=== PATIENT | female | born 1975 | race African-American/Black ===

== ENCOUNTER 2017-01-15 12:02 | Emergency (ER) | payer MEDICAID, OTHER ==
[~2017-01-15] VITALS: Ht 157.5 cm; Wt 87.0 kg
[~2017-01-15 12:02] MED LIST: ADVAIR; ALBU6.7H2; LOSARTAN; [UNRECOGNIZED DRUG - OTHER]
[2017-01-15 13:36] VITALS: BP 161/100
[2017-01-15 15:40] LABS: CLARITY URINE CLEAR (CLEAR); COLOR URINE YELLOW (YELLOW); GLUCOSE URINE NEGATIVE (NEGATIVE); KETONES URINE NEGATIVE (NEGATIVE); LEUKOCYTE ESTERASE URINE TRACE (NEGATIVE); NITRITE URINE NEGATIVE (NEGATIVE); OCCULT BLOOD URINE TRACE (NEGATIVE); PROTEIN URINE NEGATIVE (NEGATIVE); SPECIFIC GRAVITY URINE 1.025 (1.005-1.030)
[2017-01-15 15:55] LABS: RBC URINE 0-2 /hpf (0-2)
[2017-01-15 15:56] LABS: BACTERIA URINE TRACE; SQUAMOUS EPITHELIAL CELL URINE 1+ /lpf (RARE/1+)
== END 2017-01-15 17:40 | disposition home or self-care (01) ==
LOC: ER 13:36
DX: B34.9 Viral infection, unspecified (principal); N39.0 Urinary tract infection, site not specified; I10 Essential (primary) hypertension; J45.909 Unspecified asthma, uncomplicated
CPT/HCPCS: 81001; 99283

== ENCOUNTER 2017-02-08 08:13 | Emergency (ER) | payer OTHER ==
[~2017-02-08] VITALS: Ht 157.5 cm; Wt 85.0 kg
[2017-02-08 09:53] VITALS: BP 137/91
== END 2017-02-08 09:54 | disposition home or self-care (01) ==
LOC: ER 08:15
DX: J02.9 Acute pharyngitis, unspecified (principal); J06.9 Acute upper respiratory infection, unspecified; J45.909 Unspecified asthma, uncomplicated; I10 Essential (primary) hypertension; Z98.51 Tubal ligation status; H66.90 Otitis media, unspecified, unspecified ear; R05 Cough
CPT/HCPCS: 87070; 87430; 99284

== ENCOUNTER 2017-03-20 13:15 | Emergency (ER) | payer OTHER ==
[~2017-03-20] VITALS: Ht 157.5 cm; Wt 88.0 kg
[~2017-03-20 13:15] MED LIST changes: -[UNRECOGNIZED DRUG - OTHER]
[2017-03-20 15:33] LABS: CHLORIDE 109 mEq/L (98-107)
[2017-03-20 15:34] LABS: GLUCOSE URINE NEGATIVE (NEGATIVE); KETONES URINE NEGATIVE (NEGATIVE); LEUKOCYTE ESTERASE URINE 1+ (NEGATIVE); NITRITE URINE NEGATIVE (NEGATIVE); OCCULT BLOOD URINE NEGATIVE (NEGATIVE); PROTEIN URINE NEGATIVE (NEGATIVE); SPECIFIC GRAVITY URINE 1.021 (1.005-1.030)
[2017-03-20 15:36] LABS: CLARITY URINE SL HAZY (CLEAR); COLOR URINE PALE YELLOW (YELLOW)
[2017-03-20 15:40] LABS: CARBON DIOXIDE 26 mEq/L (21-32)
[2017-03-20 15:43] LABS: BASOPHILS % 0.8 % (0.0-2.0); EOSINOPHILS % 4.2 % (0.0-5.0); HEMATOCRIT. 34.1 % (36.0-48.0); HEMOGLOBIN. 11.2 g/dL (12.0-16.0); LYMPHOCYTES % 37.4 % (20.0-50.0); MEAN CORPUSCULAR HEMOGLOBIN 29.6 pg (28.0-32.0); MEAN CORPUSCULAR VOLUME 89.8 fL (81.0-99.0); MEAN PLATELET VOLUME 8.9 fl (7.4-10.4); MONOCYTES % 9.4 % (2.0-8.0); NEUTROPHILS % 48.2 % (40.0-76.0); PLATELET 267 x1000/uL (130-400); RED CELL DISTRIBUTION WIDTH 15.9 % (11.6-14.6)
[2017-03-20 16:39] VITALS: BP 121/69
== END 2017-03-20 16:40 | disposition home or self-care (01) ==
LOC: ER 15:30
DX: N39.0 Urinary tract infection, site not specified (principal); I10 Essential (primary) hypertension; J45.909 Unspecified asthma, uncomplicated
CPT/HCPCS: 36415; 80053; 81001; 81025; 85025; 99284; Z7610

== ENCOUNTER 2017-05-06 20:01 | Emergency (ER) | payer OTHER ==
[~2017-05-06] VITALS: Ht 157.5 cm; Wt 89.0 kg
[2017-05-07] MEDS ORDERED: FAMOTIDINE 20MG/2ML VIAL IV STA (00:49)
[2017-05-07] MEDS ORDERED: ONDANSETRON HCL 4MG/2ML VIAL IV STA (00:49)
[2017-05-07] MEDS ORDERED: MORPHINE SULFATE 4 MG/ML CPJ (NOT FOR IM USE) IV STA (00:49)
[2017-05-07] MEDS ORDERED: SODIUM CHLORIDE 0.9% 1,000 ML IV ONE (00:49)
[2017-05-07] MEDS ORDERED: MAGNESIUM/ALUMINUM HYDROXIDE/SIMETHICONE 30ML UDC PO STA (00:49)
[2017-05-07 01:18] LABS: BASOPHILS % 1.1 % (0.0-2.0); EOSINOPHILS % 4.5 % (0.0-5.0); HEMOGLOBIN. 11.5 g/dL (12.0-16.0); LYMPHOCYTES % 33.8 % (20.0-50.0); MEAN CORPUSCULAR HEMOGLOBIN 30.4 pg (28.0-32.0); MEAN CORPUSCULAR VOLUME 89.7 fL (81.0-99.0); MEAN PLATELET VOLUME 8.7 fl (7.4-10.4); MONOCYTES % 7.2 % (2.0-8.0); NEUTROPHILS % 53.4 % (40.0-76.0); PLATELET 261 x1000/uL (130-400); RED BLOOD CELL COUNT 3.79 mill/uL (4.2-5.4); RED CELL DISTRIBUTION WIDTH 15.9 % (11.6-14.6)
[2017-05-07 01:24] LABS: CHLORIDE 107 mEq/L (98-107)
[2017-05-07 01:26] LABS: INR 1.1
[2017-05-07 01:32] LABS: CARBON DIOXIDE 27 mEq/L (21-32)
[2017-05-07 01:55] LABS: CLARITY URINE CLOUDY (CLEAR); COLOR URINE YELLOW (YELLOW); GLUCOSE URINE NEGATIVE (NEGATIVE); KETONES URINE NEGATIVE (NEGATIVE); LEUKOCYTE ESTERASE URINE NEGATIVE (NEGATIVE); NITRITE URINE NEGATIVE (NEGATIVE); OCCULT BLOOD URINE NEGATIVE (NEGATIVE); PH URINE 6.5 (4.5-8.0); PROTEIN URINE NEGATIVE (NEGATIVE); SPECIFIC GRAVITY URINE 1.017 (1.005-1.030); UROBILINOGEN URINE 0.2 E.U./dL (0.2-1.0)
[2017-05-07] MEDS ORDERED: HYDROCODONE/APAP 7.5/325MG 1 TAB TABLET PO NR (02:15)
[2017-05-07 02:31] VITALS: BP 166/94
[2017-05-07] MEDS ORDERED: IPRATROPIUM/ALBUTEROL 0.5-3(2.5)MG/3ML NEB HHN ONE (04:30)
== END 2017-05-07 06:38 | disposition home or self-care (01) ==
LOC: ER 20:01
DX: K57.92 Diverticulitis of intestine, part unspecified, without perforation or abscess without bleeding (principal); J45.909 Unspecified asthma, uncomplicated; I10 Essential (primary) hypertension; N28.89 Other specified disorders of kidney and ureter; Z98.51 Tubal ligation status
CPT/HCPCS: 36415; 74176; 80053; 81001; 81025; 83690; 85025; 85610; 96361; 96374; 96375; 99285; J2270; J2405; J3490; J7030; Z7610; J7620

== ENCOUNTER 2017-05-24 18:52 | Emergency (ER) | payer OTHER ==
[~2017-05-24] VITALS: Ht 157.5 cm; Wt 88.0 kg
[2017-05-25 00:55] VITALS: BP 144/82
== END 2017-05-25 01:15 | disposition home or self-care (01) ==
LOC: ER 05-25 00:34
DX: H60.91 Unspecified otitis externa, right ear (principal); J30.9 Allergic rhinitis, unspecified; I10 Essential (primary) hypertension; J45.909 Unspecified asthma, uncomplicated
CPT/HCPCS: 99283

== ENCOUNTER 2017-08-18 11:29 | Emergency (ER) | payer OTHER ==
[~2017-08-18] VITALS: Ht 157.5 cm; Wt 91.0 kg
[2017-08-18 12:35] LABS: CLARITY URINE CLOUDY (CLEAR); COLOR URINE YELLOW (YELLOW); GLUCOSE URINE NEGATIVE (NEGATIVE); KETONES URINE NEGATIVE (NEGATIVE); LEUKOCYTE ESTERASE URINE NEGATIVE (NEGATIVE); NITRITE URINE NEGATIVE (NEGATIVE); OCCULT BLOOD URINE TRACE (NEGATIVE); PH URINE 5.5 (4.5-8.0); PROTEIN URINE NEGATIVE (NEGATIVE); SPECIFIC GRAVITY URINE 1.029 (1.005-1.030)
[2017-08-18] MEDS ORDERED: MORPHINE SULFATE 4 MG/ML CPJ (NOT FOR IM USE) IV STA (12:56)
[2017-08-18] MEDS ORDERED: SODIUM CHLORIDE 0.9% 1,000 ML IV ONE (12:56)
[2017-08-18] MEDS ORDERED: ONDANSETRON HCL 4MG/2ML VIAL IV STA (12:56)
[2017-08-18 13:35] LABS: BASOPHILS % 1.1 % (0.0-2.0); EOSINOPHILS % 5.8 % (0.0-5.0); HEMOGLOBIN. 11.4 g/dL (12.0-16.0); LYMPHOCYTES % 29.1 % (20.0-50.0); MEAN CORPUSCULAR HEMOGLOBIN 30.4 pg (28.0-32.0); MEAN CORPUSCULAR VOLUME 90.2 fL (81.0-99.0); MONOCYTES % 6.5 % (2.0-8.0); NEUTROPHILS % 57.5 % (40.0-76.0); PLATELET 307 x1000/uL (130-400); RED BLOOD CELL COUNT 3.76 mill/uL (4.2-5.4); RED CELL DISTRIBUTION WIDTH 15.6 % (11.6-14.6)
[2017-08-18 13:48] LABS: CARBON DIOXIDE 25 mEq/L (21-32); CHLORIDE 108 mEq/L (98-107)
[2017-08-18 13:49] LABS: HCG SCREEN NEGATIVE
[2017-08-18 15:12] VITALS: BP 141/75
[2017-08-18 15:56] LABS: INR 1.1
== END 2017-08-18 15:15 | disposition home or self-care (01) ==
LOC: ER 11:49
DX: N28.89 Other specified disorders of kidney and ureter (principal); R11.0 Nausea; J45.909 Unspecified asthma, uncomplicated; I10 Essential (primary) hypertension
CPT/HCPCS: 36415; 76770; 80053; 81001; 83690; 84703; 85025; 85610; 96361; 96374; 96375; 99285; J2270; J2405; J7030; Z7610

== ENCOUNTER 2017-09-15 11:26 | Observation (INO) | payer OTHER ==
[~2017-09-15] VITALS: Ht 157.5 cm; Wt 90.7 kg
[~2017-09-15 11:26] MED LIST changes: -ALBU6.7H2; +ALBU6.7H3
[2017-09-15 13:13] LABS: BASOPHILS % 0.9 % (0.0-2.0); EOSINOPHILS % 4.4 % (0.0-5.0); HEMATOCRIT. 35.1 % (36.0-48.0); HEMOGLOBIN. 11.6 g/dL (12.0-16.0); LYMPHOCYTES % 35.4 % (20.0-50.0); MEAN CORPUSCULAR HEMOGLOBIN 29.3 pg (28.0-32.0); MEAN CORPUSCULAR VOLUME 89.1 fL (81.0-99.0); MEAN PLATELET VOLUME 8.1 fl (7.4-10.4); MONOCYTES % 6.7 % (2.0-8.0); NEUTROPHILS % 52.6 % (40.0-76.0); PLATELET 298 x1000/uL (130-400); RED BLOOD CELL COUNT 3.94 mill/uL (4.2-5.4)
[2017-09-15] MEDS ORDERED: ACETAMINOPHEN 325MG TABLET PO ONE (13:15)
[2017-09-15 13:30] LABS: CARBON DIOXIDE 29 mEq/L (21-32); CHLORIDE 107 mEq/L (98-107)
[2017-09-15 13:30] LABS: CLARITY URINE CLOUDY (CLEAR); COLOR URINE YELLOW (YELLOW); GLUCOSE URINE NEGATIVE (NEGATIVE); KETONES URINE TRACE (NEGATIVE); LEUKOCYTE ESTERASE URINE TRACE (NEGATIVE); NITRITE URINE NEGATIVE (NEGATIVE); OCCULT BLOOD URINE NEGATIVE (NEGATIVE); PROTEIN URINE TRACE (NEGATIVE); SPECIFIC GRAVITY URINE 1.024 (1.005-1.030); UROBILINOGEN URINE 0.2 E.U./dL (0.2-1.0)
[2017-09-15 13:38] LABS: INR 1.1; PROTHROMBIN TIME 10.9 sec (9.4-11.6)
[2017-09-15 13:54] LABS: *AMPHETAMINES SCREEN URINE NEGATIVE (NEGATIVE); *BARBITURATES SCREEN URINE NEGATIVE (NEGATIVE); *BENZODIAZEPINES SCREEN URINE NEGATIVE (NEGATIVE); *COCAINE SCREEN URINE NEGATIVE (NEGATIVE); CANNABINOID URINE SCREEN NEGATIVE (NEGATIVE); METHADONE URINE SCREEN NEGATIVE (NEGATIVE); OPIATES URINE SCREEN NEGATIVE (NEGATIVE); PHENCYCLIDINE URINE SCREEN NEGATIVE (NEGATIVE)
[2017-09-15] MEDS ORDERED: IOHEXOL-300 100 ML BOTTLE ONE (18:49)
[2017-09-15 20:00] VITALS: BP 145/94
[2017-09-15] MEDS ORDERED: ACETAMINOPHEN 325MG TABLET PO PRN (21:45)
[2017-09-15] MEDS ORDERED: MAGNESIUM/ALUMINUM HYDROXIDE/SIMETHICONE 30ML UDC PO PRN (21:45)
[2017-09-15] MEDS ORDERED: DIPHENHYDRAMINE 50MG/ML VIAL IV PRN (21:45)
[2017-09-15] MEDS ORDERED: ONDANSETRON HCL 4MG/2ML VIAL IV PRN (21:45)
[2017-09-15] MEDS ORDERED: CLONIDINE 0.1MG TABLET PO PRN (21:45)
[2017-09-15] MEDS: MORPHINE SULFATE 2 MG/ML CPJ (NOT FOR IM USE) IV PRN (22:09)
[2017-09-16] VITALS: BP 128/79
[2017-09-16 04:00] VITALS: BP 128/79
[2017-09-16] MEDS: MORPHINE SULFATE 2 MG/ML CPJ (NOT FOR IM USE) IV PRN ×2 (06:24→10:59)
[2017-09-16] MEDS: DEXT 5%/0.45% NACL KCL 20MEQ/L 1,000 ML IV SCH ×2 (08:45→18:41)
[2017-09-16] MEDS ORDERED: FAMOTIDINE 20MG/2ML VIAL IV SCH (09:00)
[2017-09-16 12:00] VITALS: BP 161/93
[2017-09-16 16:00] VITALS: BP 133/85
[2017-09-16 20:00] VITALS: BP 133/85
[2017-09-16 20:14] VITALS: BP 133/65
== END 2017-09-16 20:40 | disposition home or self-care (01) ==
LOC: ER 12:42 → INTOOBSV 16:19 → 6EST 16:19 → EDBEDREQ 16:22 → ENRESERV 16:43
PROVIDERS: ADMIT Internal Medicine; ATTEND Internal Medicine
DX: K85.90 Acute pancreatitis without necrosis or infection, unspecified (principal); J44.9 Chronic obstructive pulmonary disease, unspecified; I10 Essential (primary) hypertension
CPT/HCPCS: 36415; 71010; 74177; 76705; 80053; 80305; 81001; 81025; 83690; 85025; 85610; 96361; 96374; 96375; 96376; 99285; G0378; J2270; J3490; Q9967

== ENCOUNTER 2018-01-04 18:44 | Emergency (ER) | payer OTHER ==
[~2018-01-04] VITALS: Ht 157.5 cm; Wt 105.0 kg
[2018-01-04 18:51] VITALS: BP 172/87
[2018-01-04] MEDS ORDERED: ACETAMINOPHEN 500MG TABLET PO ONE (20:15)
== END 2018-01-04 21:54 | disposition home or self-care (01) ==
LOC: ER 18:44
DX: S76.012A Strain of muscle, fascia and tendon of left hip, initial encounter (principal); S76.912A Strain of unspecified muscles, fascia and tendons at thigh level, left thigh, initial encounter; J45.909 Unspecified asthma, uncomplicated; Z85.528 Personal history of other malignant neoplasm of kidney; Z98.51 Tubal ligation status; Z98.890 Other specified postprocedural states; V49.88XA Car occupant (driver) (passenger) injured in other specified transport accidents, initial encounter; Y93.89 Activity, other specified; Y92.89 Other specified places as the place of occurrence of the external cause; Y99.8 Other external cause status
CPT/HCPCS: 72170; 99283; 99284

== ENCOUNTER 2018-02-23 08:26 | Emergency (ER) | payer OTHER ==
[~2018-02-23] VITALS: Ht 157.5 cm; Wt 93.0 kg
[2018-02-23 08:31] VITALS: BP 174/90
[2018-02-23] MEDS ORDERED: TETRACAINE 0.5% OPHTH DROPS 4ML RIGHTEYE ONE (08:45)
[2018-02-23] MEDS ORDERED: FLUORESCEIN SODIUM 1MG/STRIP RIGHTEYE ONE (09:00)
== END 2018-02-23 09:37 | disposition home or self-care (01) ==
LOC: ER 08:26
DX: H11.31 Conjunctival hemorrhage, right eye (principal); J45.909 Unspecified asthma, uncomplicated
CPT/HCPCS: 99283

== ENCOUNTER 2018-03-25 08:54 | Emergency (ER) | payer OTHER ==
[~2018-03-25] VITALS: Ht 157.5 cm; Wt 93.0 kg
[~2018-03-25 08:54] MED LIST changes: -ALBU6.7H3; +ALBU6.7H9
[2018-03-25 10:04] LABS: BASOPHILS % 0.8 % (0.0-2.0); EOSINOPHILS % 4.5 % (0.0-5.0); HEMATOCRIT. 33.8 % (36.0-48.0); HEMOGLOBIN. 11.1 g/dL (12.0-16.0); LYMPHOCYTES % 33.4 % (20.0-50.0); MEAN CORPUSCULAR HEMOGLOBIN 29.1 pg (28.0-32.0); MEAN PLATELET VOLUME 8.4 fl (7.4-10.4); MONOCYTES % 9.3 % (2.0-8.0); PLATELET 299 x1000/uL (130-400); RED CELL DISTRIBUTION WIDTH 15.8 % (11.6-14.6)
[2018-03-25 10:10] LABS: CHLORIDE 109 mEq/L (98-107)
[2018-03-25 10:11] LABS: PROTHROMBIN TIME 10.7 sec (9.4-11.6)
[2018-03-25] MEDS ORDERED: ACETAMINOPHEN 325MG TABLET PO ONE (10:45)
[2018-03-25] MEDS ORDERED: SODIUM CHLORIDE 0.9% 1,000 ML IV ONE (10:45)
[2018-03-25 10:54] LABS: CLARITY URINE CLEAR (CLEAR); COLOR URINE YELLOW (YELLOW); KETONES URINE NEGATIVE (NEGATIVE); LEUKOCYTE ESTERASE URINE NEGATIVE (NEGATIVE); NITRITE URINE NEGATIVE (NEGATIVE); OCCULT BLOOD URINE NEGATIVE (NEGATIVE); PH URINE 6.5 (4.5-8.0); PROTEIN URINE NEGATIVE (NEGATIVE); SPECIFIC GRAVITY URINE 1.015 (1.005-1.030); UROBILINOGEN URINE 0.2 E.U./dL (0.2-1.0)
[2018-03-25 17:25] VITALS: BP 155/78
== END 2018-03-25 17:46 | disposition short-term general hospital (02) ==
LOC: ER 08:54 → EDBEDREQ 11:01 → ER 17:46 → CANBEDREQ 19:23
DX: R07.9 Chest pain, unspecified (principal); N17.9 Acute kidney failure, unspecified; D64.9 Anemia, unspecified; E88.09 Other disorders of plasma-protein metabolism, not elsewhere classified; I10 Essential (primary) hypertension; J45.909 Unspecified asthma, uncomplicated
CPT/HCPCS: 36415; 71045; 80053; 81003; 82570; 83880; 84300; 84484; 84540; 85025; 85610; 93005; 96360; 96361; 99285; J7030; Z7610

== ENCOUNTER 2018-04-20 11:45 | Emergency (ER) | payer OTHER ==
[~2018-04-20] VITALS: Ht 157.5 cm; Wt 99.0 kg
[2018-04-20 13:02] VITALS: BP 147/96
[2018-04-20 13:39] LABS: HEMOGLOBIN 10.6 g/dL (12.0-16.0); MEAN CORPUSCULAR HEMOGLOBIN 29.1 pg (28.0-32.0); MEAN CORPUSCULAR VOLUME 88.1 fL (81.0-99.0); PLATELET 291 x1000/uL (130-400); RED BLOOD CELL COUNT 3.63 mill/uL (4.2-5.4); RED CELL DISTRIBUTION WIDTH 16.2 % (11.6-14.6)
== END 2018-04-20 13:20 | disposition home or self-care (01) ==
LOC: ER 11:45
DX: Z76.0 Encounter for issue of repeat prescription (principal); I10 Essential (primary) hypertension
CPT/HCPCS: 36415; 71045; 80048; 85027; 93005; 99285

== ENCOUNTER 2018-06-30 18:04 | Emergency (ER) | payer OTHER ==
[~2018-06-30] VITALS: Ht 170.2 cm; Wt 97.0 kg
[2018-06-30 20:42] LABS: EOSINOPHILS % 4.4 % (0.0-5.0); HEMATOCRIT. 33.7 % (36.0-48.0); HEMOGLOBIN. 10.8 g/dL (12.0-16.0); LYMPHOCYTES % 34.6 % (20.0-50.0); MEAN CORPUSCULAR VOLUME 87.5 fL (81.0-99.0); MEAN PLATELET VOLUME 8.3 fl (7.4-10.4); MONOCYTES % 7.4 % (2.0-8.0); NEUTROPHILS % 52.6 % (40.0-76.0); PLATELET 320 x1000/uL (130-400); RED BLOOD CELL COUNT 3.85 mill/uL (4.2-5.4); RED CELL DISTRIBUTION WIDTH 16.2 % (11.6-14.6)
[2018-06-30 20:49] LABS: CHLORIDE 107 mEq/L (98-107); PROTHROMBIN TIME 10.4 sec (9.1-11.1)
[2018-06-30] MEDS ORDERED: SODIUM CHLORIDE 0.9% 1,000 ML IV ONE (23:25)
[2018-06-30] MEDS ORDERED: MORPHINE SULFATE 4 MG/ML CPJ (NOT FOR IM USE) IV STA (23:25)
[2018-06-30] MEDS ORDERED: ONDANSETRON HCL 4MG/2ML INJ IV STA (23:25)
[2018-06-30 23:41] LABS: CLARITY URINE CLOUDY (CLEAR); COLOR URINE YELLOW (YELLOW); KETONES URINE TRACE (NEGATIVE); LEUKOCYTE ESTERASE URINE NEGATIVE (NEGATIVE); NITRITE URINE NEGATIVE (NEGATIVE); OCCULT BLOOD URINE NEGATIVE (NEGATIVE); PH URINE 5.5 (4.5-8.0); PROTEIN URINE TRACE (NEGATIVE); SPECIFIC GRAVITY URINE 1.024 (1.005-1.030); UROBILINOGEN URINE 0.2 E.U./dL (0.2-1.0)
[2018-07-01 01:49] VITALS: BP 123/88
== END 2018-07-01 01:54 | disposition home or self-care (01) ==
LOC: ER 18:04
DX: K85.90 Acute pancreatitis without necrosis or infection, unspecified (principal)
CPT/HCPCS: 36415; 74176; 80053; 81003; 81025; 83690; 85025; 85610; 96374; 96375; 99285; J2270; J2405; J7030

== ENCOUNTER 2018-07-16 10:29 | Emergency (ER) | payer OTHER ==
[~2018-07-16] VITALS: Ht 157.5 cm; Wt 97.0 kg
[2018-07-16] MEDS ORDERED: METOCLOPRAMIDE HCL 10MG/2ML VIAL IV ONE (11:00)
[2018-07-16] MEDS ORDERED: CLONIDINE 0.2MG TABLET PO ONE (11:00)
[2018-07-16] MEDS ORDERED: DIPHENHYDRAMINE 50MG/ML VIAL IV ONE (11:00)
[2018-07-16 11:18] LABS: CLARITY URINE CLEAR (CLEAR); COLOR URINE YELLOW (YELLOW); KETONES URINE TRACE (NEGATIVE); LEUKOCYTE ESTERASE URINE NEGATIVE (NEGATIVE); NITRITE URINE NEGATIVE (NEGATIVE); OCCULT BLOOD URINE 1+ (NEGATIVE); PH URINE 5.5 (4.5-8.0); PROTEIN URINE 1+ (NEGATIVE); SPECIFIC GRAVITY URINE 1.025 (1.005-1.030); UROBILINOGEN URINE 0.2 E.U./dL (0.2-1.0)
[2018-07-16 11:25] LABS: BASOPHILS % 1.4 % (0.0-2.0); EOSINOPHILS % 3.8 % (0.0-5.0); HEMATOCRIT. 34.5 % (36.0-48.0); HEMOGLOBIN. 11.2 g/dL (12.0-16.0); LYMPHOCYTES % 32.9 % (20.0-50.0); MEAN CORPUSCULAR HEMOGLOBIN 28.7 pg (28.0-32.0); MEAN CORPUSCULAR VOLUME 88.2 fL (81.0-99.0); MEAN PLATELET VOLUME 8.2 fl (7.4-10.4); MONOCYTES % 7.3 % (2.0-8.0); NEUTROPHILS % 54.6 % (40.0-76.0); PLATELET 330 x1000/uL (130-400); RED BLOOD CELL COUNT 3.91 mill/uL (4.2-5.4); RED CELL DISTRIBUTION WIDTH 16.5 % (11.6-14.6)
[2018-07-16 11:32] LABS: CHLORIDE 109 mEq/L (98-107)
[2018-07-16 11:36] LABS: PARTIAL THROMBOPLASTIN TIME 23.8 sec (23.4-31.0); PROTHROMBIN TIME 10.4 sec (9.1-11.1)
[2018-07-16 13:41] VITALS: BP 145/93
== END 2018-07-16 13:44 | disposition home or self-care (01) ==
LOC: ER 10:29
DX: G43.909 Migraine, unspecified, not intractable, without status migrainosus (principal); N39.0 Urinary tract infection, site not specified; H53.143 Visual discomfort, bilateral; J45.909 Unspecified asthma, uncomplicated; I10 Essential (primary) hypertension; Z98.51 Tubal ligation status; Z90.5 Acquired absence of kidney
CPT/HCPCS: 36415; 80053; 81003; 81025; 85025; 85610; 85730; 96374; 96375; 99284; J1200; J2765

== ENCOUNTER 2018-08-11 08:21 | Emergency (ER) | payer OTHER ==
[~2018-08-11] VITALS: Ht 162.6 cm; Wt 93.0 kg
[2018-08-11] MEDS ORDERED: HYDROCODONE/ACETAMINOPHEN 5/325MG TABLET PO ONE ×2 (09:15→11:00)
[2018-08-11 10:17] LABS: CLARITY URINE CLOUDY (CLEAR); COLOR URINE YELLOW (YELLOW); KETONES URINE NEGATIVE (NEGATIVE); LEUKOCYTE ESTERASE URINE NEGATIVE (NEGATIVE); NITRITE URINE NEGATIVE (NEGATIVE); OCCULT BLOOD URINE 2+ (NEGATIVE); PH URINE 5.5 (4.5-8.0); PROTEIN URINE TRACE (NEGATIVE); SPECIFIC GRAVITY URINE 1.023 (1.005-1.030); UROBILINOGEN URINE 0.2 E.U./dL (0.2-1.0)
[2018-08-11 11:15] VITALS: BP 121/85
== END 2018-08-11 11:20 | disposition home or self-care (01) ==
LOC: ER 08:21
DX: N39.0 Urinary tract infection, site not specified (principal); J45.909 Unspecified asthma, uncomplicated; I10 Essential (primary) hypertension; Z98.51 Tubal ligation status; Z98.890 Other specified postprocedural states
CPT/HCPCS: 81025; 99284

== ENCOUNTER 2018-08-28 08:25 | Emergency (ER) | payer OTHER ==
[~2018-08-28] VITALS: Ht 162.6 cm; Wt 85.5 kg
[2018-08-28] MEDS ORDERED: ONDANSETRON HCL 4MG/2ML INJ IV STA (09:33)
[2018-08-28] MEDS ORDERED: SODIUM CHLORIDE 0.9% 1,000 ML IV ONE (09:33)
[2018-08-28 10:18] LABS: PROTHROMBIN TIME 10.1 sec (9.1-11.1)
[2018-08-28 10:20] LABS: BASOPHILS % 0.9 % (0.0-2.0); EOSINOPHILS % 3.4 % (0.0-5.0); HEMATOCRIT. 37.8 % (36.0-48.0); HEMOGLOBIN. 12.4 g/dL (12.0-16.0); LYMPHOCYTES % 28.3 % (20.0-50.0); MEAN CORPUSCULAR HEMOGLOBIN 29.3 pg (28.0-32.0); MEAN CORPUSCULAR VOLUME 89.4 fL (81.0-99.0); MEAN PLATELET VOLUME 8.6 fl (7.4-10.4); NEUTROPHILS % 60.4 % (40.0-76.0); PLATELET 297 x1000/uL (130-400); RED BLOOD CELL COUNT 4.23 mill/uL (4.2-5.4); RED CELL DISTRIBUTION WIDTH 17.8 % (11.6-14.6)
[2018-08-28 10:25] LABS: CLARITY URINE CLOUDY (CLEAR); COLOR URINE YELLOW (YELLOW); KETONES URINE NEGATIVE (NEGATIVE); LEUKOCYTE ESTERASE URINE NEGATIVE (NEGATIVE); NITRITE URINE NEGATIVE (NEGATIVE); OCCULT BLOOD URINE NEGATIVE (NEGATIVE); PROTEIN URINE TRACE (NEGATIVE); SPECIFIC GRAVITY URINE 1.022 (1.005-1.030); UROBILINOGEN URINE 0.2 E.U./dL (0.2-1.0)
[2018-08-28] MEDS: MORPHINE SULFATE 4 MG/ML CPJ (NOT FOR IM USE) IV ONE ×2 (10:28→11:28)
[2018-08-28 10:36] LABS: CHLORIDE 108 mEq/L (98-107)
[2018-08-28 13:33] VITALS: BP 143/82
== END 2018-08-28 13:38 | disposition home or self-care (01) ==
LOC: ER 08:25
DX: R10.31 Right lower quadrant pain (principal); R11.2 Nausea with vomiting, unspecified; Z85.528 Personal history of other malignant neoplasm of kidney; Z90.5 Acquired absence of kidney
CPT/HCPCS: 36415; 74176; 80053; 81003; 81025; 83690; 85025; 85610; 93005; 96361; 96374; 96375; 99285; J2270; J2405; J7030

== ENCOUNTER 2018-09-25 13:47 | Emergency (ER) | payer OTHER ==
[~2018-09-25] VITALS: Ht 157.5 cm; Wt 93.0 kg
[2018-09-25] MEDS ORDERED: MORPHINE SULFATE 4 MG/ML CPJ (NOT FOR IM USE) IV STA (15:35)
[2018-09-25] MEDS ORDERED: ONDANSETRON HCL 4MG/2ML INJ IV STA (15:35)
[2018-09-25] MEDS ORDERED: FENTANYL CITRATE/PF 50MCG/ML 2ML VIAL IV ONE (15:45)
[2018-09-25 15:46] LABS: BASOPHILS % 0.7 % (0.0-2.0); HEMATOCRIT. 36.9 % (36.0-48.0); HEMOGLOBIN. 12.1 g/dL (12.0-16.0); LYMPHOCYTES % 37.1 % (20.0-50.0); MEAN CORPUSCULAR HEMOGLOBIN 29.5 pg (28.0-32.0); MEAN CORPUSCULAR VOLUME 89.7 fL (81.0-99.0); MEAN PLATELET VOLUME 8.8 fl (7.4-10.4); MONOCYTES % 7.8 % (2.0-8.0); NEUTROPHILS % 50.4 % (40.0-76.0); PLATELET 329 x1000/uL (130-400); RED BLOOD CELL COUNT 4.11 mill/uL (4.2-5.4); RED CELL DISTRIBUTION WIDTH 16.9 % (11.6-14.6)
[2018-09-25 15:49] LABS: CHLORIDE 108 mEq/L (98-107)
[2018-09-25 15:58] LABS: HCG SCREEN NEGATIVE
[2018-09-25 17:15] LABS: CLARITY URINE CLOUDY (CLEAR); COLOR URINE YELLOW (YELLOW); KETONES URINE NEGATIVE (NEGATIVE); LEUKOCYTE ESTERASE URINE NEGATIVE (NEGATIVE); NITRITE URINE NEGATIVE (NEGATIVE); OCCULT BLOOD URINE NEGATIVE (NEGATIVE); PH URINE 5.5 (4.5-8.0); PROTEIN URINE TRACE (NEGATIVE); SPECIFIC GRAVITY URINE 1.024 (1.005-1.030)
[2018-09-25 18:25] VITALS: BP 132/74
== END 2018-09-25 18:49 | disposition home or self-care (01) ==
LOC: ER 13:47
DX: R10.0 Acute abdomen (principal); I10 Essential (primary) hypertension
CPT/HCPCS: 36415; 74176; 80053; 81003; 81025; 83690; 84703; 85025; 85610; 96374; 96375; 99284; J2405; J3010

== ENCOUNTER 2018-10-07 10:28 | Emergency (ER) | payer OTHER ==
[~2018-10-07] VITALS: Ht 157.5 cm; Wt 98.0 kg
[2018-10-07] MEDS ORDERED: ONDANSETRON HCL 4MG/2ML INJ IV STA (11:31)
[2018-10-07] MEDS ORDERED: SODIUM CHLORIDE 0.9% 1,000 ML IV ONE (11:31)
[2018-10-07] MEDS ORDERED: MORPHINE SULFATE 10 MG/ML CPJ IV ONE (11:45)
[2018-10-07 12:08] LABS: EOSINOPHILS % 5.1 % (0.0-5.0); HEMATOCRIT. 38.5 % (36.0-48.0); HEMOGLOBIN. 12.6 g/dL (12.0-16.0); LYMPHOCYTES % 29.4 % (20.0-50.0); MEAN CORPUSCULAR HEMOGLOBIN 29.3 pg (28.0-32.0); MEAN CORPUSCULAR VOLUME 89.3 fL (81.0-99.0); MEAN PLATELET VOLUME 8.2 fl (7.4-10.4); MONOCYTES % 6.3 % (2.0-8.0); NEUTROPHILS % 58.2 % (40.0-76.0); PLATELET 359 x1000/uL (130-400); RED BLOOD CELL COUNT 4.31 mill/uL (4.2-5.4); RED CELL DISTRIBUTION WIDTH 16.3 % (11.6-14.6)
[2018-10-07 12:13] LABS: CHLORIDE 103 mEq/L (98-107)
[2018-10-07 12:19] LABS: INR 1.1; PROTHROMBIN TIME 10.7 sec (9.1-11.1)
[2018-10-07 18:02] LABS: CLARITY URINE CLOUDY (CLEAR); COLOR URINE YELLOW (YELLOW); KETONES URINE NEGATIVE (NEGATIVE); LEUKOCYTE ESTERASE URINE TRACE (NEGATIVE); NITRITE URINE NEGATIVE (NEGATIVE); OCCULT BLOOD URINE TRACE (NEGATIVE); PH URINE 5.5 (4.5-8.0); PROTEIN URINE NEGATIVE (NEGATIVE); SPECIFIC GRAVITY URINE 1.022 (1.005-1.030)
[2018-10-07 19:25] VITALS: BP 142/70
== END 2018-10-07 19:32 | disposition home or self-care (01) ==
LOC: ER 10:28
DX: D27.9 Benign neoplasm of unspecified ovary (principal); N39.0 Urinary tract infection, site not specified; R10.2 Pelvic and perineal pain
CPT/HCPCS: 36415; 74176; 76830; 76856; 80053; 81003; 81025; 83605; 83690; 85025; 85610; 93005; 93976; 96374; 96375; 99284; J2270; J2405; J7030

== ENCOUNTER 2018-12-06 14:00 | Inpatient (IN) | payer OTHER ==
[~2018-12-06] VITALS: Ht 157.5 cm; Wt 99.8 kg
[~2018-12-06 14:00] MED LIST changes: -ALBU6.7H9; +ALBU6.7H9 INH; +HYDR12.54 MT; -LOSARTAN
[2018-12-06] MEDS ORDERED: ASPIRIN 81MG TABLET PO ONE (15:45)
[2018-12-06] MEDS ORDERED: ALBUTEROL (0.083%) 2.5MG/3ML NEB HHN STA ×2 (16:23→20:01)
[2018-12-06] MEDS ORDERED: IPRATROPIUM BROMIDE (0.02%) 0.5MG/2.5ML NEB HHN STA ×2 (16:23→20:01)
[2018-12-06 16:40] LABS: BASOPHILS % 0.9 % (0.0-2.0); HEMATOCRIT. 37.7 % (36.0-48.0); HEMOGLOBIN. 12.3 g/dL (12.0-16.0); LYMPHOCYTES % 36.2 % (20.0-50.0); MEAN CORPUSCULAR HEMOGLOBIN 29.7 pg (28.0-32.0); MEAN CORPUSCULAR VOLUME 90.7 fL (81.0-99.0); MEAN PLATELET VOLUME 8.3 fl (7.4-10.4); MONOCYTES % 8.6 % (2.0-8.0); NEUTROPHILS % 50.3 % (40.0-76.0); PLATELET 310 x1000/uL (130-400); RED BLOOD CELL COUNT 4.16 mill/uL (4.2-5.4); RED CELL DISTRIBUTION WIDTH 15.7 % (11.6-14.6)
[2018-12-06 16:45] LABS: CHLORIDE 110 mEq/L (98-107)
[2018-12-06] MEDS ORDERED: METHYLPREDNISOLONE SOD SUCC 125 MG/2 ML VIAL IV STA (20:01)
[2018-12-06] MEDS ORDERED: SODIUM CHLORIDE 0.9% 1,000 ML IV ONE (21:15)
[2018-12-06] MEDS ORDERED: FLUT1DIS2 IH (23:23)
[2018-12-06 23:30] VITALS: BP 147/62
[2018-12-07] MEDS ORDERED: IPRATROPIUM/ALBUTEROL 0.5-3(2.5)MG/3ML NEB HHN PRN (02:00)
[2018-12-07 04:00] VITALS: BP 144/65
[2018-12-07 05:48] LABS: HEMATOCRIT. 33.6 % (36.0-48.0); HEMOGLOBIN. 10.9 g/dL (12.0-16.0); MEAN CORPUSCULAR HEMOGLOBIN 29.1 pg (28.0-32.0); MEAN CORPUSCULAR VOLUME 90.1 fL (81.0-99.0); MEAN PLATELET VOLUME 8.8 fl (7.4-10.4); PLATELET 305 x1000/uL (130-400); RED BLOOD CELL COUNT 3.73 mill/uL (4.2-5.4); RED CELL DISTRIBUTION WIDTH 15.5 % (11.6-14.6)
[2018-12-07 07:48] VITALS: BP 141/61
[2018-12-07] MEDS ORDERED: PNEUMOCOCCAL 23-VAL P-SAC VAC 0.5 ML IM ONE (08:00)
[2018-12-07] MEDS ORDERED: PREDNISONE 20MG TABLET PO SCH (09:00)
[2018-12-07] MEDS ORDERED: ENOXAPARIN 30MG/0.3ML SYR SUBCUT SCH (09:00)
[2018-12-07 11:55] VITALS: BP 104/72
[2018-12-07 12:21] LABS: PLATELET ESTIMATE NORMAL
[2018-12-07 14:09] VITALS: BP 109/75
== END 2018-12-07 16:45 | disposition home or self-care (01) | DRG 141 ==
LOC: ER 14:46 → EDBEDREQTM 21:10 → 7WST 21:10 → EDBEDREQ 21:10 → ENRESERV 22:19
PROVIDERS: ADMIT Internal Medicine; ATTEND Internal Medicine
DX: J45.901 Unspecified asthma with (acute) exacerbation (principal); E87.8 Other disorders of electrolyte and fluid balance, not elsewhere classified; I12.9 Hypertensive chronic kidney disease with stage 1 through stage 4 chronic kidney disease, or unspecified chronic kidney disease; N18.9 Chronic kidney disease, unspecified; Z80.41 Family history of malignant neoplasm of ovary; Z80.42 Family history of malignant neoplasm of prostate; Z82.49 Family history of ischemic heart disease and other diseases of the circulatory system; Z85.528 Personal history of other malignant neoplasm of kidney; Z90.5 Acquired absence of kidney; Z98.51 Tubal ligation status
CPT/HCPCS: 36415; 71045; 80048; 83880; 84484; 93005; 94640; 96361; 96374; 99285; J1650; J2930; J7512; J7611

== ENCOUNTER 2019-01-11 10:19 | Emergency (ER) | payer OTHER ==
[~2019-01-11] VITALS: Ht 157.5 cm; Wt 97.0 kg
[~2019-01-11 10:19] MED LIST changes: -ADVAIR; +FLUT1DIS2 IH
[2019-01-11] MEDS ORDERED: ONDANSETRON HCL 4MG/2ML INJ IV STA (14:02)
[2019-01-11] MEDS ORDERED: MORPHINE SULFATE 4 MG/ML CPJ (NOT FOR IM USE) IV STA (14:02)
[2019-01-11] MEDS ORDERED: SODIUM CHLORIDE 0.9% 1,000 ML IV ONE (14:02)
[2019-01-11] MEDS ORDERED: FAMOTIDINE 20MG/2ML VIAL IV ONE (14:15)
[2019-01-11 15:01] LABS: BASOPHILS % 1.1 % (0.0-2.0); EOSINOPHILS % 3.8 % (0.0-5.0); HEMATOCRIT. 41.1 % (36.0-48.0); HEMOGLOBIN. 13.8 g/dL (12.0-16.0); LYMPHOCYTES % 29.1 % (20.0-50.0); MEAN CORPUSCULAR HEMOGLOBIN 30.2 pg (28.0-32.0); MEAN CORPUSCULAR VOLUME 90.2 fL (81.0-99.0); MEAN PLATELET VOLUME 8.9 fl (7.4-10.4); MONOCYTES % 6.5 % (2.0-8.0); NEUTROPHILS % 59.5 % (40.0-76.0); PLATELET 315 x1000/uL (130-400); RED BLOOD CELL COUNT 4.56 mill/uL (4.2-5.4); RED CELL DISTRIBUTION WIDTH 16.5 % (11.6-14.6)
[2019-01-11 15:03] LABS: CHLORIDE 103 mEq/L (98-107)
[2019-01-11 15:06] LABS: PARTIAL THROMBOPLASTIN TIME 24.8 sec (23.4-31.0); PROTHROMBIN TIME 10.4 sec (9.1-11.1)
[2019-01-11 15:09] LABS: HCG SCREEN NEGATIVE
[2019-01-11] MEDS ORDERED: KETOROLAC 15MG/ML VIAL IV ONE (15:15)
[2019-01-11 16:51] LABS: CLARITY URINE CLEAR (CLEAR); COLOR URINE YELLOW (YELLOW); KETONES URINE NEGATIVE (NEGATIVE); LEUKOCYTE ESTERASE URINE TRACE (NEGATIVE); NITRITE URINE NEGATIVE (NEGATIVE); OCCULT BLOOD URINE 3+ (NEGATIVE); PROTEIN URINE NEGATIVE (NEGATIVE); SPECIFIC GRAVITY URINE 1.023 (1.005-1.030); UROBILINOGEN URINE 0.2 E.U./dL (0.2-1.0)
[2019-01-11 17:36] VITALS: BP 100/93
== END 2019-01-11 18:26 | disposition home or self-care (01) ==
LOC: ER 10:36
DX: N39.0 Urinary tract infection, site not specified (principal); K57.92 Diverticulitis of intestine, part unspecified, without perforation or abscess without bleeding; N28.9 Disorder of kidney and ureter, unspecified; N83.209 Unspecified ovarian cyst, unspecified side; D21.9 Benign neoplasm of connective and other soft tissue, unspecified
CPT/HCPCS: 36415; 74176; 80053; 81003; 83605; 83690; 84484; 84703; 85025; 85610; 85730; 87040; 87086; 96374; 96375; 99284; J1885; J2270; J2405; J3490; J7030; Z7610

== ENCOUNTER 2019-01-21 08:05 | Emergency (ER) | payer OTHER ==
[~2019-01-21] VITALS: Ht 165.1 cm; Wt 91.0 kg
[2019-01-21 14:10] VITALS: BP 142/78
== END 2019-01-21 14:00 | disposition home or self-care (01) ==
LOC: ER 08:05
DX: J06.9 Acute upper respiratory infection, unspecified (principal); J45.909 Unspecified asthma, uncomplicated; I10 Essential (primary) hypertension; Z98.51 Tubal ligation status; Z88.5 Allergy status to narcotic agent
CPT/HCPCS: 87070; 87430; 99283

== ENCOUNTER 2019-02-22 08:24 | Emergency (ER) | payer OTHER ==
[~2019-02-22] VITALS: Ht 170.2 cm; Wt 99.0 kg
[2019-02-22] MEDS ORDERED: ASPIRIN 81MG TABLET PO ONE (09:30)
[2019-02-22] MEDS: NITROGLYCERIN 0.4MG TABLET SL SL PRN ×3 (09:39→19:14)
[2019-02-22 10:01] LABS: BASOPHILS % 0.8 % (0.0-2.0); EOSINOPHILS % 5.4 % (0.0-5.0); HEMATOCRIT. 34.4 % (36.0-48.0); HEMOGLOBIN. 11.4 g/dL (12.0-16.0); LYMPHOCYTES % 37.4 % (20.0-50.0); MEAN CORPUSCULAR HEMOGLOBIN 29.6 pg (28.0-32.0); MEAN CORPUSCULAR VOLUME 88.9 fL (81.0-99.0); MEAN PLATELET VOLUME 8.4 fl (7.4-10.4); MONOCYTES % 8.9 % (2.0-8.0); NEUTROPHILS % 47.5 % (40.0-76.0); PLATELET 290 x1000/uL (130-400); RED BLOOD CELL COUNT 3.87 mill/uL (4.2-5.4)
[2019-02-22 10:07] LABS: CHLORIDE 108 mEq/L (98-107)
[2019-02-22 10:26] LABS: HCG SCREEN NEGATIVE
[2019-02-22] MEDS ORDERED: AMLODIPINE 5MG TABLET PO NR (19:07)
[2019-02-22 19:36] VITALS: BP 136/79
[2019-02-23] MEDS ORDERED: ASPIRIN 81MG TABLET PO SCH (09:00)
[2019-02-23] MEDS ORDERED: AMLODIPINE 5MG TABLET PO SCH (09:00)
== END 2019-02-22 19:48 | disposition short-term general hospital (02) ==
LOC: ER 08:24 → ENRESERV 18:52 → CANRESERV 18:52 → ER 19:48 → CANBEDREQ 20:06
DX: R07.89 Other chest pain (principal); C64.9 Malignant neoplasm of unspecified kidney, except renal pelvis; E86.0 Dehydration; J45.901 Unspecified asthma with (acute) exacerbation; D64.9 Anemia, unspecified; I12.9 Hypertensive chronic kidney disease with stage 1 through stage 4 chronic kidney disease, or unspecified chronic kidney disease; N18.9 Chronic kidney disease, unspecified
CPT/HCPCS: 36415; 71045; 81025; 83880; 84484; 84703; 93005; 99285

== ENCOUNTER 2019-03-21 09:27 | Emergency (ER) | payer OTHER ==
[~2019-03-21] VITALS: Ht 160 cm; Wt 99.0 kg
[2019-03-21] MEDS ORDERED: SODIUM CHLORIDE 0.9% 1,000 ML IV ONE (10:18)
[2019-03-21] MEDS ORDERED: KETOROLAC 30MG/ML VIAL IV STA (10:18)
[2019-03-21] MEDS ORDERED: ONDANSETRON HCL 4MG/2ML INJ IV STA (10:18)
[2019-03-21 10:30] LABS: BASOPHILS % 1.2 % (0.0-2.0); EOSINOPHILS % 4.8 % (0.0-5.0); HEMATOCRIT. 33.8 % (36.0-48.0); HEMOGLOBIN. 11.3 g/dL (12.0-16.0); MEAN CORPUSCULAR HEMOGLOBIN 29.9 pg (28.0-32.0); MEAN CORPUSCULAR VOLUME 89.9 fL (81.0-99.0); MEAN PLATELET VOLUME 7.9 fl (7.4-10.4); MONOCYTES % 9.4 % (2.0-8.0); NEUTROPHILS % 49.6 % (40.0-76.0); PLATELET 271 x1000/uL (130-400); RED BLOOD CELL COUNT 3.76 mill/uL (4.2-5.4); RED CELL DISTRIBUTION WIDTH 16.1 % (11.6-14.6)
[2019-03-21] MEDS ORDERED: SUMATRIPTAN SUCCINATE 6MG/0.5ML VIAL SUBCUT ONE (10:30)
[2019-03-21 10:35] LABS: CHLORIDE 108 mEq/L (98-107)
[2019-03-21 10:43] LABS: CLARITY URINE CLOUDY (CLEAR); COLOR URINE YELLOW (YELLOW); KETONES URINE NEGATIVE (NEGATIVE); LEUKOCYTE ESTERASE URINE TRACE (NEGATIVE); NITRITE URINE NEGATIVE (NEGATIVE); OCCULT BLOOD URINE NEGATIVE (NEGATIVE); PH URINE 6.5 (4.5-8.0); PROTEIN URINE NEGATIVE (NEGATIVE); SPECIFIC GRAVITY URINE 1.021 (1.005-1.030); UROBILINOGEN URINE 0.2 E.U./dL (0.2-1.0)
[2019-03-21 12:17] VITALS: BP 153/73
== END 2019-03-21 12:19 | disposition home or self-care (01) ==
LOC: ER 09:27
DX: R51 Headache (principal); I13.10 Hypertensive heart and chronic kidney disease without heart failure, with stage 1 through stage 4 chronic kidney disease, or unspecified chronic kidney disease; N18.9 Chronic kidney disease, unspecified; J45.909 Unspecified asthma, uncomplicated; Z98.51 Tubal ligation status; Z85.528 Personal history of other malignant neoplasm of kidney; Z98.890 Other specified postprocedural states; Z79.899 Other long term (current) drug therapy; Z88.5 Allergy status to narcotic agent
CPT/HCPCS: 36415; 80053; 81003; 81025; 85025; 96361; 96372; 96374; 96375; 99283; J1885; J2405; J3030; J7030; Z7610

== ENCOUNTER 2019-04-22 08:35 | Emergency (ER) | payer OTHER ==
[~2019-04-22] VITALS: Ht 157.5 cm; Wt 97.0 kg
[2019-04-22 09:34] LABS: CLARITY URINE CLEAR (CLEAR); COLOR URINE YELLOW (YELLOW); KETONES URINE TRACE (NEGATIVE); LEUKOCYTE ESTERASE URINE TRACE (NEGATIVE); NITRITE URINE NEGATIVE (NEGATIVE); OCCULT BLOOD URINE 3+ (NEGATIVE); PROTEIN URINE 1+ (NEGATIVE); SPECIFIC GRAVITY URINE 1.024 (1.005-1.030)
[2019-04-22 09:37] LABS: BASOPHILS % 1.3 % (0.0-2.0); EOSINOPHILS % 3.2 % (0.0-5.0); HEMATOCRIT. 35.4 % (36.0-48.0); MEAN CORPUSCULAR HEMOGLOBIN 30.7 pg (28.0-32.0); MEAN PLATELET VOLUME 8.9 fl (7.4-10.4); MONOCYTES % 7.6 % (2.0-8.0); NEUTROPHILS % 53.9 % (40.0-76.0); PLATELET 325 x1000/uL (130-400); RED BLOOD CELL COUNT 3.89 mill/uL (4.2-5.4); RED CELL DISTRIBUTION WIDTH 16.9 % (11.6-14.6)
[2019-04-22 09:47] LABS: PARTIAL THROMBOPLASTIN TIME 22.4 sec (23.4-31.0); PROTHROMBIN TIME 10.2 sec (9.6-11.0)
[2019-04-22 10:16] LABS: CHLORIDE 109 mEq/L (98-107)
[2019-04-22 13:23] VITALS: BP 129/81
== END 2019-04-22 13:28 | disposition home or self-care (01) ==
LOC: ER 08:35
DX: N93.8 Other specified abnormal uterine and vaginal bleeding (principal); J45.909 Unspecified asthma, uncomplicated; I10 Essential (primary) hypertension; Z98.51 Tubal ligation status; Z98.890 Other specified postprocedural states; Z88.5 Allergy status to narcotic agent; Z79.899 Other long term (current) drug therapy; Z85.528 Personal history of other malignant neoplasm of kidney
CPT/HCPCS: 36415; 76830; 76856; 81025; 86850; 86900; 99284

== ENCOUNTER 2019-06-29 11:22 | Emergency (ER) | payer OTHER ==
[~2019-06-29] VITALS: Ht 157.5 cm; Wt 94.0 kg
[2019-06-29] MEDS ORDERED: SODIUM CHLORIDE 0.9% 1,000 ML IV ONE (14:51)
[2019-06-29] MEDS ORDERED: TRAMADOL 50MG TABLET PO ONE (15:00)
[2019-06-29 16:04] LABS: CLARITY URINE CLEAR (CLEAR); COLOR URINE YELLOW (YELLOW); KETONES URINE NEGATIVE (NEGATIVE); LEUKOCYTE ESTERASE URINE NEGATIVE (NEGATIVE); NITRITE URINE NEGATIVE (NEGATIVE); OCCULT BLOOD URINE NEGATIVE (NEGATIVE); PROTEIN URINE NEGATIVE (NEGATIVE); SPECIFIC GRAVITY URINE 1.021 (1.005-1.030)
[2019-06-29 16:05] LABS: BASOPHILS % 1.1 % (0.0-2.0); EOSINOPHILS % 3.6 % (0.0-5.0); HEMATOCRIT. 37.9 % (36.0-48.0); HEMOGLOBIN. 12.5 g/dL (12.0-16.0); LYMPHOCYTES % 32.9 % (20.0-50.0); MEAN CORPUSCULAR HEMOGLOBIN 30.5 pg (28.0-32.0); MEAN CORPUSCULAR VOLUME 92.7 fL (81.0-99.0); MEAN PLATELET VOLUME 9.3 fl (7.4-10.4); MONOCYTES % 8.6 % (2.0-8.0); NEUTROPHILS % 53.8 % (40.0-76.0); PLATELET 297 x1000/uL (130-400); RED BLOOD CELL COUNT 4.09 mill/uL (4.2-5.4); RED CELL DISTRIBUTION WIDTH 15.9 % (11.6-14.6)
[2019-06-29 16:07] LABS: CHLORIDE 106 mEq/L (98-107); PROTHROMBIN TIME 10.1 sec (9.6-11.0)
[2019-06-29 16:08] LABS: HCG SCREEN NEGATIVE
[2019-06-29 22:02] VITALS: BP 175/81
== END 2019-06-29 22:03 | disposition short-term general hospital (02) ==
LOC: ER 11:22 → CANBEDREQ 19:41 → ER 22:03
DX: K85.90 Acute pancreatitis without necrosis or infection, unspecified (principal); R73.9 Hyperglycemia, unspecified; J45.909 Unspecified asthma, uncomplicated; I10 Essential (primary) hypertension; Z98.51 Tubal ligation status; Z98.890 Other specified postprocedural states; Z88.5 Allergy status to narcotic agent; Z79.899 Other long term (current) drug therapy
CPT/HCPCS: 36415; 74176; 80053; 80061; 81003; 81025; 82150; 83690; 84703; 85025; 85610; 99285; J7030

== ENCOUNTER 2019-07-30 08:30 | Emergency (ER) | payer OTHER ==
[~2019-07-30] VITALS: Ht 157.5 cm; Wt 96.0 kg
[2019-07-30 09:28] VITALS: BP 159/81
[2019-07-30] MEDS ORDERED: KETOROLAC 60MG/2ML VIAL IM ONE (09:30)
[2019-07-30 09:49] LABS: CLARITY URINE CLOUDY (CLEAR); COLOR URINE YELLOW (YELLOW); KETONES URINE NEGATIVE (NEGATIVE); LEUKOCYTE ESTERASE URINE TRACE (NEGATIVE); NITRITE URINE NEGATIVE (NEGATIVE); OCCULT BLOOD URINE NEGATIVE (NEGATIVE); PROTEIN URINE TRACE (NEGATIVE); SPECIFIC GRAVITY URINE 1.024 (1.005-1.030)
== END 2019-07-30 10:54 | disposition home or self-care (01) ==
LOC: ER 08:30
DX: N39.0 Urinary tract infection, site not specified (principal); I10 Essential (primary) hypertension; Z88.2 Allergy status to sulfonamides; Z98.51 Tubal ligation status; Z88.5 Allergy status to narcotic agent; Z85.528 Personal history of other malignant neoplasm of kidney; Z90.5 Acquired absence of kidney
CPT/HCPCS: 81003; 96372; 99283; J1885

== ENCOUNTER 2019-09-09 12:42 | Emergency (ER) | payer OTHER ==
[~2019-09-09] VITALS: Ht 157.5 cm; Wt 95.0 kg
[2019-09-09] MEDS ORDERED: SODIUM CHLORIDE 0.9% 1000ML BAG (SEPSIS BOLUS) IV ONE (16:45)
[2019-09-09] MEDS ORDERED: KETOROLAC 30MG/ML VIAL IV ONE (16:45)
[2019-09-09 17:24] LABS: CHLORIDE 106 mEq/L (98-107); PROTHROMBIN TIME 10.7 sec (9.6-11.0)
[2019-09-09 17:32] LABS: EOSINOPHILS % 3.5 % (0.0-5.0); HEMATOCRIT. 37.7 % (36.0-48.0); HEMOGLOBIN. 12.8 g/dL (12.0-16.0); LYMPHOCYTES % 33.9 % (20.0-50.0); MEAN CORPUSCULAR VOLUME 91.7 fL (81.0-99.0); MEAN PLATELET VOLUME 8.7 fl (7.4-10.4); MONOCYTES % 5.4 % (2.0-8.0); NEUTROPHILS % 56.2 % (40.0-76.0); PLATELET 352 x1000/uL (130-400); RED BLOOD CELL COUNT 4.12 mill/uL (4.2-5.4); RED CELL DISTRIBUTION WIDTH 15.3 % (11.6-14.6)
[2019-09-09 19:01] LABS: CLARITY URINE CLOUDY (CLEAR); COLOR URINE YELLOW (YELLOW); KETONES URINE NEGATIVE (NEGATIVE); LEUKOCYTE ESTERASE URINE NEGATIVE (NEGATIVE); NITRITE URINE NEGATIVE (NEGATIVE); OCCULT BLOOD URINE NEGATIVE (NEGATIVE); PROTEIN URINE NEGATIVE (NEGATIVE); UROBILINOGEN URINE 0.2 E.U./dL (0.2-1.0)
[2019-09-09] MEDS ORDERED: POTASSIUM CHLORIDE 20MEQ TABLET SR PO SCH (19:30)
[2019-09-09 20:00] VITALS: BP 172/93
== END 2019-09-09 21:03 | disposition home or self-care (01) ==
LOC: ER 12:42 → CANBEDREQ 21:17
DX: J06.9 Acute upper respiratory infection, unspecified (principal); J20.9 Acute bronchitis, unspecified; I10 Essential (primary) hypertension; Z98.51 Tubal ligation status; Z85.9 Personal history of malignant neoplasm, unspecified
CPT/HCPCS: 36415; 71045; 80053; 81003; 83605; 84145; 84484; 85025; 85610; 87040; 87086; 93005; 96374; 99284; J1885; J7030

== ENCOUNTER 2019-12-14 14:37 | Emergency (ER) | payer MEDICAID ==
[~2019-12-14] VITALS: Ht 160 cm; Wt 68.0 kg
[~2019-12-14 14:37] MED LIST changes: +AMLO10TA80 MT
[2019-12-14] MEDS ORDERED: ASPIRIN 81MG TABLET PO ONE (16:30)
[2019-12-14 16:41] LABS: BASOPHILS % 1.1 % (0.0-2.0); EOSINOPHILS % 4.3 % (0.0-5.0); HEMATOCRIT. 37.3 % (36.0-48.0); HEMOGLOBIN. 12.5 g/dL (12.0-16.0); LYMPHOCYTES % 39.4 % (20.0-50.0); MEAN CORPUSCULAR HEMOGLOBIN 30.4 pg (28.0-32.0); MEAN CORPUSCULAR VOLUME 90.4 fL (81.0-99.0); MEAN PLATELET VOLUME 8.8 fl (7.4-10.4); MONOCYTES % 7.4 % (2.0-8.0); NEUTROPHILS % 47.8 % (40.0-76.0); PLATELET 295 x1000/uL (130-400); RED BLOOD CELL COUNT 4.12 mill/uL (4.2-5.4); RED CELL DISTRIBUTION WIDTH 15.7 % (11.6-14.6)
[2019-12-14 16:47] LABS: CHLORIDE 109 mEq/L (98-107)
[2019-12-14] MEDS ORDERED: ALBUTEROL (0.083%) 2.5MG/3ML NEB HHN STA (19:01)
[2019-12-14 20:16] VITALS: BP 140/85
== END 2019-12-14 20:44 | disposition home or self-care (01) ==
LOC: ER 14:37
DX: J45.909 Unspecified asthma, uncomplicated (principal); R07.89 Other chest pain; I10 Essential (primary) hypertension; Z88.2 Allergy status to sulfonamides; Z79.899 Other long term (current) drug therapy; Z98.890 Other specified postprocedural states
CPT/HCPCS: 36415; 71045; 80053; 81025; 83880; 84484; 85025; 93005; 94640; 99285; J7610; Z7610

== ENCOUNTER 2019-12-28 09:16 | Emergency (ER) | payer MEDICAID ==
[~2019-12-28] VITALS: Ht 157.5 cm; Wt 100.0 kg
[2019-12-28] MEDS ORDERED: SODIUM CHLORIDE 0.9% 1,000 ML IV ONE (10:10)
[2019-12-28] MEDS ORDERED: ALBUTEROL (0.083%) 2.5MG/3ML NEB HHN STA (10:10)
[2019-12-28] MEDS ORDERED: METHYLPREDNISOLONE SOD SUCC 125 MG/2 ML VIAL IV STA (10:10)
[2019-12-28] MEDS ORDERED: IPRATROPIUM BROMIDE (0.02%) 0.5MG/2.5ML NEB HHN STA (10:10)
[2019-12-28 10:43] LABS: HEMOGLOBIN. 12.2 g/dL (12.0-16.0); LYMPHOCYTES % 33.9 % (20.0-50.0); MEAN CORPUSCULAR HEMOGLOBIN 30.8 pg (28.0-32.0); MEAN PLATELET VOLUME 8.2 fl (7.4-10.4); MONOCYTES % 7.3 % (2.0-8.0); NEUTROPHILS % 53.8 % (40.0-76.0); PLATELET 306 x1000/uL (130-400); RED BLOOD CELL COUNT 3.96 mill/uL (4.2-5.4); RED CELL DISTRIBUTION WIDTH 15.7 % (11.6-14.6)
[2019-12-28 10:51] LABS: CHLORIDE 110 mEq/L (98-107)
[2019-12-28 11:01] LABS: HCG SCREEN NEGATIVE
[2019-12-28 14:57] VITALS: BP 152/81
== END 2019-12-28 15:01 | disposition home or self-care (01) ==
LOC: ER 09:16
DX: R07.89 Other chest pain (principal); J45.901 Unspecified asthma with (acute) exacerbation; I10 Essential (primary) hypertension; Z88.2 Allergy status to sulfonamides; Z79.899 Other long term (current) drug therapy; Z98.890 Other specified postprocedural states; Z98.51 Tubal ligation status; Z90.5 Acquired absence of kidney
CPT/HCPCS: 36415; 71045; 78582; 80053; 81025; 83880; 84484; 84703; 85025; 85379; 93005; 93970; 94640; 96374; 99285; A9540; A9558; J2930; J7030; Z7610

== ENCOUNTER 2020-02-21 10:44 | Emergency (ER) | payer MEDICAID ==
[~2020-02-21] VITALS: Ht 157.5 cm; Wt 92.0 kg
[2020-02-21] MEDS ORDERED: SUMATRIPTAN SUCCINATE 25MG TABLET PO ONE (11:15)
[2020-02-21 11:35] VITALS: BP 147/98
== END 2020-02-21 11:45 | disposition home or self-care (01) ==
LOC: ER 11:05
DX: G43.909 Migraine, unspecified, not intractable, without status migrainosus (principal)
CPT/HCPCS: 99283

== ENCOUNTER 2020-03-03 08:35 | Inpatient (IN) | payer MEDICAID ==
[~2020-03-03] VITALS: Ht 157.5 cm; Wt 92.6 kg
[2020-03-03 09:28] LABS: BASOPHILS % 1.1 % (0.0-2.0); EOSINOPHILS % 3.7 % (0.0-5.0); HEMATOCRIT. 36.3 % (36.0-48.0); HEMOGLOBIN. 12.1 g/dL (12.0-16.0); LYMPHOCYTES % 33.5 % (20.0-50.0); MEAN CORPUSCULAR HEMOGLOBIN 30.3 pg (28.0-32.0); MEAN CORPUSCULAR VOLUME 90.3 fL (81.0-99.0); MEAN PLATELET VOLUME 8.7 fl (7.4-10.4); MONOCYTES % 6.5 % (2.0-8.0); NEUTROPHILS % 55.2 % (40.0-76.0); PLATELET 291 x1000/uL (130-400); RED BLOOD CELL COUNT 4.01 mill/uL (4.2-5.4); RED CELL DISTRIBUTION WIDTH 15.9 % (11.6-14.6)
[2020-03-03 09:35] LABS: CHLORIDE 111 mEq/L (98-107)
[2020-03-03] MEDS ORDERED: ASPIRIN 325MG EC TABLET PO ONE (10:00)
[2020-03-03] MEDS ORDERED: IPRATROPIUM/ALBUTEROL 0.5-3(2.5)MG/3ML NEB HHN PRN (14:45)
[2020-03-03] MEDS ORDERED: DIPHENHYDRAMINE 50MG/ML VIAL IV PRN (14:45)
[2020-03-03] MEDS ORDERED: ENOXAPARIN 40MG/0.4ML SYR SUBCUT SCH (14:45)
[2020-03-03] MEDS ORDERED: CLONIDINE 0.1MG TABLET PO PRN (14:45)
[2020-03-03] MEDS ORDERED: ACETAMINOPHEN 325MG TABLET PO PRN (14:45)
[2020-03-03] MEDS ORDERED: ONDANSETRON HCL 4MG/2ML INJ IV PRN (14:45)
[2020-03-03 15:00] LABS: PHOSPHORUS 2.5 mg/dL (2.5-4.9)
[2020-03-03 17:58] LABS: *AMPHETAMINES SCREEN URINE NEGATIVE (NEGATIVE); *BARBITURATES SCREEN URINE NEGATIVE (NEGATIVE); *BENZODIAZEPINES SCREEN URINE NEGATIVE (NEGATIVE); *COCAINE SCREEN URINE NEGATIVE (NEGATIVE); METHADONE URINE SCREEN NEGATIVE (NEGATIVE); OPIATES URINE SCREEN NEGATIVE (NEGATIVE)
[2020-03-03 17:59] LABS: CANNABINOID URINE SCREEN NEGATIVE (NEGATIVE); PHENCYCLIDINE URINE SCREEN NEGATIVE (NEGATIVE)
[2020-03-03] MEDS: ENOXAPARIN 30MG/0.3ML SYR SUBCUT SCH (18:42)
[2020-03-03 21:54] VITALS: BP 144/80
[2020-03-04] VITALS (7 sets, daily range): BP systolic 97–139; BP diastolic 56–93
[2020-03-04] MEDS: ENOXAPARIN 30MG/0.3ML SYR SUBCUT SCH ×2 (05:03→17:09)
[2020-03-04 06:41] LABS: CHLORIDE 112 mEq/L (98-107)
[2020-03-04 06:50] LABS: BASOPHILS % 0.7 % (0.0-2.0); EOSINOPHILS % 4.8 % (0.0-5.0); HEMATOCRIT. 33.2 % (36.0-48.0); HEMOGLOBIN. 11.3 g/dL (12.0-16.0); LYMPHOCYTES % 29.4 % (20.0-50.0); MEAN CORPUSCULAR HEMOGLOBIN 30.6 pg (28.0-32.0); MEAN CORPUSCULAR VOLUME 90.4 fL (81.0-99.0); MEAN PLATELET VOLUME 8.6 fl (7.4-10.4); MONOCYTES % 9.3 % (2.0-8.0); NEUTROPHILS % 55.8 % (40.0-76.0); PLATELET 284 x1000/uL (130-400); RED BLOOD CELL COUNT 3.68 mill/uL (4.2-5.4); RED CELL DISTRIBUTION WIDTH 16.2 % (11.6-14.6)
[2020-03-04 06:51] LABS: LDL CHOLESTEROL 132 mg/dL (5-100); TOTAL IRON BINDING CAPACITY 376 ug/dL (250-450)
[2020-03-04 06:53] LABS: HDL CHOLESTEROL 42 mg/dL (40-59)
[2020-03-04 07:20] LABS: VITAMIN B12 SERUM 774 pg/mL (211-911)
[2020-03-04] MEDS ORDERED: ATOR20TA PO (14:25)
[2020-03-04] MEDS ORDERED: ATORVASTATIN CALCIUM 20MG TABLET PO SCH (21:00)
== END 2020-03-04 19:57 | disposition home or self-care (01) | DRG 469 ==
LOC: ER 08:35 → ENRESERV 20:50 → 6WST 22:59 → 5WST 03-04 06:40
PROVIDERS: ADMIT Internal Medicine; ATTEND Emergency Medicine
DX: N17.9 Acute kidney failure, unspecified (principal); E87.8 Other disorders of electrolyte and fluid balance, not elsewhere classified; M94.0 Chondrocostal junction syndrome [Tietze]; E66.9 Obesity, unspecified; E78.5 Hyperlipidemia, unspecified; I10 Essential (primary) hypertension; J45.909 Unspecified asthma, uncomplicated; Z85.528 Personal history of other malignant neoplasm of kidney; Z88.2 Allergy status to sulfonamides; Z79.899 Other long term (current) drug therapy; Z90.5 Acquired absence of kidney; Z68.37 Body mass index [BMI] 37.0-37.9, adult
CPT/HCPCS: 36415; 71045; 80053; 80061; 80305; 82607; 83540; 83550; 83735; 83880; 84100; 84443; 84484; 85025; 93005; 93306; 93970; 99285; J1650

== ENCOUNTER 2020-03-20 13:35 | Emergency (ER) | payer MEDICAID ==
[~2020-03-20] VITALS: Ht 157.5 cm; Wt 94.0 kg
[~2020-03-20 13:35] MED LIST changes: +ATOR20TA PO
[2020-03-20] MEDS ORDERED: IBUPROFEN 600MG TABLET PO STA (14:13)
[2020-03-20 14:31] LABS: BASOPHILS % 1.9 % (0.0-2.0); EOSINOPHILS % 4.2 % (0.0-5.0); HEMATOCRIT. 34.3 % (36.0-48.0); HEMOGLOBIN. 11.7 g/dL (12.0-16.0); LYMPHOCYTES % 31.6 % (20.0-50.0); MEAN CORPUSCULAR HEMOGLOBIN 30.7 pg (28.0-32.0); MEAN CORPUSCULAR VOLUME 90.3 fL (81.0-99.0); MEAN PLATELET VOLUME 8.6 fl (7.4-10.4); MONOCYTES % 8.4 % (2.0-8.0); NEUTROPHILS % 53.9 % (40.0-76.0); PLATELET 323 x1000/uL (130-400); RED BLOOD CELL COUNT 3.81 mill/uL (4.2-5.4); RED CELL DISTRIBUTION WIDTH 16.5 % (11.6-14.6)
[2020-03-20 14:37] LABS: CHLORIDE 109 mEq/L (98-107)
[2020-03-20 15:40] VITALS: BP 112/88
== END 2020-03-20 16:22 | disposition home or self-care (01) ==
LOC: ER 14:21
DX: R07.89 Other chest pain (principal); I10 Essential (primary) hypertension; Z79.899 Other long term (current) drug therapy; Z85.528 Personal history of other malignant neoplasm of kidney; Z98.890 Other specified postprocedural states
CPT/HCPCS: 36415; 71045; 80053; 81025; 84484; 85025; 93005; 99285

== ENCOUNTER 2020-04-30 11:14 | Emergency (ER) | payer MEDICAID ==
[~2020-04-30] VITALS: Ht 157.5 cm; Wt 93.0 kg
[2020-04-30] MEDS ORDERED: ACETAMINOPHEN 325MG TABLET PO STA (12:31)
[2020-04-30 12:41] LABS: BASOPHILS % 0.8 % (0.0-2.0); EOSINOPHILS % 4.7 % (0.0-5.0); HEMATOCRIT. 34.3 % (36.0-48.0); HEMOGLOBIN. 11.4 g/dL (12.0-16.0); LYMPHOCYTES % 41.7 % (20.0-50.0); MEAN CORPUSCULAR HEMOGLOBIN 29.7 pg (28.0-32.0); MEAN CORPUSCULAR VOLUME 89.6 fL (81.0-99.0); MEAN PLATELET VOLUME 8.5 fl (7.4-10.4); MONOCYTES % 6.9 % (2.0-8.0); NEUTROPHILS % 45.9 % (40.0-76.0); PLATELET 328 x1000/uL (130-400); RED BLOOD CELL COUNT 3.83 mill/uL (4.2-5.4); RED CELL DISTRIBUTION WIDTH 15.6 % (11.6-14.6)
[2020-04-30 12:42] LABS: CHLORIDE 108 mEq/L (98-107)
[2020-04-30] MEDS ORDERED: KETOROLAC 15MG/ML VIAL IV ONE (12:45)
[2020-04-30 14:51] VITALS: BP 172/96
== END 2020-04-30 15:00 | disposition home or self-care (01) ==
LOC: ER 11:14
DX: R07.89 Other chest pain (principal); M25.512 Pain in left shoulder; I10 Essential (primary) hypertension; J45.909 Unspecified asthma, uncomplicated; Z79.899 Other long term (current) drug therapy
CPT/HCPCS: 36415; 71045; 80053; 84484; 85025; 93005; 96374; 99285; J1885

== ENCOUNTER 2020-06-23 10:23 | Emergency (ER) | payer MEDICAID ==
[~2020-06-23] VITALS: Ht 157.5 cm; Wt 93.0 kg
[2020-06-23] MEDS ORDERED: ACETAMINOPHEN 650MG/20.3ML UDC PO ONE (11:00)
[2020-06-23] MEDS ORDERED: LIDOCAINE 5% PATCH TOP SCH (11:00)
[2020-06-23 11:09] LABS: EOSINOPHILS % 4.4 % (0.0-5.0); HEMATOCRIT. 34.3 % (36.0-48.0); HEMOGLOBIN. 11.4 g/dL (12.0-16.0); LYMPHOCYTES % 38.2 % (20.0-50.0); MEAN CORPUSCULAR HEMOGLOBIN 29.3 pg (28.0-32.0); MEAN CORPUSCULAR VOLUME 88.4 fL (81.0-99.0); MEAN PLATELET VOLUME 8.6 fl (7.4-10.4); MONOCYTES % 8.1 % (2.0-8.0); NEUTROPHILS % 48.3 % (40.0-76.0); PLATELET 314 x1000/uL (130-400); RED BLOOD CELL COUNT 3.89 mill/uL (4.2-5.4); RED CELL DISTRIBUTION WIDTH 15.9 % (11.6-14.6)
[2020-06-23 11:18] LABS: CHLORIDE 106 mEq/L (98-107)
[2020-06-23 17:00] VITALS: BP 117/83
== END 2020-06-23 17:20 | disposition home or self-care (01) ==
LOC: ER 10:23
DX: R07.89 Other chest pain (principal); I10 Essential (primary) hypertension; Z85.528 Personal history of other malignant neoplasm of kidney; Z86.711 Personal history of pulmonary embolism; Z79.01 Long term (current) use of anticoagulants; Z90.5 Acquired absence of kidney
CPT/HCPCS: 36415; 71045; 80053; 81025; 83880; 84484; 85025; 93005; 99285

== ENCOUNTER 2021-06-01 11:41 | Emergency (ER) | payer MEDICAID ==
[~2021-06-01] VITALS: Ht 170.2 cm; Wt 93.0 kg
[2021-06-01 15:43] LABS: BASOPHILS % 0.7 % (0.0-2.0); EOSINOPHILS % 2.6 % (0.0-5.0); HEMATOCRIT. 36.1 % (36.0-48.0); HEMOGLOBIN. 12.1 g/dL (12.0-16.0); LYMPHOCYTES % 31.1 % (20.0-50.0); MEAN CORPUSCULAR HEMOGLOBIN 29.5 pg (28.0-32.0); MEAN PLATELET VOLUME 8.1 fl (7.4-10.4); MONOCYTES % 7.5 % (2.0-8.0); NEUTROPHILS % 58.1 % (40.0-76.0); PLATELET 338 x1000/uL (130-400); RED CELL DISTRIBUTION WIDTH 15.6 % (11.6-14.6)
[2021-06-01 15:51] LABS: HCG SCREEN NEGATIVE
[2021-06-01] MEDS ORDERED: HYDROCODONE/ACETAMINOPHEN 5/325MG TABLET PO ONE ×2 (16:30→22:45)
[2021-06-01] MEDS ORDERED: SODIUM CHLORIDE 0.9% 500 ML IV ONE (16:30)
[2021-06-01 16:34] LABS: CLARITY URINE CLEAR (CLEAR); COLOR URINE YELLOW (YELLOW); KETONES URINE NEGATIVE (NEGATIVE); LEUKOCYTE ESTERASE URINE NEGATIVE (NEGATIVE); NITRITE URINE NEGATIVE (NEGATIVE); OCCULT BLOOD URINE NEGATIVE (NEGATIVE); PROTEIN URINE NEGATIVE (NEGATIVE); SPECIFIC GRAVITY URINE 1.019 (1.005-1.030); UROBILINOGEN URINE 0.2 E.U./dL (0.2-1.0)
[2021-06-01 23:16] VITALS: BP 162/81
== END 2021-06-01 23:18 | disposition home or self-care (01) ==
LOC: ER 11:41
DX: R10.9 Unspecified abdominal pain (principal); I12.9 Hypertensive chronic kidney disease with stage 1 through stage 4 chronic kidney disease, or unspecified chronic kidney disease; N18.9 Chronic kidney disease, unspecified; J45.909 Unspecified asthma, uncomplicated; Z90.5 Acquired absence of kidney; Z85.53 Personal history of malignant neoplasm of renal pelvis; Z92.21 Personal history of antineoplastic chemotherapy; Z98.51 Tubal ligation status; Z86.711 Personal history of pulmonary embolism
CPT/HCPCS: 36415; 74176; 76770; 80048; 81003; 84703; 85025; 96360; 99285; J7040

== ENCOUNTER 2021-08-24 09:20 | Inpatient (IN) | payer MEDICAID ==
[~2021-08-24] VITALS: Ht 157.5 cm; Wt 93.4 kg
[2021-08-24] MEDS ORDERED: MORPHINE SULFATE 4 MG/ML CPJ (NOT FOR IM USE) IV STA (09:38)
[2021-08-24] MEDS ORDERED: ONDANSETRON HCL 4MG/2ML INJ IV STA (09:38)
[2021-08-24] MEDS ORDERED: NITROGLYCERIN OINT 1GM/INCH UDPKT TD ONE (09:45)
[2021-08-24] MEDS ORDERED: ASPIRIN 81MG TABLET PO ONE (09:45)
[2021-08-24 10:29] LABS: BASOPHILS % 1.1 % (0.0-2.0); EOSINOPHILS % 3.3 % (0.0-5.0); HEMATOCRIT. 37.7 % (36.0-48.0); HEMOGLOBIN. 12.3 g/dL (12.0-16.0); LYMPHOCYTES % 27.5 % (20.0-50.0); MEAN CORPUSCULAR HEMOGLOBIN 29.3 pg (28.0-32.0); MEAN CORPUSCULAR VOLUME 89.8 fL (81.0-99.0); MEAN PLATELET VOLUME 8.8 fl (7.4-10.4); MONOCYTES % 7.2 % (2.0-8.0); NEUTROPHILS % 60.9 % (40.0-76.0); PLATELET 310 x1000/uL (130-400); RED CELL DISTRIBUTION WIDTH 17.4 % (11.6-14.6)
[2021-08-24 10:30] LABS: CHLORIDE 110 mEq/L (98-107)
[2021-08-24 10:34] LABS: HCG SCREEN NEGATIVE
[2021-08-24] MEDS ORDERED: ACETAMINOPHEN 325MG TABLET PO PRN (12:00)
[2021-08-24] MEDS ORDERED: IPRATROPIUM/ALBUTEROL 0.5-3(2.5)MG/3ML NEB HHN PRN (12:00)
[2021-08-24] MEDS ORDERED: DIPHENHYDRAMINE 50MG/ML VIAL IV PRN (12:00)
[2021-08-24] MEDS ORDERED: CLONIDINE 0.1MG TABLET PO PRN (12:00)
[2021-08-24] MEDS ORDERED: MORPHINE SULFATE 2 MG/ML CPJ (NOT FOR IM USE) IV PRN (12:00)
[2021-08-24] MEDS ORDERED: NALOXONE HCL 0.4MG/ML VIAL IV PRN (12:45)
[2021-08-24] MEDS: APIXABAN 5 MG TABLET PO SCH (17:00)
[2021-08-24] MEDS: ONDANSETRON HCL 4MG/2ML INJ IV PRN (17:23)
[2021-08-24] MEDS ORDERED: ALBUTEROL 6.7GM HFA INHALER INH SCH (20:00)
[2021-08-24] MEDS ORDERED: ATORVASTATIN CALCIUM 20MG TABLET PO SCH (21:00)
[2021-08-24 23:30] VITALS: BP 157/113
[2021-08-25 02:00] VITALS: BP 124/65
[2021-08-25] MEDS: ONDANSETRON HCL 4MG/2ML INJ IV PRN (02:21)
[2021-08-25 04:00] VITALS: BP 131/85
[2021-08-25 06:36] LABS: CHLORIDE 109 mEq/L (98-107)
[2021-08-25 06:45] LABS: LDL CHOLESTEROL 103 mg/dL (5-100)
[2021-08-25 06:46] LABS: BASOPHILS % 0.3 % (0.0-2.0); EOSINOPHILS % 0.4 % (0.0-5.0); HEMATOCRIT. 34.5 % (36.0-48.0); HEMOGLOBIN. 11.6 g/dL (12.0-16.0); LYMPHOCYTES % 14.2 % (20.0-50.0); MEAN CORPUSCULAR HEMOGLOBIN 30.5 pg (28.0-32.0); MEAN CORPUSCULAR VOLUME 91.2 fL (81.0-99.0); MEAN PLATELET VOLUME 8.7 fl (7.4-10.4); MONOCYTES % 9.7 % (2.0-8.0); NEUTROPHILS % 75.4 % (40.0-76.0); PLATELET 303 x1000/uL (130-400); RED BLOOD CELL COUNT 3.79 mill/uL (4.2-5.4); RED CELL DISTRIBUTION WIDTH 17.2 % (11.6-14.6)
[2021-08-25 06:49] LABS: HDL CHOLESTEROL 58 mg/dL (40-59)
[2021-08-25 08:00] VITALS: BP 131/78
[2021-08-25] MEDS ORDERED: REGADENOSON 0.4 MG/5 ML IV NR (08:30)
[2021-08-25] MEDS ORDERED: HYDROCHLOROTHIAZIDE 12.5MG CAPSULE PO SCH (09:00)
[2021-08-25] MEDS ORDERED: AMLODIPINE 10MG TABLET PO SCH (09:00)
[2021-08-25] MEDS ORDERED: REGADENOSON 0.4 MG/5 ML IV ONE (09:13)
[2021-08-25 12:00] VITALS: BP 148/72
[2021-08-25] MEDS: APIXABAN 5 MG TABLET PO SCH (12:24)
[2021-08-25 14:00] VITALS: BP 155/93
[2021-08-25 14:36] VITALS: BP 155/93
== END 2021-08-25 16:55 | disposition home or self-care (01) | DRG 203 ==
LOC: ER 09:20 → EDBEDREQ 09:32 → EDBEDREQTM 09:40 → EDBEDREQ 09:40 → MICUSO 10:39 → EDBEDREQTM 10:41 → EDBEDREQ 10:41 → 5EST 21:58
PROVIDERS: ADMIT Internal Medicine; ATTEND Internal Medicine
DX: M94.0 Chondrocostal junction syndrome [Tietze] (principal); N17.9 Acute kidney failure, unspecified; I25.10 Atherosclerotic heart disease of native coronary artery without angina pectoris; I11.9 Hypertensive heart disease without heart failure; E66.9 Obesity, unspecified; E78.5 Hyperlipidemia, unspecified; R79.89 Other specified abnormal findings of blood chemistry; Z20.822 Contact with and (suspected) exposure to COVID-19; J45.909 Unspecified asthma, uncomplicated; Z82.49 Family history of ischemic heart disease and other diseases of the circulatory system; Z85.528 Personal history of other malignant neoplasm of kidney; Z86.711 Personal history of pulmonary embolism; Z90.5 Acquired absence of kidney; Z98.51 Tubal ligation status; Z79.899 Other long term (current) drug therapy; Z79.01 Long term (current) use of anticoagulants; Z80.41 Family history of malignant neoplasm of ovary; Z68.37 Body mass index [BMI] 37.0-37.9, adult
CPT/HCPCS: 36415; 71045; 78452; 80048; 80053; 80061; 83735; 83880; 84443; 84484; 84703; 85025; 85379; 87426; 93005; 93017; 93306; 93970; 99291; A9500; J1200; J2270; J2405; J2785

== ENCOUNTER 2022-01-22 12:34 | Emergency (ER) | payer MEDICAID ==
[~2022-01-22] VITALS: Ht 157.5 cm; Wt 97.0 kg
[2022-01-22 14:46] LABS: BASOPHILS % 0.8 % (0.0-2.0); EOSINOPHILS % 4.7 % (0.0-5.0); HEMOGLOBIN. 10.1 g/dL (12.0-16.0); LYMPHOCYTES % 28.4 % (20.0-50.0); MEAN CORPUSCULAR VOLUME 86.1 fL (81.0-99.0); MEAN PLATELET VOLUME 8.6 fl (7.4-10.4); MONOCYTES % 6.7 % (2.0-8.0); NEUTROPHILS % 59.4 % (40.0-76.0); PLATELET 342 x1000/uL (130-400); RED CELL DISTRIBUTION WIDTH 16.8 % (11.6-14.6)
[2022-01-22 14:52] LABS: CHLORIDE 110 mEq/L (98-107)
[2022-01-22] MEDS ORDERED: IBUPROFEN 600MG TABLET PO ONE (17:45)
[2022-01-22 17:56] VITALS: BP 150/77
== END 2022-01-22 19:45 | disposition home or self-care (01) ==
LOC: ER 12:34
DX: R07.89 Other chest pain (principal); J45.909 Unspecified asthma, uncomplicated; I10 Essential (primary) hypertension; Z85.6 Personal history of leukemia; Z98.51 Tubal ligation status; Z79.899 Other long term (current) drug therapy
CPT/HCPCS: 36415; 71045; 80053; 83880; 84484; 85025; 93005; 99285

== ENCOUNTER 2022-04-21 09:21 | Emergency (ER) | payer MEDICAID ==
[~2022-04-21] VITALS: Ht 157.5 cm; Wt 98.0 kg
[2022-04-21 09:24] VITALS: BP 178/82
[2022-04-21] MEDS ORDERED: ASPIRIN 81MG TABLET PO ONE (10:00)
[2022-04-21] MEDS ORDERED: NITROGLYCERIN 0.4MG TABLET SL SL PRN (10:00)
[2022-04-21 11:01] LABS: BASOPHILS % 0.8 % (0.0-2.0); EOSINOPHILS % 4.8 % (0.0-5.0); HEMATOCRIT. 32.5 % (36.0-48.0); HEMOGLOBIN. 10.2 g/dL (12.0-16.0); LYMPHOCYTES % 32.1 % (20.0-50.0); MEAN CORPUSCULAR HEMOGLOBIN 26.2 pg (28.0-32.0); MEAN PLATELET VOLUME 9.2 fl (7.4-10.4); MONOCYTES % 8.4 % (2.0-8.0); NEUTROPHILS % 53.9 % (40.0-76.0); PLATELET 309 x1000/uL (130-400); RED BLOOD CELL COUNT 3.91 mill/uL (4.2-5.4); RED CELL DISTRIBUTION WIDTH 17.3 % (11.6-14.6)
[2022-04-21 11:11] LABS: CHLORIDE 110 mEq/L (98-107)
[2022-04-21 12:06] LABS: HCG SCREEN NEGATIVE
== END 2022-04-21 15:07 | disposition home or self-care (01) ==
LOC: ER 09:21
DX: R07.89 Other chest pain (principal); R05.9 Cough, unspecified; J45.909 Unspecified asthma, uncomplicated; Z85.6 Personal history of leukemia; I10 Essential (primary) hypertension; Z98.51 Tubal ligation status; Z98.890 Other specified postprocedural states; Z79.899 Other long term (current) drug therapy
CPT/HCPCS: 36415; 71045; 80053; 81025; 83605; 83690; 83880; 84484; 84703; 85025; 85379; 93005; 99285; Z7610

== ENCOUNTER → 2022-05-25 | Emergency (ER) | payer MEDICAID ==
[~2022-05-25] VITALS: Ht 157.5 cm; Wt 100.0 kg
[~2022-05-25] MED LIST changes: +HYDROCODONE/ACETAMINOPHEN 5/325MG TABLET PO ONE
[2022-05-25 19:13] LABS: CHLORIDE 112 mEq/L (98-107)
[2022-05-25 19:23] LABS: B-HCG QUANTITATIVE < 1 mIU/mL (<3)
[2022-05-25 19:29] LABS: BASOPHILS % 0.9 % (0.0-2.0); HEMATOCRIT. 32.7 % (36.0-48.0); HEMOGLOBIN. 10.4 g/dL (12.0-16.0); LYMPHOCYTES % 26.4 % (20.0-50.0); MEAN CORPUSCULAR HEMOGLOBIN 26.6 pg (28.0-32.0); MEAN CORPUSCULAR VOLUME 84.1 fL (81.0-99.0); MEAN PLATELET VOLUME 8.8 fl (7.4-10.4); MONOCYTES % 7.1 % (2.0-8.0); NEUTROPHILS % 62.6 % (40.0-76.0); PLATELET 311 x1000/uL (130-400); RED BLOOD CELL COUNT 3.89 mill/uL (4.2-5.4); RED CELL DISTRIBUTION WIDTH 18.8 % (11.6-14.6)
[2022-05-26 00:03] VITALS: BP 132/94
== END | disposition home or self-care (01) ==
LOC: ER 17:07
DX: N93.9 Abnormal uterine and vaginal bleeding, unspecified (principal); D25.9 Leiomyoma of uterus, unspecified; J45.909 Unspecified asthma, uncomplicated; I10 Essential (primary) hypertension; Z86.711 Personal history of pulmonary embolism; Z79.01 Long term (current) use of anticoagulants; Z85.528 Personal history of other malignant neoplasm of kidney; Z90.5 Acquired absence of kidney
CPT/HCPCS: 36415; 74176; 76830; 76856; 80053; 84702; 85025; 86850; 86900; 93005; 99285

== ENCOUNTER 2022-07-01 10:31 | Emergency (ER) | payer MEDICAID ==
[~2022-07-01] VITALS: Ht 162.6 cm; Wt 100.0 kg
[~2022-07-01 10:31] MED LIST changes: +ALBU6.7H3 INH; -ALBU6.7H9 INH; -HYDROCODONE/ACETAMINOPHEN 5/325MG TABLET PO ONE
[2022-07-01 10:33] VITALS: BP 154/80
[2022-07-01 17:53] LABS: CHLORIDE 108 mEq/L (98-107)
[2022-07-01 17:56] LABS: PROTHROMBIN TIME 10.9 sec (9.6-11.0)
[2022-07-01 17:59] LABS: BASOPHILS % 0.6 % (0.0-2.0); EOSINOPHILS % 3.8 % (0.0-5.0); HEMATOCRIT. 33.4 % (36.0-48.0); HEMOGLOBIN. 10.8 g/dL (12.0-16.0); LYMPHOCYTES % 30.9 % (20.0-50.0); MEAN CORPUSCULAR HEMOGLOBIN 27.9 pg (28.0-32.0); MEAN PLATELET VOLUME 8.3 fl (7.4-10.4); MONOCYTES % 7.1 % (2.0-8.0); NEUTROPHILS % 57.6 % (40.0-76.0); PLATELET 360 x1000/uL (130-400); RED BLOOD CELL COUNT 3.89 mill/uL (4.2-5.4)
[2022-07-01 18:02] LABS: HCG SCREEN NEGATIVE
[2022-07-01] MEDS ORDERED: IBUPROFEN 600MG TABLET PO ONE (19:30)
== END 2022-07-01 22:30 | disposition home or self-care (01) ==
LOC: ER 10:31
DX: R07.2 Precordial pain (principal); C64.1 Malignant neoplasm of right kidney, except renal pelvis; I10 Essential (primary) hypertension; Z90.5 Acquired absence of kidney; Z86.711 Personal history of pulmonary embolism; Z79.01 Long term (current) use of anticoagulants
CPT/HCPCS: 36415; 71045; 80053; 84484; 84703; 85025; 99284

== ENCOUNTER 2023-04-18 10:59 | Emergency (ER) | payer MEDICAID ==
[~2023-04-18] VITALS: Ht 162.6 cm; Wt 100.0 kg
[2023-04-18 12:06] VITALS: O2SAT 98
[2023-04-18] MEDS ORDERED: ACETAMINOPHEN 325MG TABLET PO STA (13:23)
[2023-04-18 14:12] LABS: CLARITY URINE CLOUDY (CLEAR); COLOR URINE YELLOW (YELLOW); KETONES URINE TRACE (NEGATIVE); LEUKOCYTE ESTERASE URINE NEGATIVE (NEGATIVE); NITRITE URINE NEGATIVE (NEGATIVE); OCCULT BLOOD URINE NEGATIVE (NEGATIVE); PH URINE 5.5 (4.5-8.0); PROTEIN URINE 1+ (NEGATIVE); SPECIFIC GRAVITY URINE 1.027 (1.005-1.030)
[2023-04-18 14:27] LABS: BASOPHILS % 0.8 % (0.0-2.0); EOSINOPHILS % 5.1 % (0.0-5.0); HEMATOCRIT. 37.6 % (36.0-48.0); HEMOGLOBIN. 12.7 g/dL (12.0-16.0); LYMPHOCYTES % 40.8 % (20.0-50.0); MEAN CORPUSCULAR HEMOGLOBIN 30.6 pg (28.0-32.0); MEAN CORPUSCULAR VOLUME 90.4 fL (81.0-99.0); MEAN PLATELET VOLUME 8.4 fl (7.4-10.4); MONOCYTES % 7.5 % (2.0-8.0); NEUTROPHILS % 45.8 % (40.0-76.0); PLATELET 325 x1000/uL (130-400); RED BLOOD CELL COUNT 4.16 mill/uL (4.2-5.4); RED CELL DISTRIBUTION WIDTH 18.2 % (11.6-14.6)
[2023-04-18 15:19] LABS: CHLORIDE 112 mEq/L (98-107)
[2023-04-18 15:20] LABS: PROTHROMBIN TIME 10.8 sec (9.6-11.0)
[2023-04-18 17:00] VITALS: BP 158/80; PULSE 70; RESP 18; TEMP 97.9
== END 2023-04-18 17:00 | disposition home or self-care (01) ==
LOC: ER 10:59
DX: I10 Essential (primary) hypertension (principal); N17.9 Acute kidney failure, unspecified
CPT/HCPCS: 36415; 71045; 80053; 81003; 83880; 84484; 85025; 93005; 99285

== ENCOUNTER 2023-08-23 17:06 | Emergency (ER) | payer MEDICAID ==
[~2023-08-23] VITALS: Ht 167.6 cm; Wt 100.0 kg
[2023-08-23 17:25] VITALS: O2SAT 100
[2023-08-23] MEDS ORDERED: ASPIRIN 81MG TABLET PO ONE (19:15)
[2023-08-23 19:59] LABS: BASOPHILS % 0.8 % (0.0-2.0); EOSINOPHILS % 5.8 % (0.0-5.0); HEMATOCRIT. 35.8 % (36.0-48.0); HEMOGLOBIN. 11.8 g/dL (12.0-16.0); LYMPHOCYTES % 38.6 % (20.0-50.0); MEAN CORPUSCULAR HEMOGLOBIN 30.5 pg (28.0-32.0); MEAN CORPUSCULAR VOLUME 92.7 fL (81.0-99.0); MEAN PLATELET VOLUME 8.8 fl (7.4-10.4); MONOCYTES % 8.4 % (2.0-8.0); NEUTROPHILS % 46.4 % (40.0-76.0); PLATELET 298 x1000/uL (130-400); RED BLOOD CELL COUNT 3.86 mill/uL (4.2-5.4); RED CELL DISTRIBUTION WIDTH 16.2 % (11.6-14.6); WHITE BLOOD COUNT 6.1 x1000/uL (4.5-11.0)
[2023-08-23 20:09] LABS: CHLORIDE 107 mEq/L (98-107); INDEX HEMOLYSI 2 (1-3); INDEX ICTERIC 1 (1-4); INDEX LIPEMIC 1 (1-3); POTASSIUM 3.7 mEq/L (3.5-5.1); SODIUM 140 mEq/L (136-145)
[2023-08-23 20:18] LABS: HCG SCREEN NEGATIVE
[2023-08-23 20:19] LABS: ALANINE AMINOTRANSFERASE 21 IU/L (13-61); ALBUMIN 3.5 g/dL (3.4-5.0); ASPARTATE AMINOTRANSFERASE 15 IU/L (15-37); BILIRUBIN TOTAL 0.5 mg/dL (0.1-1.0); CALCIUM 8.7 mg/dL (8.5-10.1); CARBON DIOXIDE 28 mEq/L (21-32); CREATININE 1.5 mg/dL (0.6-1.3); GLUCOSE 83 mg/dL (70-105); NT PRO B-TYPE NATRIURETIC PEP 159 pg/mL (5-125); PROTEIN TOTAL 7.9 g/dL (6.0-8.3); TROPONIN I HIGH SENSITIVITY 7 ng/L (<54); UREA NITROGEN BLOOD 16 mg/dL (7-21)
[2023-08-23 22:00] LABS: TROPONIN I HIGH SENSITIVITY 6 ng/L (<54)
[2023-08-23] MEDS ORDERED: IOHEXOL-350 100 ML BOTTLE ONE (22:06)
[2023-08-23 23:40] LABS: TROPONIN I HIGH SENSITIVITY 6 ng/L (<54)
[2023-08-24 03:08] VITALS: BP 160/80; PULSE 80; RESP 16; TEMP 98
[2023-08-24] MEDS ORDERED: IOHEXOL-350 100 ML BOTTLE ONE (06:44)
== END 2023-08-24 03:37 | disposition home or self-care (01) ==
LOC: ER 17:06
DX: R07.89 Other chest pain (principal); J45.909 Unspecified asthma, uncomplicated; I10 Essential (primary) hypertension; Z85.9 Personal history of malignant neoplasm, unspecified; Z98.51 Tubal ligation status; Z20.822 Contact with and (suspected) exposure to COVID-19
CPT/HCPCS: 80053; 81025; 84703; 83880; 83690; 85025; 85379; 86850; 86900; 86901; 84484; 87804 ×2; 36415; 71045; 93005; 99285; 87426; 71275; Q9967 ×2; Z7610; C9803

== ENCOUNTER 2023-08-31 03:25 | Inpatient (IN) | payer MEDICAID ==
[~2023-08-31] VITALS: Ht 312.4 cm; Wt 93.0 kg
[2023-08-31 04:21] LABS: BASOPHILS % 0.5 % (0.0-2.0); EOSINOPHILS % 3.4 % (0.0-5.0); HEMATOCRIT. 36.8 % (36.0-48.0); HEMOGLOBIN. 12.4 g/dL (12.0-16.0); LYMPHOCYTES % 22.1 % (20.0-50.0); MEAN CORPUSCULAR HEMOGLOBIN 30.6 pg (28.0-32.0); MEAN CORPUSCULAR HGB CONC 33.6 g/dL (31.0-37.0); MEAN CORPUSCULAR VOLUME 91.2 fL (81.0-99.0); MEAN PLATELET VOLUME 9.1 fl (7.4-10.4); MONOCYTES % 7.4 % (2.0-8.0); NEUTROPHILS % 66.6 % (40.0-76.0); PLATELET 293 x1000/uL (130-400); RED BLOOD CELL COUNT 4.04 mill/uL (4.2-5.4); RED CELL DISTRIBUTION WIDTH 15.6 % (11.6-14.6); WHITE BLOOD COUNT 7.8 x1000/uL (4.5-11.0)
[2023-08-31 04:47] LABS: ALANINE AMINOTRANSFERASE 13 IU/L (10-49); ALBUMIN 4.2 g/dL (3.2-4.8); ASPARTATE AMINOTRANSFERASE 16 IU/L (<34); BILIRUBIN TOTAL 0.6 mg/dL (0.1-1.0); CALCIUM 9.5 mg/dL (8.7-10.4); CARBON DIOXIDE 25 mEq/L (21-32); CHLORIDE 110 mEq/L (98-107); CREATININE 1.3 mg/dL (0.6-1.0); GLUCOSE 100 mg/dL (70-105); POTASSIUM 3.7 mEq/L (3.5-5.1); PROTEIN TOTAL 7.1 g/dL (6.0-8.3); SODIUM 142 mEq/L (136-145); UREA NITROGEN BLOOD 12 mg/dL (9-23)
[2023-08-31 04:52] LABS: TROPONIN I HIGH SENSITIVITY < 4 ng/L (3.0-34)
[2023-08-31 05:22] LABS: CLARITY URINE CLOUDY (CLEAR); COLOR URINE YELLOW (YELLOW); GLUCOSE URINE NEGATIVE (NEGATIVE); KETONES URINE NEGATIVE (NEGATIVE); LEUKOCYTE ESTERASE URINE NEGATIVE (NEGATIVE); NITRITE URINE NEGATIVE (NEGATIVE); OCCULT BLOOD URINE NEGATIVE (NEGATIVE); PROTEIN URINE 1+ (NEGATIVE); SPECIFIC GRAVITY URINE 1.014 (1.005-1.030)
[2023-08-31 05:27] LABS: BACTERIA URINE NONE SEEN; RBC URINE NONE SEEN /hpf (0-2); SQUAMOUS EPITHELIAL CELL URINE 1+ /lpf (RARE/1+); YEAST URINE NONE SEEN
[2023-08-31] MEDS ORDERED: CEFTRIAXONE 1GM PREMIX 50 ML IV ONE (07:15)
[2023-08-31] MEDS ORDERED: METRONIDAZOLE 500 MG PREMIX 100 ML IV ONE (07:15)
[2023-08-31] MEDS ORDERED: MORPHINE SULFATE 4 MG/ML CPJ (NOT FOR IM USE) IV ONE (10:45)
[2023-08-31] MEDS ORDERED: ONDANSETRON HCL 4MG/2ML INJ IV PRN (11:00)
[2023-08-31] MEDS ORDERED: ACETAMINOPHEN 325MG TABLET PO PRN ×2 (11:00)
[2023-08-31] MEDS ORDERED: LORAZEPAM 0.5MG TABLET PO PRN (11:00)
[2023-08-31] MEDS ORDERED: HYDROCODONE/ACETAMINOPHEN 5/325MG TABLET PO PRN (11:00)
[2023-08-31] MEDS ORDERED: IPRATROPIUM/ALBUTEROL 0.5-3(2.5)MG/3ML NEB HHN PRN (11:00)
[2023-08-31] MEDS ORDERED: CLONIDINE 0.1MG TABLET PO PRN (11:00)
[2023-08-31] MEDS ORDERED: MORPHINE SULFATE 4 MG/ML CPJ (NOT FOR IM USE) IV NR (11:15)
[2023-08-31] MEDS ORDERED: NALOXONE HCL 0.4MG/ML VIAL IV PRN (11:15)
[2023-08-31] MEDS: SODIUM CHLORIDE 0.9% 1,000 ML IV SCH ×2 (11:24→21:00)
[2023-08-31] MEDS ORDERED: PIPERACILLIN/TAZ 3.375G PREMIX 50 ML IV SCH (11:30)
[2023-08-31 16:00] VITALS: BP 156/64; PULSE 75; RESP 20; TEMP 97.2
[2023-08-31 16:45] VITALS: BP 156/64; PULSE 75; RESP 20; TEMP 97.2
[2023-08-31 20:00] VITALS: BP 99/46; PULSE 72; RESP 18; TEMP 99.5
[2023-08-31] MEDS: PIPERACILLIN/TAZOBACTAM 3.375 G in DEXTROSE 5% WATER 50 ML IV SCH (22:30)
[2023-09-01] VITALS: BP 132/66; PULSE 68; RESP 18; TEMP 98.3
[2023-09-01 04:00] VITALS: BP 132/78; PULSE 68; RESP 18; TEMP 97.9
[2023-09-01] MEDS: PIPERACILLIN/TAZOBACTAM 3.375 G in DEXTROSE 5% WATER 50 ML IV SCH ×2 (05:32→14:22)
[2023-09-01] MEDS ORDERED: PIPERACILLIN/TAZOBACTAM 3.375 G in DEXTROSE 5% WATER 50 ML IV SCH (06:00)
[2023-09-01 07:51] LABS: BASOPHILS % 0.4 % (0.0-2.0); EOSINOPHILS % 3.8 % (0.0-5.0); HEMATOCRIT. 34.5 % (36.0-48.0); HEMOGLOBIN. 11.5 g/dL (12.0-16.0); LYMPHOCYTES % 24.9 % (20.0-50.0); MEAN CORPUSCULAR HEMOGLOBIN 31.1 pg (28.0-32.0); MEAN CORPUSCULAR HGB CONC 33.4 g/dL (31.0-37.0); MEAN CORPUSCULAR VOLUME 93.2 fL (81.0-99.0); MEAN PLATELET VOLUME 9.3 fl (7.4-10.4); MONOCYTES % 8.4 % (2.0-8.0); NEUTROPHILS % 62.5 % (40.0-76.0); PLATELET 269 x1000/uL (130-400); RED CELL DISTRIBUTION WIDTH 15.8 % (11.6-14.6); WHITE BLOOD COUNT 6.3 x1000/uL (4.5-11.0)
[2023-09-01 08:00] VITALS: BP 133/62; PULSE 61; RESP 16; TEMP 97.6
[2023-09-01 08:18] LABS: ALANINE AMINOTRANSFERASE 9 IU/L (10-49); ALBUMIN 3.9 g/dL (3.2-4.8); ASPARTATE AMINOTRANSFERASE 12 IU/L (<34); BILIRUBIN TOTAL 0.8 mg/dL (0.1-1.0); CALCIUM 9.2 mg/dL (8.7-10.4); CARBON DIOXIDE 26 mEq/L (21-32); CHLORIDE 108 mEq/L (98-107); CREATININE 1.3 mg/dL (0.6-1.0); GLUCOSE 82 mg/dL (70-105); IRON 40 ug/dL (50-170); POTASSIUM 3.7 mEq/L (3.5-5.1); PROTEIN TOTAL 6.6 g/dL (6.0-8.3); SODIUM 142 mEq/L (136-145); TOTAL IRON BINDING CAPACITY 445 ug/dl (250-425); UREA NITROGEN BLOOD 10 mg/dL (9-23)
[2023-09-01] MEDS ORDERED: LEVO-65 MT (11:18)
[2023-09-01] MEDS ORDERED: METR-167 MT (11:18)
[2023-09-01 12:00] VITALS: BP 156/101; PULSE 77; RESP 16; TEMP 97.7
[2023-09-01 14:30] VITALS: RESP 16
[2023-09-01 16:04] VITALS: BP 147/91; PULSE 77; TEMP 77; O2SAT 95
== END 2023-09-01 19:00 | disposition home or self-care (01) | DRG 244 ==
LOC: ER 03:25 → EDBEDREQTM 08:21 → EDBEDREQ 08:21 → 6WST 08:23
PROVIDERS: ADMIT Internal Medicine; ATTEND Internal Medicine
DX: K57.20 Diverticulitis of large intestine with perforation and abscess without bleeding (principal); E66.9 Obesity, unspecified; E78.5 Hyperlipidemia, unspecified; I10 Essential (primary) hypertension; I25.10 Atherosclerotic heart disease of native coronary artery without angina pectoris; J45.909 Unspecified asthma, uncomplicated; Z90.5 Acquired absence of kidney; Z98.51 Tubal ligation status; Z86.711 Personal history of pulmonary embolism; Z79.899 Other long term (current) drug therapy; Z85.528 Personal history of other malignant neoplasm of kidney
CPT/HCPCS: 36415; 74176; 80053; 81003; 82728; 83540; 83550; 84484; 85025; 93005; 99291; J0696; J2270; J2543; J3490; J7060

== ENCOUNTER 2023-10-26 09:55 | Emergency (ER) | payer MEDICAID ==
[~2023-10-26] VITALS: Ht 167.6 cm; Wt 100.0 kg
[~2023-10-26 09:55] MED LIST changes: +ALBU6.7H15 INH; -ALBU6.7H3 INH; +P20 MT
[2023-10-26 10:19] VITALS: O2SAT 99
[2023-10-26 11:22] LABS: BASOPHILS % 0.7 % (0.0-2.0); EOSINOPHILS % 3.6 % (0.0-5.0); HEMATOCRIT. 38.8 % (36.0-48.0); HEMOGLOBIN. 12.8 g/dL (12.0-16.0); LYMPHOCYTES % 34.9 % (20.0-50.0); MEAN CORPUSCULAR HGB CONC 32.9 g/dL (31.0-37.0); MEAN CORPUSCULAR VOLUME 91.4 fL (81.0-99.0); MEAN PLATELET VOLUME 8.3 fl (7.4-10.4); MONOCYTES % 8.6 % (2.0-8.0); NEUTROPHILS % 52.2 % (40.0-76.0); PLATELET 327 x1000/uL (130-400); RED BLOOD CELL COUNT 4.25 mill/uL (4.2-5.4); RED CELL DISTRIBUTION WIDTH 15.8 % (11.6-14.6); WHITE BLOOD COUNT 4.5 x1000/uL (4.5-11.0)
[2023-10-26 11:24] LABS: CLARITY URINE CLEAR (CLEAR); COLOR URINE YELLOW (YELLOW); GLUCOSE URINE NEGATIVE (NEGATIVE); KETONES URINE NEGATIVE (NEGATIVE); LEUKOCYTE ESTERASE URINE NEGATIVE (NEGATIVE); NITRITE URINE NEGATIVE (NEGATIVE); OCCULT BLOOD URINE NEGATIVE (NEGATIVE); PH URINE 6.5 (4.5-8.0); PROTEIN URINE 1+ (NEGATIVE); SPECIFIC GRAVITY URINE 1.022 (1.005-1.030); UROBILINOGEN URINE 0.2 E.U./dL (0.2-1.0)
[2023-10-26 11:37] LABS: SQUAMOUS EPITHELIAL CELL URINE 3+ /lpf (RARE/1+)
[2023-10-26 11:38] LABS: MUCUS URINE TRACE /lpf (< = 2+)
[2023-10-26 11:39] LABS: BACTERIA URINE 2+; RBC URINE 0-2 /hpf (0-2); WBC URINE 0-2 /hpf (0-2)
[2023-10-26 11:39] LABS: ALANINE AMINOTRANSFERASE 19 IU/L (10-49); ALBUMIN 4.1 g/dL (3.2-4.8); ASPARTATE AMINOTRANSFERASE 18 IU/L (<34); BILIRUBIN TOTAL 0.3 mg/dL (0.1-1.0); CALCIUM 9.6 mg/dL (8.7-10.4); CARBON DIOXIDE 28 mEq/L (21-32); CHLORIDE 108 mEq/L (98-107); CREATININE 1.3 mg/dL (0.6-1.0); GLUCOSE 81 mg/dL (70-105); PROTEIN TOTAL 7.3 g/dL (6.0-8.3); SODIUM 141 mEq/L (136-145); UREA NITROGEN BLOOD 14 mg/dL (9-23)
[2023-10-26] MEDS ORDERED: ACET325T52 MT (12:19)
[2023-10-26] MEDS ORDERED: ACETAMINOPHEN 325MG TABLET PO ONE (12:30)
[2023-10-26 13:29] VITALS: BP 177/73; PULSE 69; RESP 16; TEMP 97.8
== END 2023-10-26 13:30 | disposition home or self-care (01) ==
LOC: ER 09:55
DX: M54.50 Low back pain, unspecified (principal); I10 Essential (primary) hypertension; J45.909 Unspecified asthma, uncomplicated; Z98.51 Tubal ligation status; Z98.890 Other specified postprocedural states
CPT/HCPCS: 36415; 80053; 81003; 81025; 85025; 99283

== ENCOUNTER 2023-11-15 09:35 | Emergency (ER) | payer MEDICAID ==
[~2023-11-15] VITALS: Ht 154.9 cm; Wt 95.0 kg
[~2023-11-15 09:35] MED LIST changes: -P20 MT
[2023-11-15 09:46] VITALS: O2SAT 99
[2023-11-15 11:18] LABS: BASOPHILS % 0.9 % (0.0-2.0); EOSINOPHILS % 5.7 % (0.0-5.0); HEMATOCRIT. 40.2 % (36.0-48.0); HEMOGLOBIN. 13.5 g/dL (12.0-16.0); LYMPHOCYTES % 33.3 % (20.0-50.0); MEAN CORPUSCULAR HEMOGLOBIN 30.9 pg (28.0-32.0); MEAN CORPUSCULAR HGB CONC 33.6 g/dL (31.0-37.0); MEAN CORPUSCULAR VOLUME 91.9 fL (81.0-99.0); MONOCYTES % 5.9 % (2.0-8.0); NEUTROPHILS % 54.2 % (40.0-76.0); PLATELET 271 x1000/uL (130-400); RED BLOOD CELL COUNT 4.37 mill/uL (4.2-5.4); RED CELL DISTRIBUTION WIDTH 15.8 % (11.6-14.6); WHITE BLOOD COUNT 4.5 x1000/uL (4.5-11.0)
[2023-11-15 11:27] LABS: D-DIMER 0.81 mg/L FEU (<0.50); PARTIAL THROMBOPLASTIN TIME 25.2 sec (23.4-31.0); PROTHROMBIN TIME 10.8 sec (9.6-11.0)
[2023-11-15 11:34] LABS: ALANINE AMINOTRANSFERASE 14 IU/L (10-49); ALBUMIN 4.5 g/dL (3.2-4.8); ASPARTATE AMINOTRANSFERASE 17 IU/L (<34); BILIRUBIN TOTAL 0.4 mg/dL (0.1-1.0); CALCIUM 9.7 mg/dL (8.7-10.4); CARBON DIOXIDE 28 mEq/L (21-32); CHLORIDE 108 mEq/L (98-107); CREATININE 1.3 mg/dL (0.6-1.0); GLUCOSE 86 mg/dL (70-105); POTASSIUM 4.2 mEq/L (3.5-5.1); PROTEIN TOTAL 7.5 g/dL (6.0-8.3); SODIUM 141 mEq/L (136-145); TROPONIN I HIGH SENSITIVITY 4 ng/L (3.0-34); UREA NITROGEN BLOOD 15 mg/dL (9-23)
[2023-11-15 11:37] LABS: HCG SCREEN NEGATIVE
[2023-11-15 14:55] LABS: TROPONIN I HIGH SENSITIVITY 4 ng/L (3.0-34)
[2023-11-15 17:13] VITALS: BP 144/88; PULSE 83; RESP 18; TEMP 98.1
== END 2023-11-15 17:17 | disposition home or self-care (01) ==
LOC: ER 09:35
DX: R07.89 Other chest pain (principal); I10 Essential (primary) hypertension; J45.909 Unspecified asthma, uncomplicated; Z98.890 Other specified postprocedural states; Z98.51 Tubal ligation status
CPT/HCPCS: 80053; 84703; 83880; 83605; 83690; 85025; 85379; 85610; 85730; 86850; 86900; 86901; 84484; 36415; 93308; 71045; 71275; 93005; 99285; Z7610 ×2

== ENCOUNTER 2023-11-24 19:25 | Emergency (ER) | payer MEDICAID ==
[~2023-11-24] VITALS: Ht 162.6 cm; Wt 89.5 kg
[2023-11-24 20:18] VITALS: PULSE 66; RESP 18; O2SAT 99
[2023-11-24] MEDS: IPRATROPIUM/ALBUTEROL 0.5-3(2.5)MG/3ML NEB HHN ONE (20:18)
[2023-11-24] MEDS: DEXAMETHASONE 2MG TABLET PO ONE (21:04)
[2023-11-24] MEDS ORDERED: ALBU6.7H15 INH (21:31)
[2023-11-24 23:14] VITALS: BP 167/86; PULSE 76; RESP 18; TEMP 98
== END 2023-11-24 23:16 | disposition home or self-care (01) ==
LOC: ER 19:25
DX: J45.901 Unspecified asthma with (acute) exacerbation (principal); I10 Essential (primary) hypertension; I20.9 Angina pectoris, unspecified; Z98.51 Tubal ligation status
CPT/HCPCS: 71045; 94640; 93005; 99283; J8540; Z7610 ×3

== ENCOUNTER 2023-12-03 09:25 | Emergency (ER) | payer MEDICAID ==
[~2023-12-03] VITALS: Ht 162.6 cm; Wt 95.0 kg
[2023-12-03 09:37] VITALS: O2SAT 100
[2023-12-03 10:56] VITALS: BP 159/75; PULSE 61; RESP 12; TEMP 97.8
== END 2023-12-03 10:57 | disposition home or self-care (01) ==
LOC: ER 09:25
DX: I10 Essential (primary) hypertension (principal); J45.909 Unspecified asthma, uncomplicated; Z85.9 Personal history of malignant neoplasm, unspecified; Z98.51 Tubal ligation status
CPT/HCPCS: 93005; 99283

== ENCOUNTER 2023-12-21 03:00 | Emergency (ER) | payer MEDICAID ==
[~2023-12-21] VITALS: Ht 167.6 cm; Wt 97.0 kg
[~2023-12-21 03:00] MED LIST changes: -AMLO10TA80 MT; +AMLO5TAB88 PO; +ASPI-1160 PO; +FERR325T6 MT; -FLUT1DIS2 IH; +LOSA50TA41 MT
[2023-12-21 03:12] VITALS: O2SAT 98
[2023-12-21 04:42] LABS: BASOPHILS % 0.5 % (0.0-2.0); EOSINOPHILS % 2.6 % (0.0-5.0); HEMATOCRIT. 37.9 % (36.0-48.0); HEMOGLOBIN. 12.8 g/dL (12.0-16.0); LYMPHOCYTES % 24.2 % (20.0-50.0); MEAN CORPUSCULAR HEMOGLOBIN 30.8 pg (28.0-32.0); MEAN CORPUSCULAR HGB CONC 33.8 g/dL (31.0-37.0); MEAN CORPUSCULAR VOLUME 91.2 fL (81.0-99.0); MEAN PLATELET VOLUME 8.8 fl (7.4-10.4); MONOCYTES % 9.1 % (2.0-8.0); NEUTROPHILS % 63.6 % (40.0-76.0); PLATELET 280 x1000/uL (130-400); RED BLOOD CELL COUNT 4.16 mill/uL (4.2-5.4); RED CELL DISTRIBUTION WIDTH 16.1 % (11.6-14.6); WHITE BLOOD COUNT 6.5 x1000/uL (4.5-11.0)
[2023-12-21 04:58] LABS: ALANINE AMINOTRANSFERASE 29 IU/L (10-49); ALBUMIN 4.8 g/dL (3.2-4.8); ASPARTATE AMINOTRANSFERASE 27 IU/L (<34); BILIRUBIN TOTAL 0.3 mg/dL (0.1-1.0); CALCIUM 9.6 mg/dL (8.7-10.4); CARBON DIOXIDE 28 mEq/L (21-32); CHLORIDE 106 mEq/L (98-107); CREATINE KINASE 172 IU/L (34-145); CREATININE 1.5 mg/dL (0.6-1.0); GLUCOSE 93 mg/dL (70-105); PHOSPHORUS 3.4 mg/dL (2.5-4.9); POTASSIUM 3.6 mEq/L (3.5-5.1); PROTEIN TOTAL 8.3 g/dL (6.0-8.3); SODIUM 140 mEq/L (136-145); UREA NITROGEN BLOOD 21 mg/dL (9-23)
[2023-12-21 04:59] LABS: HCG SCREEN NEGATIVE
[2023-12-21] MEDS: KETOROLAC 60MG/2ML VIAL IM ONE (08:40)
[2023-12-21] MEDS ORDERED: AMOX1TAB16 MT (09:10)
[2023-12-21 09:25] VITALS: BP 129/91; PULSE 86; RESP 18; TEMP 98.6
== END 2023-12-21 10:22 | disposition home or self-care (01) ==
LOC: ER 03:00
DX: K57.92 Diverticulitis of intestine, part unspecified, without perforation or abscess without bleeding (principal); I10 Essential (primary) hypertension; J45.909 Unspecified asthma, uncomplicated; Z98.51 Tubal ligation status; Z79.899 Other long term (current) drug therapy
CPT/HCPCS: 99285; 74176; 80053; 81025; 82550; 84703; 83735; 84100; 85025; 36415; 96372; J1885

== ENCOUNTER 2024-01-10 15:29 | Emergency (ER) | payer MEDICAID ==
[~2024-01-10] VITALS: Ht 165.1 cm; Wt 100.0 kg
[~2024-01-10 15:29] MED LIST changes: +AMOX1TAB16 MT
[2024-01-10 15:38] VITALS: TEMP 97.9; O2SAT 98
[2024-01-10 16:21] LABS: BASOPHILS % 0.9 % (0.0-2.0); EOSINOPHILS % 3.2 % (0.0-5.0); HEMOGLOBIN. 12.1 g/dL (12.0-16.0); LYMPHOCYTES % 32.9 % (20.0-50.0); MEAN CORPUSCULAR HEMOGLOBIN 29.7 pg (28.0-32.0); MEAN CORPUSCULAR HGB CONC 32.6 g/dL (31.0-37.0); MEAN PLATELET VOLUME 8.4 fl (7.4-10.4); MONOCYTES % 8.7 % (2.0-8.0); NEUTROPHILS % 54.3 % (40.0-76.0); PLATELET 269 x1000/uL (130-400); RED BLOOD CELL COUNT 4.07 mill/uL (4.2-5.4); RED CELL DISTRIBUTION WIDTH 16.2 % (11.6-14.6); WHITE BLOOD COUNT 5.3 x1000/uL (4.5-11.0)
[2024-01-10 16:38] LABS: ALANINE AMINOTRANSFERASE 28 IU/L (10-49); ALBUMIN 4.4 g/dL (3.2-4.8); ASPARTATE AMINOTRANSFERASE 24 IU/L (<34); BILIRUBIN TOTAL 0.3 mg/dL (0.1-1.0); CALCIUM 8.9 mg/dL (8.7-10.4); CARBON DIOXIDE 30 mEq/L (21-32); CHLORIDE 107 mEq/L (98-107); CREATININE 1.5 mg/dL (0.6-1.0); GLUCOSE 107 mg/dL (70-105); POTASSIUM 3.2 mEq/L (3.5-5.1); PROTEIN TOTAL 7.1 g/dL (6.0-8.3); SODIUM 142 mEq/L (136-145); UREA NITROGEN BLOOD 15 mg/dL (9-23)
[2024-01-10 16:45] LABS: TROPONIN I HIGH SENSITIVITY < 4 ng/L (3.0-34)
[2024-01-10 17:20] LABS: HCG SCREEN NEGATIVE
[2024-01-11] MEDS: HYDROCODONE/ACETAMINOPHEN 5/325MG TABLET PO NR (05:47)
[2024-01-11 05:53] VITALS: BP 125/85; PULSE 87; RESP 14
[2024-01-11] MEDS ORDERED: IOHEXOL-350 100 ML BOTTLE ONE (06:39)
== END 2024-01-11 05:54 | disposition home or self-care (01) ==
LOC: ER 15:29
DX: R07.89 Other chest pain (principal); J45.909 Unspecified asthma, uncomplicated; Z85.9 Personal history of malignant neoplasm, unspecified; I10 Essential (primary) hypertension; Z98.51 Tubal ligation status; Z79.899 Other long term (current) drug therapy
CPT/HCPCS: 99285; 71045; 80053; 84703; 83690; 85025; 85379; 84484; 93005; 71275; 36415; Q9967

== ENCOUNTER 2024-01-24 15:08 | Emergency (ER) | payer MEDICAID ==
[~2024-01-24] VITALS: Ht 167.6 cm; Wt 93.0 kg
[2024-01-24 15:27] VITALS: BP 120/82; PULSE 82; RESP 16; TEMP 99.7; O2SAT 100
[2024-01-24 16:21] LABS: BASOPHILS % 0.8 % (0.0-2.0); EOSINOPHILS % 3.8 % (0.0-5.0); HEMOGLOBIN. 12.8 g/dL (12.0-16.0); LYMPHOCYTES % 33.1 % (20.0-50.0); MEAN CORPUSCULAR HEMOGLOBIN 30.8 pg (28.0-32.0); MEAN CORPUSCULAR HGB CONC 33.6 g/dL (31.0-37.0); MEAN CORPUSCULAR VOLUME 91.7 fL (81.0-99.0); MEAN PLATELET VOLUME 8.4 fl (7.4-10.4); MONOCYTES % 8.8 % (2.0-8.0); NEUTROPHILS % 53.5 % (40.0-76.0); PLATELET 270 x1000/uL (130-400); RED BLOOD CELL COUNT 4.14 mill/uL (4.2-5.4); RED CELL DISTRIBUTION WIDTH 16.2 % (11.6-14.6); WHITE BLOOD COUNT 5.7 x1000/uL (4.5-11.0)
[2024-01-24 16:39] LABS: ALANINE AMINOTRANSFERASE 15 IU/L (10-49); ALBUMIN 4.3 g/dL (3.2-4.8); ASPARTATE AMINOTRANSFERASE 20 IU/L (<34); BILIRUBIN TOTAL 0.2 mg/dL (0.1-1.0); CALCIUM 9.2 mg/dL (8.7-10.4); CARBON DIOXIDE 28 mEq/L (21-32); CHLORIDE 106 mEq/L (98-107); CREATININE 1.5 mg/dL (0.6-1.0); GLUCOSE 96 mg/dL (70-105); POTASSIUM 3.9 mEq/L (3.5-5.1); PROTEIN TOTAL 7.3 g/dL (6.0-8.3); SODIUM 140 mEq/L (136-145); UREA NITROGEN BLOOD 14 mg/dL (9-23)
[2024-01-24 16:43] LABS: TROPONIN I HIGH SENSITIVITY < 4 ng/L (3.0-34)
[2024-01-24] MEDS ORDERED: ACET-2708 MT (18:46)
== END 2024-01-24 21:51 | disposition home or self-care (01) ==
LOC: ER 15:08
DX: R07.9 Chest pain, unspecified (principal); J45.909 Unspecified asthma, uncomplicated; I10 Essential (primary) hypertension; I20.9 Angina pectoris, unspecified; Z85.53 Personal history of malignant neoplasm of renal pelvis; Z98.51 Tubal ligation status; Z98.890 Other specified postprocedural states
CPT/HCPCS: 36415; 71045; 80053; 84484; 85025; 93005; 99285

== ENCOUNTER 2024-01-26 17:17 | Emergency (ER) | payer MEDICAID ==
[~2024-01-26] VITALS: Ht 167.6 cm; Wt 92.0 kg
[~2024-01-26 17:17] MED LIST changes: +ACET-2708 MT
[2024-01-26 17:26] VITALS: TEMP 98.8; O2SAT 100
[2024-01-26 18:17] LABS: BASOPHILS % 0.7 % (0.0-2.0); EOSINOPHILS % 4.5 % (0.0-5.0); HEMATOCRIT. 37.5 % (36.0-48.0); HEMOGLOBIN. 12.5 g/dL (12.0-16.0); LYMPHOCYTES % 36.6 % (20.0-50.0); MEAN CORPUSCULAR HEMOGLOBIN 30.5 pg (28.0-32.0); MEAN CORPUSCULAR HGB CONC 33.4 g/dL (31.0-37.0); MEAN CORPUSCULAR VOLUME 91.5 fL (81.0-99.0); MEAN PLATELET VOLUME 8.6 fl (7.4-10.4); MONOCYTES % 7.6 % (2.0-8.0); NEUTROPHILS % 50.6 % (40.0-76.0); PLATELET 266 x1000/uL (130-400); WHITE BLOOD COUNT 5.5 x1000/uL (4.5-11.0)
[2024-01-26 18:33] LABS: CARBON DIOXIDE 30 mEq/L (21-32); CHLORIDE 105 mEq/L (98-107); CREATININE 1.5 mg/dL (0.6-1.0); GLUCOSE 96 mg/dL (70-105); POTASSIUM 3.3 mEq/L (3.5-5.1); SODIUM 141 mEq/L (136-145); UREA NITROGEN BLOOD 18 mg/dL (9-23)
[2024-01-26 18:34] LABS: ALANINE AMINOTRANSFERASE 15 IU/L (10-49); ALBUMIN 4.4 g/dL (3.2-4.8); ASPARTATE AMINOTRANSFERASE 18 IU/L (<34); BILIRUBIN TOTAL 0.3 mg/dL (0.1-1.0); PROTEIN TOTAL 7.2 g/dL (6.0-8.3)
[2024-01-26] MEDS: ACETAMINOPHEN 325MG TABLET PO ONE (21:50)
[2024-01-26 22:02] LABS: CLARITY URINE CLEAR (CLEAR); COLOR URINE YELLOW (YELLOW); GLUCOSE URINE NEGATIVE (NEGATIVE); KETONES URINE NEGATIVE (NEGATIVE); LEUKOCYTE ESTERASE URINE NEGATIVE (NEGATIVE); NITRITE URINE NEGATIVE (NEGATIVE); OCCULT BLOOD URINE NEGATIVE (NEGATIVE); PH URINE 5.5 (4.5-8.0); PROTEIN URINE NEGATIVE (NEGATIVE); SPECIFIC GRAVITY URINE 1.018 (1.005-1.030); UROBILINOGEN URINE 0.2 E.U./dL (0.2-1.0)
[2024-01-27 00:11] LABS: TROPONIN I HIGH SENSITIVITY 4 ng/L (3.0-34)
[2024-01-27] MEDS: POTASSIUM CHLORIDE 20MEQ TABLET SR PO NR (00:11)
[2024-01-27 01:02] VITALS: BP 140/76; PULSE 89; RESP 16
== END 2024-01-27 01:03 | disposition home or self-care (01) ==
LOC: ER 17:17
DX: R42 Dizziness and giddiness (principal); R51.9 Headache, unspecified; J45.909 Unspecified asthma, uncomplicated; I10 Essential (primary) hypertension; Z85.9 Personal history of malignant neoplasm, unspecified; Z98.51 Tubal ligation status; Z79.899 Other long term (current) drug therapy
CPT/HCPCS: 36415; 80053; 81003; 81025; 84484; 85025; 93005; 99284

== ENCOUNTER 2024-02-05 15:15 | Emergency (ER) | payer MEDICAID ==
[~2024-02-05] VITALS: Ht 167.6 cm; Wt 95.0 kg
[2024-02-05 15:50] VITALS: O2SAT 97
[2024-02-05] MEDS: ACETAMINOPHEN 325MG TABLET PO ONE (16:34)
[2024-02-05 16:40] LABS: CLARITY URINE CLEAR (CLEAR); COLOR URINE YELLOW (YELLOW); GLUCOSE URINE NEGATIVE (NEGATIVE); KETONES URINE NEGATIVE (NEGATIVE); LEUKOCYTE ESTERASE URINE NEGATIVE (NEGATIVE); NITRITE URINE NEGATIVE (NEGATIVE); OCCULT BLOOD URINE NEGATIVE (NEGATIVE); PH URINE 5.5 (4.5-8.0); PROTEIN URINE NEGATIVE (NEGATIVE); SPECIFIC GRAVITY URINE 1.021 (1.005-1.030)
[2024-02-05] MEDS ORDERED: ACET-2708 MT (19:16)
[2024-02-05 19:40] VITALS: BP 133/84; PULSE 62; RESP 17; TEMP 98.3
== END 2024-02-05 19:42 | disposition home or self-care (01) ==
LOC: ER 15:15
DX: M54.50 Low back pain, unspecified (principal); R10.9 Unspecified abdominal pain; J45.909 Unspecified asthma, uncomplicated; I10 Essential (primary) hypertension; I20.9 Angina pectoris, unspecified; Z79.899 Other long term (current) drug therapy; Z85.9 Personal history of malignant neoplasm, unspecified
CPT/HCPCS: 72110; 81003; 81025; 99284

== ENCOUNTER 2024-02-28 19:33 | Emergency (ER) | payer MEDICAID ==
[~2024-02-28] VITALS: Ht 162.6 cm; Wt 100.5 kg
[2024-02-28 20:09] VITALS: BP 140/87; PULSE 81; RESP 14; TEMP 97.6; O2SAT 100
[2024-02-28 21:12] LABS: BASOPHILS % 1.1 % (0.0-2.0); EOSINOPHILS % 3.4 % (0.0-5.0); HEMATOCRIT. 36.1 % (36.0-48.0); HEMOGLOBIN. 12.2 g/dL (12.0-16.0); LYMPHOCYTES % 37.3 % (20.0-50.0); MEAN CORPUSCULAR HEMOGLOBIN 31.1 pg (28.0-32.0); MEAN CORPUSCULAR HGB CONC 33.8 g/dL (31.0-37.0); MEAN PLATELET VOLUME 8.7 fl (7.4-10.4); MONOCYTES % 7.6 % (2.0-8.0); NEUTROPHILS % 50.6 % (40.0-76.0); PLATELET 301 x1000/uL (130-400); RED BLOOD CELL COUNT 3.92 mill/uL (4.2-5.4); RED CELL DISTRIBUTION WIDTH 16.4 % (11.6-14.6); WHITE BLOOD COUNT 6.1 x1000/uL (4.5-11.0)
[2024-02-28 21:18] LABS: CHLORIDE 106 mEq/L (98-107); POTASSIUM 3.4 mEq/L (3.5-5.1); SODIUM 144 mEq/L (136-145)
[2024-02-28 21:19] LABS: CARBON DIOXIDE 29 mEq/L (21-32)
[2024-02-28 21:20] LABS: CALCIUM 9.7 mg/dL (8.7-10.4)
[2024-02-28 21:21] LABS: HCG SCREEN NEGATIVE
[2024-02-28 21:24] LABS: CREATININE 1.7 mg/dL (0.6-1.0); GLUCOSE 93 mg/dL (70-105); UREA NITROGEN BLOOD 21 mg/dL (9-23)
[2024-02-28 21:28] LABS: TROPONIN I HIGH SENSITIVITY < 4 ng/L (3.0-34)
[2024-02-29 02:37] LABS: TROPONIN I HIGH SENSITIVITY < 4 ng/L (3.0-34)
[2024-02-29] MEDS ORDERED: IBUP-2029 MT (02:39)
== END 2024-02-29 03:12 | disposition home or self-care (01) ==
LOC: ER 19:33
DX: R07.89 Other chest pain (principal); J45.909 Unspecified asthma, uncomplicated; I10 Essential (primary) hypertension; I20.9 Angina pectoris, unspecified; Z98.51 Tubal ligation status; Z79.899 Other long term (current) drug therapy
CPT/HCPCS: 36415; 71045; 80048; 84484; 84703; 85025; 93005; 99285

== ENCOUNTER 2024-03-07 19:14 | Emergency (ER) | payer MEDICAID ==
[~2024-03-07] VITALS: Ht 162.6 cm; Wt 96.0 kg
[~2024-03-07 19:14] MED LIST changes: +IBUP-2029 MT
[2024-03-07 19:43] VITALS: BP 145/86; PULSE 86; RESP 16; TEMP 98.5; O2SAT 100
[2024-03-07] MEDS: TETRACAINE 0.5% OPHTH DROPS 4ML LEFTEYE ONE (21:15)
[2024-03-07] MEDS: FLUORESCEIN SODIUM 1MG/STRIP LEFTEYE ONE (21:15)
[2024-03-07] MEDS ORDERED: DEXT15DR5 LEFTEYE (21:45)
== END 2024-03-07 22:04 | disposition home or self-care (01) ==
LOC: ER 19:14
DX: H53.8 Other visual disturbances (principal); J45.909 Unspecified asthma, uncomplicated; I10 Essential (primary) hypertension; I20.9 Angina pectoris, unspecified; Z85.9 Personal history of malignant neoplasm, unspecified; Z79.899 Other long term (current) drug therapy
CPT/HCPCS: 99283

== ENCOUNTER 2024-03-21 19:26 | Emergency (ER) | payer MEDICAID ==
[~2024-03-21] VITALS: Ht 162.6 cm; Wt 100.0 kg
[~2024-03-21 19:26] MED LIST changes: +DEXT15DR5 LEFTEYE
[2024-03-21 19:41] VITALS: O2SAT 97
[2024-03-21 20:00] VITALS: PULSE 86; RESP 18
[2024-03-21] MEDS: IPRATROPIUM BROMIDE (0.02%) 0.5MG/2.5ML NEB HHN STA (20:00)
[2024-03-21] MEDS: ALBUTEROL (0.083%) 2.5MG/3ML NEB HHN STA (20:00)
[2024-03-21] MEDS: ASPIRIN 325MG EC TABLET PO ONE (20:36)
[2024-03-21 20:48] LABS: EOSINOPHILS % 3.2 % (0.0-5.0); HEMATOCRIT. 35.3 % (36.0-48.0); HEMOGLOBIN. 11.8 g/dL (12.0-16.0); LYMPHOCYTES % 40.9 % (20.0-50.0); MEAN CORPUSCULAR HEMOGLOBIN 30.9 pg (28.0-32.0); MEAN CORPUSCULAR HGB CONC 33.4 g/dL (31.0-37.0); MEAN CORPUSCULAR VOLUME 92.4 fL (81.0-99.0); MEAN PLATELET VOLUME 8.6 fl (7.4-10.4); MONOCYTES % 8.1 % (2.0-8.0); NEUTROPHILS % 46.8 % (40.0-76.0); PLATELET 282 x1000/uL (130-400); RED BLOOD CELL COUNT 3.82 mill/uL (4.2-5.4); RED CELL DISTRIBUTION WIDTH 16.3 % (11.6-14.6); WHITE BLOOD COUNT 6.6 x1000/uL (4.5-11.0)
[2024-03-21 20:51] LABS: CHLORIDE 107 mEq/L (98-107); POTASSIUM 3.3 mEq/L (3.5-5.1); SODIUM 141 mEq/L (136-145)
[2024-03-21 20:52] LABS: CALCIUM 9.4 mg/dL (8.7-10.4); CARBON DIOXIDE 26 mEq/L (21-32)
[2024-03-21 20:57] LABS: CREATININE 1.7 mg/dL (0.6-1.0); GLUCOSE 111 mg/dL (70-105); UREA NITROGEN BLOOD 23 mg/dL (9-23)
[2024-03-21 20:59] LABS: ALANINE AMINOTRANSFERASE 16 IU/L (10-49); ALBUMIN 4.2 g/dL (3.2-4.8); ASPARTATE AMINOTRANSFERASE 18 IU/L (<34); BILIRUBIN TOTAL 0.3 mg/dL (0.1-1.0); HCG SCREEN NEGATIVE; PROTEIN TOTAL 7.1 g/dL (6.0-8.3); TROPONIN I HIGH SENSITIVITY < 4 ng/L (3.0-34)
[2024-03-21 21:00] LABS: BILIRUBIN DIRECT < 0.1 mg/dL (<=3.0)
[2024-03-21] MEDS ORDERED: IOHEXOL-350 100 ML BOTTLE ONE (22:14)
[2024-03-21] MEDS: POTASSIUM CHLORIDE 20MEQ/PACKET PO ONE (22:18)
[2024-03-21] MEDS: SODIUM CHLORIDE 0.9% 1,000 ML IV ONE (22:24)
[2024-03-22 00:36] VITALS: BP 118/71; PULSE 65; RESP 16; TEMP 98.7
== END 2024-03-22 00:39 | disposition home or self-care (01) ==
LOC: ER 19:26
DX: R07.89 Other chest pain (principal); I10 Essential (primary) hypertension; J45.909 Unspecified asthma, uncomplicated; Z85.9 Personal history of malignant neoplasm, unspecified; Z79.899 Other long term (current) drug therapy
CPT/HCPCS: 80076; 80048; 84703; 83880; 85025; 85379; 84484; 36415; 71045; 71275; 94640; 96360; 96361; 99285; Q9967; Z7610 ×3; J7030

== ENCOUNTER 2024-04-10 17:36 | Emergency (ER) | payer MEDICAID ==
[~2024-04-10] VITALS: Ht 162.6 cm; Wt 95.0 kg
[2024-04-10 17:45] VITALS: BP 135/81; TEMP 98.4; O2SAT 98
[2024-04-10 19:43] LABS: BASOPHILS % 0.9 % (0.0-2.0); EOSINOPHILS % 4.8 % (0.0-5.0); HEMATOCRIT. 36.1 % (36.0-48.0); HEMOGLOBIN. 11.8 g/dL (12.0-16.0); LYMPHOCYTES % 34.6 % (20.0-50.0); MEAN CORPUSCULAR HEMOGLOBIN 30.4 pg (28.0-32.0); MEAN CORPUSCULAR HGB CONC 32.6 g/dL (31.0-37.0); MEAN CORPUSCULAR VOLUME 93.1 fL (81.0-99.0); MEAN PLATELET VOLUME 8.9 fl (7.4-10.4); MONOCYTES % 7.8 % (2.0-8.0); NEUTROPHILS % 51.9 % (40.0-76.0); PLATELET 293 x1000/uL (130-400); RED BLOOD CELL COUNT 3.88 mill/uL (4.2-5.4); RED CELL DISTRIBUTION WIDTH 15.6 % (11.6-14.6); WHITE BLOOD COUNT 5.9 x1000/uL (4.5-11.0)
[2024-04-10 19:58] LABS: TROPONIN I HIGH SENSITIVITY < 4 ng/L (3.0-34)
[2024-04-10 21:55] LABS: POTASSIUM 3.5 mEq/L (3.5-5.1)
[2024-04-10 21:57] LABS: CALCIUM 9.3 mg/dL (8.7-10.4)
[2024-04-10 22:01] LABS: CREATININE 1.6 mg/dL (0.6-1.0)
[2024-04-10] MEDS: IBUPROFEN 600MG TABLET PO ONE (23:16)
[2024-04-10 23:21] VITALS: PULSE 87; RESP 16
== END 2024-04-10 23:22 | disposition home or self-care (01) ==
LOC: ER 17:36
DX: R07.89 Other chest pain (principal); J45.909 Unspecified asthma, uncomplicated; I10 Essential (primary) hypertension; I20.9 Angina pectoris, unspecified; Z85.9 Personal history of malignant neoplasm, unspecified; Z79.899 Other long term (current) drug therapy; Z98.51 Tubal ligation status
CPT/HCPCS: 36415; 71045; 80048; 83880; 84484; 85025; 93005; 99285

== ENCOUNTER 2024-04-21 12:30 | Emergency (ER) | payer MEDICAID ==
[~2024-04-21] VITALS: Ht 160 cm; Wt 86.0 kg
[2024-04-21 12:51] VITALS: O2SAT 97
[2024-04-21 14:42] LABS: BASOPHILS % 0.7 % (0.0-2.0); EOSINOPHILS % 5.9 % (0.0-5.0); HEMATOCRIT. 35.3 % (36.0-48.0); HEMOGLOBIN. 11.9 g/dL (12.0-16.0); LYMPHOCYTES % 30.9 % (20.0-50.0); MEAN CORPUSCULAR HEMOGLOBIN 31.3 pg (28.0-32.0); MEAN CORPUSCULAR HGB CONC 33.9 g/dL (31.0-37.0); MEAN CORPUSCULAR VOLUME 92.5 fL (81.0-99.0); MEAN PLATELET VOLUME 8.3 fl (7.4-10.4); MONOCYTES % 7.8 % (2.0-8.0); NEUTROPHILS % 54.7 % (40.0-76.0); PLATELET 288 x1000/uL (130-400); RED BLOOD CELL COUNT 3.81 mill/uL (4.2-5.4); RED CELL DISTRIBUTION WIDTH 15.8 % (11.6-14.6); WHITE BLOOD COUNT 5.8 x1000/uL (4.5-11.0)
[2024-04-21 14:48] LABS: CHLORIDE 107 mEq/L (98-107); POTASSIUM 3.8 mEq/L (3.5-5.1); SODIUM 141 mEq/L (136-145)
[2024-04-21 14:49] LABS: CALCIUM 9.5 mg/dL (8.7-10.4); CARBON DIOXIDE 30 mEq/L (21-32)
[2024-04-21] MEDS: ACETAMINOPHEN 325MG TABLET PO STA (14:50)
[2024-04-21 14:54] LABS: CREATININE 1.5 mg/dL (0.6-1.0); GLUCOSE 79 mg/dL (70-105); UREA NITROGEN BLOOD 23 mg/dL (9-23)
[2024-04-21 15:05] LABS: TROPONIN I HIGH SENSITIVITY < 4 ng/L (3.0-34)
[2024-04-21 15:28] VITALS: BP 141/88; PULSE 78; RESP 20; TEMP 98
== END 2024-04-21 15:28 | disposition home or self-care (01) ==
LOC: ER 12:30
DX: R07.89 Other chest pain (principal); J45.909 Unspecified asthma, uncomplicated; Z79.82 Long term (current) use of aspirin; Z98.51 Tubal ligation status; Z79.899 Other long term (current) drug therapy; Z98.890 Other specified postprocedural states
CPT/HCPCS: 80048; 85025; 84484; 36415; 71045; 99284; Z7610

== ENCOUNTER 2024-05-03 12:50 | Emergency (ER) | payer MEDICAID ==
[~2024-05-03] VITALS: Ht 167.6 cm; Wt 100.0 kg
[2024-05-03 13:09] VITALS: O2SAT 98
[2024-05-03 13:28] LABS: BASOPHILS % 1.4 % (0.0-2.0); EOSINOPHILS % 4.7 % (0.0-5.0); HEMATOCRIT. 36.7 % (36.0-48.0); HEMOGLOBIN. 12.3 g/dL (12.0-16.0); LYMPHOCYTES % 38.6 % (20.0-50.0); MEAN CORPUSCULAR HEMOGLOBIN 31.1 pg (28.0-32.0); MEAN CORPUSCULAR HGB CONC 33.6 g/dL (31.0-37.0); MEAN CORPUSCULAR VOLUME 92.6 fL (81.0-99.0); MEAN PLATELET VOLUME 8.5 fl (7.4-10.4); NEUTROPHILS % 48.3 % (40.0-76.0); PLATELET 334 x1000/uL (130-400); RED BLOOD CELL COUNT 3.97 mill/uL (4.2-5.4); RED CELL DISTRIBUTION WIDTH 15.6 % (11.6-14.6); WHITE BLOOD COUNT 5.2 x1000/uL (4.5-11.0)
[2024-05-03 13:37] LABS: CHLORIDE 109 mEq/L (98-107); POTASSIUM 3.4 mEq/L (3.5-5.1); SODIUM 144 mEq/L (136-145)
[2024-05-03 13:38] LABS: CARBON DIOXIDE 26 mEq/L (21-32)
[2024-05-03 13:38] LABS: UCG SCREEN NEGATIVE
[2024-05-03 13:39] LABS: CALCIUM 9.6 mg/dL (8.7-10.4)
[2024-05-03 13:40] LABS: CLARITY URINE CLOUDY (CLEAR); COLOR URINE YELLOW (YELLOW); GLUCOSE URINE NEGATIVE (NEGATIVE); KETONES URINE NEGATIVE (NEGATIVE); LEUKOCYTE ESTERASE URINE 1+ (NEGATIVE); NITRITE URINE NEGATIVE (NEGATIVE); OCCULT BLOOD URINE NEGATIVE (NEGATIVE); PH URINE 5.5 (4.5-8.0); PROTEIN URINE TRACE (NEGATIVE); SPECIFIC GRAVITY URINE 1.027 (1.005-1.030)
[2024-05-03 13:43] LABS: CREATININE 1.7 mg/dL (0.6-1.0); GLUCOSE 102 mg/dL (70-105)
[2024-05-03 13:44] LABS: UREA NITROGEN BLOOD 17 mg/dL (9-23)
[2024-05-03 13:45] LABS: ALANINE AMINOTRANSFERASE 18 IU/L (10-49); ALBUMIN 4.6 g/dL (3.2-4.8); ASPARTATE AMINOTRANSFERASE 19 IU/L (<34)
[2024-05-03 13:46] LABS: BILIRUBIN DIRECT 0.1 mg/dL (<=3.0); BILIRUBIN TOTAL 0.4 mg/dL (0.1-1.0); PROTEIN TOTAL 7.5 g/dL (6.0-8.3)
[2024-05-03 13:57] LABS: SQUAMOUS EPITHELIAL CELL URINE 3+ /lpf (RARE/1+)
[2024-05-03 13:58] LABS: BACTERIA URINE 3+
[2024-05-03 13:59] LABS: RBC URINE NONE SEEN /hpf (0-2)
[2024-05-03] MEDS: ACETAMINOPHEN 325MG TABLET PO ONE (14:30)
[2024-05-03] MEDS: METOCLOPRAMIDE HCL 10MG TABLET PO ONE (14:30)
[2024-05-03] MEDS: ACETAMINOPHEN 325MG TABLET PO SCH (16:15)
[2024-05-03] MEDS: METOCLOPRAMIDE HCL 10MG TABLET PO SCH (16:15)
[2024-05-03 18:01] VITALS: BP 145/87; PULSE 89; RESP 18; TEMP 98.4
== END 2024-05-03 18:16 | disposition home or self-care (01) ==
LOC: ER 12:50
DX: R10.32 Left lower quadrant pain (principal); R51.9 Headache, unspecified; J45.909 Unspecified asthma, uncomplicated; I20.9 Angina pectoris, unspecified; I10 Essential (primary) hypertension; Z98.51 Tubal ligation status; Z85.9 Personal history of malignant neoplasm, unspecified; Z98.890 Other specified postprocedural states
CPT/HCPCS: 99284; 70450; 80076; 80048; 81003; 81025; 85025; 86850; 86900; 86901; 36415; 74176; J8597

== ENCOUNTER 2024-05-18 19:52 | Emergency (ER) | payer MEDICAID ==
[~2024-05-18] VITALS: Ht 157.5 cm; Wt 98.0 kg
[2024-05-18 19:57] VITALS: O2SAT 97
[2024-05-18 20:57] LABS: EOSINOPHILS % 3.8 % (0.0-5.0); HEMATOCRIT. 37.8 % (36.0-48.0); HEMOGLOBIN. 12.9 g/dL (12.0-16.0); LYMPHOCYTES % 37.3 % (20.0-50.0); MEAN CORPUSCULAR HEMOGLOBIN 31.7 pg (28.0-32.0); MEAN CORPUSCULAR HGB CONC 34.1 g/dL (31.0-37.0); MEAN PLATELET VOLUME 8.6 fl (7.4-10.4); MONOCYTES % 6.1 % (2.0-8.0); NEUTROPHILS % 51.8 % (40.0-76.0); PLATELET 305 x1000/uL (130-400); RED BLOOD CELL COUNT 4.06 mill/uL (4.2-5.4); RED CELL DISTRIBUTION WIDTH 15.7 % (11.6-14.6); WHITE BLOOD COUNT 6.2 x1000/uL (4.5-11.0)
[2024-05-18 21:02] LABS: CHLORIDE 107 mEq/L (98-107); POTASSIUM 3.5 mEq/L (3.5-5.1); SODIUM 142 mEq/L (136-145)
[2024-05-18 21:03] LABS: CALCIUM 10.1 mg/dL (8.7-10.4); CARBON DIOXIDE 28 mEq/L (21-32)
[2024-05-18 21:07] LABS: CLARITY URINE CLOUDY (CLEAR); COLOR URINE YELLOW (YELLOW); GLUCOSE URINE NEGATIVE (NEGATIVE); KETONES URINE NEGATIVE (NEGATIVE); LEUKOCYTE ESTERASE URINE 1+ (NEGATIVE); NITRITE URINE NEGATIVE (NEGATIVE); OCCULT BLOOD URINE NEGATIVE (NEGATIVE); PH URINE 5.5 (4.5-8.0); PROTEIN URINE NEGATIVE (NEGATIVE); UROBILINOGEN URINE 0.2 E.U./dL (0.2-1.0)
[2024-05-18 21:08] LABS: CREATININE 1.6 mg/dL (0.6-1.0); GLUCOSE 102 mg/dL (70-105); UREA NITROGEN BLOOD 19 mg/dL (9-23)
[2024-05-18 21:10] LABS: ALANINE AMINOTRANSFERASE 20 IU/L (10-49); ALBUMIN 4.8 g/dL (3.2-4.8); ASPARTATE AMINOTRANSFERASE 20 IU/L (<34); BILIRUBIN TOTAL 0.3 mg/dL (0.1-1.0); PROTEIN TOTAL 8.2 g/dL (6.0-8.3)
[2024-05-18 21:24] LABS: BILIRUBIN DIRECT < 0.1 mg/dL (<=3.0)
[2024-05-18] MEDS: KETOROLAC 30MG/ML VIAL IM STA (21:26)
[2024-05-18 21:53] LABS: BACTERIA URINE 3+; RBC URINE 0-2 /hpf (0-2); SQUAMOUS EPITHELIAL CELL URINE 3+ /lpf (RARE/1+)
[2024-05-19] MEDS ORDERED: CEPH500C2 MT (00:58)
[2024-05-19 01:42] VITALS: BP 126/73; PULSE 99; RESP 16; TEMP 98.2
== END 2024-05-19 01:43 | disposition home or self-care (01) ==
LOC: ER 19:52
DX: N39.0 Urinary tract infection, site not specified (principal); J45.909 Unspecified asthma, uncomplicated; I10 Essential (primary) hypertension; I20.9 Angina pectoris, unspecified; Z85.9 Personal history of malignant neoplasm, unspecified; Z98.51 Tubal ligation status; Z79.899 Other long term (current) drug therapy
CPT/HCPCS: 80076; 80048; 81003; 83690; 85025; 36415; 74176; 96372; 99285; J1885; Z7610

== ENCOUNTER 2024-05-29 12:21 | Emergency (ER) | payer MEDICAID ==
[~2024-05-29] VITALS: Ht 157.5 cm; Wt 86.0 kg
[~2024-05-29 12:21] MED LIST changes: +CEPH500C2 MT
[2024-05-29 12:28] VITALS: O2SAT 98
[2024-05-29 16:17] LABS: BASOPHILS % 0.6 % (0.0-2.0); EOSINOPHILS % 4.2 % (0.0-5.0); HEMATOCRIT. 37.3 % (36.0-48.0); HEMOGLOBIN. 12.3 g/dL (12.0-16.0); LYMPHOCYTES % 33.5 % (20.0-50.0); MEAN CORPUSCULAR HEMOGLOBIN 30.7 pg (28.0-32.0); MEAN CORPUSCULAR HGB CONC 33.1 g/dL (31.0-37.0); MEAN PLATELET VOLUME 8.4 fl (7.4-10.4); MONOCYTES % 7.6 % (2.0-8.0); NEUTROPHILS % 54.1 % (40.0-76.0); PLATELET 298 x1000/uL (130-400); RED BLOOD CELL COUNT 4.01 mill/uL (4.2-5.4); RED CELL DISTRIBUTION WIDTH 15.8 % (11.6-14.6); WHITE BLOOD COUNT 6.1 x1000/uL (4.5-11.0)
[2024-05-29 17:42] VITALS: BP 159/92; PULSE 78; RESP 15; TEMP 98.3
== END 2024-05-29 17:45 | disposition home or self-care (01) ==
LOC: ER 12:21
DX: R04.0 Epistaxis (principal); J45.909 Unspecified asthma, uncomplicated; I10 Essential (primary) hypertension; Z79.899 Other long term (current) drug therapy; Z98.890 Other specified postprocedural states; Z98.51 Tubal ligation status; Z85.528 Personal history of other malignant neoplasm of kidney
CPT/HCPCS: 36415; 85025; 99283

== ENCOUNTER 2024-06-21 16:44 | Emergency (ER) | payer MEDICAID ==
[~2024-06-21] VITALS: Ht 162.6 cm; Wt 91.0 kg
[2024-06-21 17:00] VITALS: BP 135/73; PULSE 84; TEMP 98; O2SAT 98
[2024-06-21 18:15] VITALS: RESP 16
[2024-06-21] MEDS: KETOROLAC 30MG/ML VIAL IM STA (18:18)
[2024-06-21 18:19] LABS: CLARITY URINE CLOUDY (CLEAR); COLOR URINE YELLOW (YELLOW); GLUCOSE URINE NEGATIVE (NEGATIVE); KETONES URINE NEGATIVE (NEGATIVE); LEUKOCYTE ESTERASE URINE TRACE (NEGATIVE); NITRITE URINE NEGATIVE (NEGATIVE); OCCULT BLOOD URINE NEGATIVE (NEGATIVE); PH URINE 5.5 (4.5-8.0); PROTEIN URINE TRACE (NEGATIVE); UROBILINOGEN URINE 0.2 E.U./dL (0.2-1.0)
[2024-06-21 18:43] LABS: BASOPHILS % 0.8 % (0.0-2.0); EOSINOPHILS % 3.8 % (0.0-5.0); HEMATOCRIT. 37.7 % (36.0-48.0); HEMOGLOBIN. 12.4 g/dL (12.0-16.0); LYMPHOCYTES % 44.7 % (20.0-50.0); MEAN CORPUSCULAR HEMOGLOBIN 30.2 pg (28.0-32.0); MEAN CORPUSCULAR HGB CONC 32.8 g/dL (31.0-37.0); MEAN CORPUSCULAR VOLUME 92.1 fL (81.0-99.0); MEAN PLATELET VOLUME 8.4 fl (7.4-10.4); NEUTROPHILS % 43.7 % (40.0-76.0); PLATELET 289 x1000/uL (130-400); RED BLOOD CELL COUNT 4.09 mill/uL (4.2-5.4); RED CELL DISTRIBUTION WIDTH 15.9 % (11.6-14.6); WHITE BLOOD COUNT 5.4 x1000/uL (4.5-11.0)
[2024-06-21 18:50] LABS: POTASSIUM 3.5 mEq/L (3.5-5.1)
[2024-06-21 18:52] LABS: CALCIUM 9.7 mg/dL (8.7-10.4)
[2024-06-21 18:56] LABS: CREATININE 1.9 mg/dL (0.6-1.0)
[2024-06-21 19:36] LABS: BACTERIA URINE 1+; RBC URINE NONE SEEN /hpf (0-2); SQUAMOUS EPITHELIAL CELL URINE 1+ /lpf (RARE/1+)
[2024-06-21] MEDS ORDERED: IBUP-2029 MT (21:30)
== END 2024-06-21 21:47 | disposition home or self-care (01) ==
LOC: ER 16:44
DX: R10.9 Unspecified abdominal pain (principal); I10 Essential (primary) hypertension; J45.909 Unspecified asthma, uncomplicated; Z68.34 Body mass index [BMI] 34.0-34.9, adult; Z79.899 Other long term (current) drug therapy; Z79.82 Long term (current) use of aspirin; Z98.890 Other specified postprocedural states; Z98.51 Tubal ligation status
CPT/HCPCS: 99285; 74176; 80048; 81003; 81025; 85025; 36415; 96372; J1885

== ENCOUNTER 2024-07-02 12:26 | Emergency (ER) | payer MEDICAID ==
[~2024-07-02] VITALS: Ht 162.6 cm; Wt 98.0 kg
[2024-07-02 13:00] VITALS: PULSE 88; RESP 16; O2SAT 98
[2024-07-02] MEDS ORDERED: PREDNISONE 20MG TABLET PO ONE (13:00)
[2024-07-02 13:05] LABS: BASOPHILS % 0.6 % (0.0-2.0); DIFFERENTIAL COMMENT 0; EOSINOPHILS % 3.6 % (0.0-5.0); HEMATOCRIT. 37.2 % (36.0-48.0); HEMOGLOBIN. 12.4 g/dL (12.0-16.0); LYMPHOCYTES % 34.2 % (20.0-50.0); MEAN CORPUSCULAR HEMOGLOBIN 31.3 pg (28.0-32.0); MEAN CORPUSCULAR HGB CONC 33.3 g/dL (31.0-37.0); MEAN CORPUSCULAR VOLUME 93.9 fL (81.0-99.0); MEAN PLATELET VOLUME 8.8 fl (7.4-10.4); MONOCYTES % 7.7 % (2.0-8.0); NEUTROPHILS % 53.9 % (40.0-76.0); PLATELET 236 x1000/uL (130-400); RED BLOOD CELL COUNT 3.96 mill/uL (4.2-5.4); RED CELL DISTRIBUTION WIDTH 16.1 % (11.6-14.6); WHITE BLOOD COUNT 5.6 x1000/uL (4.5-11.0)
[2024-07-02 13:13] LABS: CHLORIDE 108 mEq/L (98-107); POTASSIUM 3.5 mEq/L (3.5-5.1); SODIUM 140 mEq/L (136-145)
[2024-07-02 13:14] LABS: CALCIUM 9.6 mg/dL (8.7-10.4); CARBON DIOXIDE 24 mEq/L (21-32)
[2024-07-02 13:19] LABS: CREATININE 1.7 mg/dL (0.6-1.0); GLUCOSE 105 mg/dL (70-105); UREA NITROGEN BLOOD 14 mg/dL (9-23)
[2024-07-02 13:26] LABS: HCG SCREEN NEGATIVE
[2024-07-02 13:28] LABS: TROPONIN I HIGH SENSITIVITY < 4 ng/L (3.0-34)
[2024-07-02] MEDS: IPRATROPIUM/ALBUTEROL 0.5-3(2.5)MG/3ML NEB HHN ONE (13:38)
[2024-07-02] MEDS: PREDNISONE 20MG TABLET PO NR (14:56)
[2024-07-02] MEDS: ASPIRIN 325MG EC TABLET PO ONE (20:59)
[2024-07-02 21:41] VITALS: BP 134/65; PULSE 62; RESP 16; TEMP 36.83628; O2SAT 99
[2024-07-02] MEDS ORDERED: [UNRECOGNIZED DRUG - CODE] INH (22:16)
[2024-07-02] MEDS ORDERED: P20 PO (22:17)
== END 2024-07-02 22:24 | disposition home or self-care (01) ==
LOC: ER 12:26
DX: J45.901 Unspecified asthma with (acute) exacerbation (principal); I10 Essential (primary) hypertension; Z79.899 Other long term (current) drug therapy; Z98.51 Tubal ligation status; Z98.890 Other specified postprocedural states
CPT/HCPCS: 80048; 84703; 83880; 85025; 85379; 84484; 36415; 71045; 94640; 93005; 99285; J7512; Z7610 ×3

== ENCOUNTER 2024-07-12 18:36 | Emergency (ER) | payer MEDICAID ==
[~2024-07-12] VITALS: Ht 167.6 cm; Wt 100.0 kg
[~2024-07-12 18:36] MED LIST changes: +P20 PO; +[UNRECOGNIZED DRUG - CODE] INH
[2024-07-12 18:48] VITALS: O2SAT 99
[2024-07-12 20:20] LABS: CHLORIDE 104 mEq/L (98-107); POTASSIUM 3.5 mEq/L (3.5-5.1); SODIUM 141 mEq/L (136-145)
[2024-07-12 20:21] LABS: CALCIUM 9.7 mg/dL (8.7-10.4); CARBON DIOXIDE 29 mEq/L (21-32)
[2024-07-12 20:24] LABS: BASOPHILS % 0.7 % (0.0-2.0); EOSINOPHILS % 3.2 % (0.0-5.0); HEMATOCRIT. 38.5 % (36.0-48.0); HEMOGLOBIN. 12.6 g/dL (12.0-16.0); MEAN CORPUSCULAR HEMOGLOBIN 30.7 pg (28.0-32.0); MEAN CORPUSCULAR HGB CONC 32.7 g/dL (31.0-37.0); MEAN CORPUSCULAR VOLUME 93.9 fL (81.0-99.0); MEAN PLATELET VOLUME 8.7 fl (7.4-10.4); MONOCYTES % 7.6 % (2.0-8.0); NEUTROPHILS % 54.5 % (40.0-76.0); PLATELET 271 x1000/uL (130-400); RED CELL DISTRIBUTION WIDTH 16.1 % (11.6-14.6); WHITE BLOOD COUNT 7.4 x1000/uL (4.5-11.0)
[2024-07-12 20:26] LABS: CREATININE 2.1 mg/dL (0.6-1.0); GLUCOSE 100 mg/dL (70-105); UREA NITROGEN BLOOD 22 mg/dL (9-23)
[2024-07-12 20:28] LABS: ALANINE AMINOTRANSFERASE 23 IU/L (10-49); ALBUMIN 4.6 g/dL (3.2-4.8); ASPARTATE AMINOTRANSFERASE 18 IU/L (<34)
[2024-07-12 20:29] LABS: BILIRUBIN TOTAL 0.2 mg/dL (0.1-1.0); PROTEIN TOTAL 7.7 g/dL (6.0-8.3)
[2024-07-12 20:36] LABS: BILIRUBIN DIRECT < 0.1 mg/dL (<=3.0)
[2024-07-12 20:48] LABS: HCG SCREEN NEGATIVE
[2024-07-12] MEDS ORDERED: POLY119P2 MT (21:20)
[2024-07-12 22:15] VITALS: BP 121/68; PULSE 74; RESP 17; TEMP 36.66960; O2SAT 99
== END 2024-07-12 22:15 | disposition home or self-care (01) ==
LOC: ER 18:36
DX: I12.9 Hypertensive chronic kidney disease with stage 1 through stage 4 chronic kidney disease, or unspecified chronic kidney disease (principal); R10.32 Left lower quadrant pain; N18.9 Chronic kidney disease, unspecified; J45.909 Unspecified asthma, uncomplicated; Z79.899 Other long term (current) drug therapy; Z98.51 Tubal ligation status; Z79.82 Long term (current) use of aspirin; Z79.52 Long term (current) use of systemic steroids; Z85.9 Personal history of malignant neoplasm, unspecified
CPT/HCPCS: 36415; 74176; 80048; 80076; 81025; 84703; 85025; 86850; 86900; 99284

== ENCOUNTER 2024-07-20 09:42 | Emergency (ER) | payer MEDICAID ==
[~2024-07-20] VITALS: Ht 154.9 cm; Wt 98.0 kg
[~2024-07-20 09:42] MED LIST changes: +POLY119P2 MT
[2024-07-20 09:50] VITALS: TEMP 98.3; O2SAT 98
[2024-07-20 11:53] LABS: CLARITY URINE TURBID (CLEAR); COLOR URINE YELLOW (YELLOW); GLUCOSE URINE NEGATIVE (NEGATIVE); KETONES URINE NEGATIVE (NEGATIVE); LEUKOCYTE ESTERASE URINE 1+ (NEGATIVE); NITRITE URINE NEGATIVE (NEGATIVE); OCCULT BLOOD URINE NEGATIVE (NEGATIVE); PH URINE 5.5 (4.5-8.0); PROTEIN URINE 2+ (NEGATIVE)
[2024-07-20 12:06] LABS: BACTERIA URINE 4+; SQUAMOUS EPITHELIAL CELL URINE 3+ /lpf (RARE/1+); YEAST URINE NONE SEEN
[2024-07-20] MEDS: IBUPROFEN 600MG TABLET PO ONE (13:14)
[2024-07-20 13:17] VITALS: BP 121/82; PULSE 68; RESP 14; O2SAT 98
== END 2024-07-20 13:32 | disposition home or self-care (01) ==
LOC: ER 09:42
DX: M54.9 Dorsalgia, unspecified (principal); J45.909 Unspecified asthma, uncomplicated; I10 Essential (primary) hypertension; K58.9 Irritable bowel syndrome, unspecified; Z79.899 Other long term (current) drug therapy; Z98.51 Tubal ligation status; Z86.711 Personal history of pulmonary embolism; Z98.890 Other specified postprocedural states
CPT/HCPCS: 81003; 81025; 99283

== ENCOUNTER 2024-08-23 09:20 | Emergency (ER) | payer MEDICAID ==
[~2024-08-23] VITALS: Ht 162.6 cm; Wt 98.4 kg
[2024-08-23 09:24] VITALS: BP 158/85; TEMP 98.7; O2SAT 98; O2SAT 99
[2024-08-23] MEDS: PREDNISONE 20MG TABLET PO STA (10:06)
[2024-08-23 10:12] VITALS: PULSE 62; RESP 18
[2024-08-23] MEDS: ALBUTEROL (0.083%) 2.5MG/3ML NEB HHN STA (10:12)
[2024-08-23] MEDS: IPRATROPIUM BROMIDE (0.02%) 0.5MG/2.5ML NEB HHN STA (10:13)
[2024-08-23] MEDS ORDERED: ALBU90AE INH (10:50)
[2024-08-23] MEDS ORDERED: P50 MT (10:51)
== END 2024-08-23 11:06 | disposition home or self-care (01) ==
LOC: ER 09:20
DX: J45.901 Unspecified asthma with (acute) exacerbation (principal); I10 Essential (primary) hypertension; Z79.899 Other long term (current) drug therapy; Z98.51 Tubal ligation status; Z98.890 Other specified postprocedural states
CPT/HCPCS: 71045; 94640; 99283; J7512; Z7610 ×3

== ENCOUNTER 2024-08-29 13:09 | Emergency (ER) | payer MEDICAID ==
[~2024-08-29] VITALS: Ht 157.5 cm; Wt 79.0 kg
[~2024-08-29 13:09] MED LIST changes: +ALBU90AE INH; +P50 MT
[2024-08-29 13:29] VITALS: BP 142/89; O2SAT 99
[2024-08-29] MEDS ORDERED: P50 MT (15:24)
[2024-08-29] MEDS ORDERED: ALBU90AE INH (15:24)
[2024-08-29] MEDS ORDERED: GUAI-450 MT (15:24)
[2024-08-29 15:37] VITALS: PULSE 79; RESP 16; TEMP 36.83628; O2SAT 99
== END 2024-08-29 15:37 | disposition home or self-care (01) ==
LOC: ER 13:09
DX: J40 Bronchitis, not specified as acute or chronic (principal); Z79.899 Other long term (current) drug therapy; Z79.82 Long term (current) use of aspirin; Z79.52 Long term (current) use of systemic steroids
CPT/HCPCS: 71045; 99283

== ENCOUNTER 2024-10-07 13:38 | Emergency (ER) | payer MEDICAID ==
[~2024-10-07] VITALS: Ht 167.6 cm; Wt 98.0 kg
[~2024-10-07 13:38] MED LIST changes: +GUAI-450 MT
[2024-10-07 13:45] VITALS: O2SAT 97
[2024-10-07] MEDS: DEXAMETHASONE 10 MG/ML VIAL PO ONE (17:47)
[2024-10-07 17:51] VITALS: BP 156/99; PULSE 70; RESP 18; TEMP 36.94740; O2SAT 97
== END 2024-10-07 17:53 | disposition home or self-care (01) ==
LOC: ER 13:38
DX: R05.9 Cough, unspecified (principal); I10 Essential (primary) hypertension; J45.909 Unspecified asthma, uncomplicated; Z79.899 Other long term (current) drug therapy
CPT/HCPCS: 87804 ×2; 71045; 99284; J1100; Z7610

== ENCOUNTER 2024-10-10 18:39 | Emergency (ER) | payer MEDICAID ==
[~2024-10-10] VITALS: Ht 162.6 cm; Wt 98.0 kg
[2024-10-11] MEDS: IPRATROPIUM/ALBUTEROL 0.5-3(2.5)MG/3ML NEB HHN NR (01:45)
[2024-10-11 01:57] VITALS: PULSE 82; RESP 16; O2SAT 99
[2024-10-11] MEDS: IPRATROPIUM/ALBUTEROL 0.5-3(2.5)MG/3ML NEB HHN ONE (01:57)
[2024-10-11] MEDS ORDERED: ALBU18HF2 IH (02:45)
[2024-10-11] MEDS ORDERED: P50 MT (02:45)
[2024-10-11 03:12] VITALS: BP 144/90; PULSE 81; RESP 19; TEMP 36.94740; O2SAT 99
== END 2024-10-11 07:42 | disposition home or self-care (01) ==
LOC: ER 18:39
DX: J45.901 Unspecified asthma with (acute) exacerbation (principal); I10 Essential (primary) hypertension; Z79.899 Other long term (current) drug therapy; Z79.82 Long term (current) use of aspirin; Z79.52 Long term (current) use of systemic steroids
CPT/HCPCS: 71045; 99283; 94640; Z7610 ×3

== ENCOUNTER 2024-10-17 18:16 | Emergency (ER) | payer MEDICAID ==
[~2024-10-17] VITALS: Ht 162.6 cm; Wt 53.0 kg
[~2024-10-17 18:16] MED LIST changes: +ALBU18HF2 IH
[2024-10-17 18:37] VITALS: BP 129/93; PULSE 87; RESP 16; TEMP 98.2; O2SAT 97
[2024-10-17] MEDS ORDERED: AZIT250T12 MT (22:32)
== END 2024-10-18 07:35 | disposition home or self-care (01) ==
LOC: ER 18:16
DX: R05.9 Cough, unspecified (principal); I10 Essential (primary) hypertension; J45.909 Unspecified asthma, uncomplicated; Z98.51 Tubal ligation status; Z90.5 Acquired absence of kidney; Z79.899 Other long term (current) drug therapy
CPT/HCPCS: 71045; 99283

== ENCOUNTER 2024-10-24 11:54 | Emergency (ER) | payer MEDICAID ==
[~2024-10-24] VITALS: Ht 167.6 cm; Wt 105.0 kg
[~2024-10-24 11:54] MED LIST changes: +AZIT250T12 MT
[2024-10-24 12:11] VITALS: BP 151/92; PULSE 84; RESP 18; TEMP 98.1; O2SAT 97
[2024-10-24 12:53] LABS: BASOPHILS % 0.7 % (0.0-2.0); EOSINOPHILS % 6.2 % (0.0-5.0); HEMATOCRIT. 37.5 % (36.0-48.0); HEMOGLOBIN. 12.3 g/dL (12.0-16.0); LYMPHOCYTES % 31.5 % (20.0-50.0); MEAN CORPUSCULAR HEMOGLOBIN 30.7 pg (28.0-32.0); MEAN CORPUSCULAR HGB CONC 32.9 g/dL (31.0-37.0); MEAN CORPUSCULAR VOLUME 93.4 fL (81.0-99.0); MEAN PLATELET VOLUME 8.9 fl (7.4-10.4); MONOCYTES % 6.2 % (2.0-8.0); NEUTROPHILS % 55.4 % (40.0-76.0); PLATELET 330 x1000/uL (130-400); RED BLOOD CELL COUNT 4.01 mill/uL (4.2-5.4); RED CELL DISTRIBUTION WIDTH 15.8 % (11.6-14.6); WHITE BLOOD COUNT 6.1 x1000/uL (4.5-11.0)
[2024-10-24 13:07] LABS: CHLORIDE 110 mEq/L (98-107); POTASSIUM 3.9 mEq/L (3.5-5.1); SODIUM 144 mEq/L (136-145)
[2024-10-24 13:08] LABS: CALCIUM 9.6 mg/dL (8.7-10.4); CARBON DIOXIDE 28 mEq/L (21-32)
[2024-10-24 13:13] LABS: CREATININE 1.7 mg/dL (0.6-1.0); GLUCOSE 97 mg/dL (70-105); UREA NITROGEN BLOOD 18 mg/dL (9-23)
[2024-10-24 13:27] LABS: TROPONIN I HIGH SENSITIVITY < 4 ng/L (3.0-34)
[2024-10-24 15:08] LABS: ALANINE AMINOTRANSFERASE 15 IU/L (10-49); ALBUMIN 4.1 g/dL (3.2-4.8); ASPARTATE AMINOTRANSFERASE 19 IU/L (<34); BILIRUBIN TOTAL 0.3 mg/dL (0.1-1.0); PROTEIN TOTAL 7.2 g/dL (6.0-8.3)
[2024-10-24 15:29] LABS: BILIRUBIN DIRECT < 0.1 mg/dL (<=3.0)
== END 2024-10-24 16:04 | disposition home or self-care (01) ==
LOC: ER 11:54
DX: R07.89 Other chest pain (principal); I10 Essential (primary) hypertension; J45.909 Unspecified asthma, uncomplicated; Z79.899 Other long term (current) drug therapy; Z98.890 Other specified postprocedural states; Z98.51 Tubal ligation status; Z79.82 Long term (current) use of aspirin
CPT/HCPCS: 36415; 71045; 80048; 80076; 84484; 85025; 93005; 99285

== ENCOUNTER 2024-10-27 17:03 | Emergency (ER) | payer MEDICAID ==
[~2024-10-27] VITALS: Ht 162.6 cm; Wt 98.0 kg
[2024-10-27 17:24] VITALS: BP 139/90; TEMP 36.83628; O2SAT 98
[2024-10-27] MEDS: DEXAMETHASONE 10 MG/ML VIAL PO ONE (21:00)
[2024-10-27 22:10] VITALS: PULSE 78; RESP 18
[2024-10-27] MEDS: IPRATROPIUM/ALBUTEROL 0.5-3(2.5)MG/3ML NEB HHN ONE (22:10)
[2024-10-27] MEDS ORDERED: P50 MT (22:43)
[2024-10-27] MEDS ORDERED: ALBU18HF2 IH (22:44)
[2024-10-27 23:10] VITALS: PULSE 77; RESP 18
[2024-10-27] MEDS: ALBUTEROL (0.083%) 2.5MG/3ML NEB HHN ONE (23:11)
== END 2024-10-27 23:52 | disposition home or self-care (01) ==
LOC: ER 17:03
DX: J45.901 Unspecified asthma with (acute) exacerbation (principal); I10 Essential (primary) hypertension; K58.9 Irritable bowel syndrome, unspecified; Z98.51 Tubal ligation status; Z86.711 Personal history of pulmonary embolism; Z79.82 Long term (current) use of aspirin; Z79.52 Long term (current) use of systemic steroids; Z79.899 Other long term (current) drug therapy
CPT/HCPCS: 71045; 94640; 99284; J1100; Z7610 ×4

== ENCOUNTER 2024-11-08 13:11 | Emergency (ER) | payer MEDICAID ==
[~2024-11-08] VITALS: Ht 162.6 cm; Wt 98.4 kg
[2024-11-08 13:14] VITALS: O2SAT 100
[2024-11-08 13:21] VITALS: BP 134/86; PULSE 100; RESP 16; TEMP 98.6; O2SAT 99
[2024-11-08 13:48] LABS: CHLORIDE 108 mEq/L (98-107); POTASSIUM 3.6 mEq/L (3.5-5.1); SODIUM 143 mEq/L (136-145)
[2024-11-08 13:49] LABS: CALCIUM 9.8 mg/dL (8.7-10.4); CARBON DIOXIDE 25 mEq/L (21-32)
[2024-11-08 13:54] LABS: CREATININE 1.7 mg/dL (0.6-1.0); GLUCOSE 107 mg/dL (70-105); UREA NITROGEN BLOOD 20 mg/dL (9-23)
[2024-11-08 13:56] LABS: ALANINE AMINOTRANSFERASE 23 IU/L (10-49); ALBUMIN 4.4 g/dL (3.2-4.8); ASPARTATE AMINOTRANSFERASE 18 IU/L (<34); BASOPHILS % 1.4 % (0.0-2.0); BILIRUBIN TOTAL 0.4 mg/dL (0.1-1.0); EOSINOPHILS % 4.1 % (0.0-5.0); HEMATOCRIT. 39.8 % (36.0-48.0); HEMOGLOBIN. 13.1 g/dL (12.0-16.0); LYMPHOCYTES % 32.8 % (20.0-50.0); MEAN CORPUSCULAR HEMOGLOBIN 30.7 pg (28.0-32.0); MEAN CORPUSCULAR HGB CONC 32.8 g/dL (31.0-37.0); MEAN CORPUSCULAR VOLUME 93.6 fL (81.0-99.0); MEAN PLATELET VOLUME 8.8 fl (7.4-10.4); MONOCYTES % 6.7 % (2.0-8.0); PLATELET 321 x1000/uL (130-400); PROTEIN TOTAL 7.3 g/dL (6.0-8.3); RED BLOOD CELL COUNT 4.26 mill/uL (4.2-5.4); RED CELL DISTRIBUTION WIDTH 15.9 % (11.6-14.6); WHITE BLOOD COUNT 6.6 x1000/uL (4.5-11.0)
[2024-11-08 14:37] LABS: BILIRUBIN DIRECT < 0.1 mg/dL (<=3.0)
[2024-11-08 15:16] LABS: CLARITY URINE CLOUDY (CLEAR); COLOR URINE YELLOW (YELLOW); GLUCOSE URINE NEGATIVE (NEGATIVE); KETONES URINE NEGATIVE (NEGATIVE); LEUKOCYTE ESTERASE URINE 2+ (NEGATIVE); NITRITE URINE POSITIVE (NEGATIVE); OCCULT BLOOD URINE NEGATIVE (NEGATIVE); PH URINE 6.5 (4.5-8.0); PROTEIN URINE NEGATIVE (NEGATIVE); SPECIFIC GRAVITY URINE 1.016 (1.005-1.030); UROBILINOGEN URINE 0.2 E.U./dL (0.2-1.0)
[2024-11-08 17:28] LABS: RBC URINE 0-2 /hpf (0-2)
[2024-11-08 17:29] LABS: BACTERIA URINE 2+; SQUAMOUS EPITHELIAL CELL URINE 1+ /lpf (RARE/1+)
[2024-11-08] MEDS: CEFTRIAXONE SODIUM 1G VIAL IM ONE (20:03)
[2024-11-08] MEDS ORDERED: SULF1TAB48 MT (20:12)
[2024-11-08] MEDS ORDERED: ACET-2708 MT (20:13)
[2024-11-08] MEDS ORDERED: CEFP200T13 MT (20:24)
== END 2024-11-08 20:20 | disposition home or self-care (01) ==
LOC: ER 13:11
DX: N39.0 Urinary tract infection, site not specified (principal); I12.9 Hypertensive chronic kidney disease with stage 1 through stage 4 chronic kidney disease, or unspecified chronic kidney disease; N18.9 Chronic kidney disease, unspecified; J45.909 Unspecified asthma, uncomplicated; Z98.51 Tubal ligation status; Z79.899 Other long term (current) drug therapy; Z79.82 Long term (current) use of aspirin; Z79.52 Long term (current) use of systemic steroids
CPT/HCPCS: 80076; 80048; 81003; 81025; 83690; 85025; 87086; 87186; 87077; 36415; 74176; 96372; 99285; J0696; Z7610

== ENCOUNTER 2024-12-19 12:22 | Emergency (ER) | payer MEDICAID ==
[~2024-12-19] VITALS: Ht 162.6 cm; Wt 98.0 kg
[~2024-12-19 12:22] MED LIST changes: +CEFP200T13 MT
[2024-12-19 12:42] VITALS: O2SAT 100
[2024-12-19] MEDS: HYDROCODONE/ACETAMINOPHEN 10/325MG TABLET PO ONE (13:03)
[2024-12-19] MEDS: DICYCLOMINE HCL 10MG CAPSULE PO ONE (13:03)
[2024-12-19 13:16] LABS: CHLORIDE 108 mEq/L (98-107); POTASSIUM 3.7 mEq/L (3.5-5.1); SODIUM 141 mEq/L (136-145)
[2024-12-19 13:17] LABS: CALCIUM 9.1 mg/dL (8.7-10.4); CARBON DIOXIDE 24 mEq/L (21-32)
[2024-12-19 13:22] LABS: CREATININE 1.4 mg/dL (0.6-1.0); GLUCOSE 94 mg/dL (70-105); UREA NITROGEN BLOOD 13 mg/dL (9-23)
[2024-12-19 13:24] LABS: ALANINE AMINOTRANSFERASE 11 IU/L (10-49); ALBUMIN 3.9 g/dL (3.2-4.8); ASPARTATE AMINOTRANSFERASE 16 IU/L (<34); BILIRUBIN TOTAL 0.4 mg/dL (0.1-1.0); PROTEIN TOTAL 7.1 g/dL (6.0-8.3)
[2024-12-19 13:25] LABS: BILIRUBIN DIRECT < 0.1 mg/dL (<=3.0)
[2024-12-19 13:40] LABS: BASOPHILS % 0.7 % (0.0-2.0); HEMATOCRIT. 36.7 % (36.0-48.0); HEMOGLOBIN. 11.8 g/dL (12.0-16.0); LYMPHOCYTES % 32.4 % (20.0-50.0); MEAN CORPUSCULAR HEMOGLOBIN 29.8 pg (28.0-32.0); MEAN CORPUSCULAR HGB CONC 32.1 g/dL (31.0-37.0); MEAN CORPUSCULAR VOLUME 92.7 fL (81.0-99.0); MONOCYTES % 6.1 % (2.0-8.0); NEUTROPHILS % 54.8 % (40.0-76.0); PLATELET 255 x1000/uL (130-400); RED BLOOD CELL COUNT 3.96 mill/uL (4.2-5.4); RED CELL DISTRIBUTION WIDTH 16.4 % (11.6-14.6); WHITE BLOOD COUNT 6.4 x1000/uL (4.5-11.0)
[2024-12-19 14:51] LABS: CLARITY URINE CLEAR (CLEAR); COLOR URINE YELLOW (YELLOW); GLUCOSE URINE NEGATIVE (NEGATIVE); KETONES URINE NEGATIVE (NEGATIVE); LEUKOCYTE ESTERASE URINE NEGATIVE (NEGATIVE); NITRITE URINE NEGATIVE (NEGATIVE); OCCULT BLOOD URINE NEGATIVE (NEGATIVE); PH URINE 5.5 (4.5-8.0); PROTEIN URINE TRACE (NEGATIVE); SPECIFIC GRAVITY URINE 1.024 (1.005-1.030); UROBILINOGEN URINE 0.2 E.U./dL (0.2-1.0)
[2024-12-19 15:20] LABS: BACTERIA URINE 1+; RBC URINE 0-2 /hpf (0-2); SQUAMOUS EPITHELIAL CELL URINE 2+ /lpf (RARE/1+); WBC URINE 0-2 /hpf (0-2); YEAST URINE NONE SEEN
[2024-12-19] MEDS ORDERED: DOCU-422 MT (16:16)
[2024-12-19] MEDS ORDERED: DICY-18 MT (16:16)
[2024-12-19 16:28] VITALS: BP 158/75; PULSE 59; RESP 18; TEMP 37.1; O2SAT 100
[2024-12-20] MEDS ORDERED: GUAI237L83 MT (11:05)
== END 2024-12-19 16:28 | disposition home or self-care (01) ==
LOC: ER 12:22
DX: R10.9 Unspecified abdominal pain (principal); I10 Essential (primary) hypertension; J45.909 Unspecified asthma, uncomplicated; N28.9 Disorder of kidney and ureter, unspecified; Z79.899 Other long term (current) drug therapy; Z79.82 Long term (current) use of aspirin; Z98.890 Other specified postprocedural states; Z98.51 Tubal ligation status
CPT/HCPCS: 36415; 74176; 80048; 80076; 81003; 85025; 99284

== ENCOUNTER 2024-12-20 09:19 | Emergency (ER) | payer MEDICAID ==
[~2024-12-20] VITALS: Ht 162.6 cm; Wt 98.4 kg
[~2024-12-20 09:19] MED LIST changes: +DICY-18 MT; +DOCU-422 MT
[2024-12-20 09:24] VITALS: O2SAT 100
[2024-12-20 09:27] VITALS: BP 139/90; TEMP 36.8; O2SAT 99
[2024-12-20 09:56] LABS: POTASSIUM 4.1 mEq/L (3.5-5.1)
[2024-12-20 09:57] LABS: CALCIUM 9.2 mg/dL (8.7-10.4)
[2024-12-20 10:02] LABS: CREATININE 1.5 mg/dL (0.6-1.0)
[2024-12-20 10:13] LABS: BASOPHILS % 0.6 % (0.0-2.0); EOSINOPHILS % 5.6 % (0.0-5.0); HEMATOCRIT. 35.9 % (36.0-48.0); HEMOGLOBIN. 11.7 g/dL (12.0-16.0); LYMPHOCYTES % 29.1 % (20.0-50.0); MEAN CORPUSCULAR HEMOGLOBIN 30.2 pg (28.0-32.0); MEAN CORPUSCULAR HGB CONC 32.6 g/dL (31.0-37.0); MEAN CORPUSCULAR VOLUME 92.7 fL (81.0-99.0); MEAN PLATELET VOLUME 8.8 fl (7.4-10.4); MONOCYTES % 8.8 % (2.0-8.0); NEUTROPHILS % 55.9 % (40.0-76.0); PLATELET 267 x1000/uL (130-400); RED BLOOD CELL COUNT 3.87 mill/uL (4.2-5.4); RED CELL DISTRIBUTION WIDTH 16.3 % (11.6-14.6); WHITE BLOOD COUNT 5.4 x1000/uL (4.5-11.0)
[2024-12-20 10:26] VITALS: PULSE 60; RESP 18
[2024-12-20] MEDS: ALBUTEROL (0.083%) 2.5MG/3ML NEB HHN STA (10:26)
[2024-12-20] MEDS: IPRATROPIUM BROMIDE (0.02%) 0.5MG/2.5ML NEB HHN STA (10:26)
[2024-12-20] MEDS: BENZONATATE 100MG CAPSULE PO ONE (10:50)
[2024-12-20] MEDS ORDERED: GUAI237L83 MT (11:05)
== END 2024-12-20 12:21 | disposition home or self-care (01) ==
LOC: ER 09:19
DX: B34.9 Viral infection, unspecified (principal); I10 Essential (primary) hypertension; J45.901 Unspecified asthma with (acute) exacerbation; Z79.52 Long term (current) use of systemic steroids; Z79.82 Long term (current) use of aspirin; Z79.899 Other long term (current) drug therapy; Z98.51 Tubal ligation status
CPT/HCPCS: 80048; 85025; 36415; 71045; 94640; 93005; 99285; Z7610; 94070

== ENCOUNTER 2025-01-05 12:52 | Emergency (ER) | payer MEDICAID ==
[~2025-01-05] VITALS: Ht 157.5 cm; Wt 82.0 kg
[~2025-01-05 12:52] MED LIST changes: +GUAI237L83 MT
[2025-01-05 13:04] VITALS: O2SAT 99
[2025-01-05 14:58] LABS: BASOPHILS % 0.9 % (0.0-2.0); EOSINOPHILS % 7.5 % (0.0-5.0); HEMATOCRIT. 40.8 % (36.0-48.0); HEMOGLOBIN. 12.9 g/dL (12.0-16.0); LYMPHOCYTES % 32.9 % (20.0-50.0); MEAN CORPUSCULAR HEMOGLOBIN 29.6 pg (28.0-32.0); MEAN CORPUSCULAR HGB CONC 31.6 g/dL (31.0-37.0); MEAN CORPUSCULAR VOLUME 93.7 fL (81.0-99.0); MEAN PLATELET VOLUME 9.1 fl (7.4-10.4); MONOCYTES % 7.2 % (2.0-8.0); NEUTROPHILS % 51.5 % (40.0-76.0); PLATELET 341 x1000/uL (130-400); RED BLOOD CELL COUNT 4.36 mill/uL (4.2-5.4); RED CELL DISTRIBUTION WIDTH 16.3 % (11.6-14.6); WHITE BLOOD COUNT 4.7 x1000/uL (4.5-11.0)
[2025-01-05 15:01] LABS: CALCIUM 9.3 mg/dL (8.7-10.4)
[2025-01-05 15:02] LABS: CLARITY URINE CLOUDY (CLEAR); COLOR URINE YELLOW (YELLOW); GLUCOSE URINE NEGATIVE (NEGATIVE); KETONES URINE TRACE (NEGATIVE); LEUKOCYTE ESTERASE URINE TRACE (NEGATIVE); NITRITE URINE NEGATIVE (NEGATIVE); OCCULT BLOOD URINE NEGATIVE (NEGATIVE); PH URINE 5.5 (4.5-8.0); PROTEIN URINE TRACE (NEGATIVE); SPECIFIC GRAVITY URINE 1.027 (1.005-1.030)
[2025-01-05 15:06] LABS: CREATININE 1.4 mg/dL (0.6-1.0)
[2025-01-05 15:16] LABS: BACTERIA URINE 1+; RBC URINE 0-2 /hpf (0-2); SQUAMOUS EPITHELIAL CELL URINE 3+ /lpf (RARE/1+); YEAST URINE NONE SEEN
[2025-01-05] MEDS: OXYCODONE HCL/ACETAMINOPHEN 5/325MG TABLET PO NR (16:39)
[2025-01-05 17:35] VITALS: BP 134/80; PULSE 60; RESP 16; TEMP 36.8; O2SAT 99
== END 2025-01-05 17:37 | disposition home or self-care (01) ==
LOC: ER 12:52
DX: R10.30 Lower abdominal pain, unspecified (principal); I10 Essential (primary) hypertension; E78.00 Pure hypercholesterolemia, unspecified; J45.909 Unspecified asthma, uncomplicated; Z79.899 Other long term (current) drug therapy; Z79.82 Long term (current) use of aspirin; Z79.52 Long term (current) use of systemic steroids; Z98.51 Tubal ligation status; Z97.5 Presence of (intrauterine) contraceptive device; Z98.890 Other specified postprocedural states
CPT/HCPCS: 36415; 74176; 80048; 81003; 85025; 99284

== ENCOUNTER 2025-01-20 07:26 | Emergency (ER) | payer MEDICARE, MEDICAID ==
[~2025-01-20] VITALS: Ht 167.6 cm; Wt 100.0 kg
[2025-01-20 07:34] VITALS: O2SAT 99
[2025-01-20 07:50] LABS: BASOPHILS % 0.8 % (0.0-2.0); EOSINOPHILS % 5.3 % (0.0-5.0); HEMATOCRIT. 38.9 % (36.0-48.0); HEMOGLOBIN. 12.6 g/dL (12.0-16.0); LYMPHOCYTES % 31.9 % (20.0-50.0); MEAN CORPUSCULAR HEMOGLOBIN 30.2 pg (28.0-32.0); MEAN CORPUSCULAR HGB CONC 32.5 g/dL (31.0-37.0); MEAN PLATELET VOLUME 8.3 fl (7.4-10.4); MONOCYTES % 7.6 % (2.0-8.0); NEUTROPHILS % 54.4 % (40.0-76.0); PLATELET 299 x1000/uL (130-400); RED BLOOD CELL COUNT 4.18 mill/uL (4.2-5.4); RED CELL DISTRIBUTION WIDTH 16.3 % (11.6-14.6); WHITE BLOOD COUNT 5.7 x1000/uL (4.5-11.0)
[2025-01-20 07:59] LABS: CHLORIDE 108 mEq/L (98-107); SODIUM 143 mEq/L (136-145)
[2025-01-20 08:00] LABS: CARBON DIOXIDE 26 mEq/L (21-32)
[2025-01-20 08:01] LABS: CALCIUM 9.7 mg/dL (8.7-10.4)
[2025-01-20 08:05] LABS: CREATININE 1.5 mg/dL (0.6-1.0)
[2025-01-20 08:06] LABS: GLUCOSE 100 mg/dL (70-105); UREA NITROGEN BLOOD 19 mg/dL (9-23)
[2025-01-20 08:45] LABS: TROPONIN I HIGH SENSITIVITY < 4 ng/L (3.0-34)
[2025-01-20] MEDS ORDERED: ALBU18HF2 IH (09:07)
[2025-01-20 09:21] VITALS: BP 132/84; PULSE 80; RESP 18; TEMP 36.7; O2SAT 98
== END 2025-01-20 09:23 | disposition home or self-care (01) ==
LOC: ER 07:26
DX: R07.89 Other chest pain (principal); J45.909 Unspecified asthma, uncomplicated; E78.00 Pure hypercholesterolemia, unspecified; I10 Essential (primary) hypertension; Z79.52 Long term (current) use of systemic steroids; Z79.82 Long term (current) use of aspirin; Z79.899 Other long term (current) drug therapy; Z98.51 Tubal ligation status
CPT/HCPCS: 36415; 71045; 80048; 81025; 84484; 85025; 93005; 99285

== ENCOUNTER → 2025-01-28 | Emergency (ER) | payer MEDICARE, MEDICAID ==
[~2025-01-28] VITALS: Ht 162.6 cm; Wt 98.0 kg
[~2025-01-28] MED LIST changes: +LACT10SO81 MT
[2025-01-28 17:31] VITALS: O2SAT 98
[2025-01-28 17:48] VITALS: BP 137/88; TEMP 36.9
[2025-01-28] MEDS: PREDNISONE 20MG TABLET PO ONE (18:49)
[2025-01-28 20:14] VITALS: PULSE 75; RESP 20; O2SAT 95
[2025-01-28] MEDS: IPRATROPIUM/ALBUTEROL 0.5-3(2.5)MG/3ML NEB HHN ONE ×2 (20:14→20:40)
== END | disposition home or self-care (01) ==
LOC: ER 17:24
DX: J45.901 Unspecified asthma with (acute) exacerbation (principal); E78.00 Pure hypercholesterolemia, unspecified; I10 Essential (primary) hypertension; Z79.899 Other long term (current) drug therapy; Z79.82 Long term (current) use of aspirin; Z98.51 Tubal ligation status; Z79.52 Long term (current) use of systemic steroids
CPT/HCPCS: 99283; 94640; J7512

== ENCOUNTER 2025-02-06 17:58 | Emergency (ER) | payer MEDICARE, MEDICAID ==
[~2025-02-06] VITALS: Ht 167.6 cm; Wt 98.4 kg
[~2025-02-06 17:58] MED LIST changes: -LACT10SO81 MT
[2025-02-06 18:07] VITALS: BP 128/77; PULSE 86; RESP 16; TEMP 36.7; O2SAT 99
[2025-02-06 20:05] LABS: TROPONIN I HIGH SENSITIVITY < 4 ng/L (3.0-34)
[2025-02-06] MEDS ORDERED: LACT10SO81 MT (20:42)
== END 2025-02-06 21:17 | disposition home or self-care (01) ==
LOC: ER 17:58
DX: R07.89 Other chest pain (principal); I10 Essential (primary) hypertension; N28.9 Disorder of kidney and ureter, unspecified; E78.00 Pure hypercholesterolemia, unspecified; J45.909 Unspecified asthma, uncomplicated; Z79.82 Long term (current) use of aspirin; Z79.899 Other long term (current) drug therapy; Z98.890 Other specified postprocedural states; Z98.51 Tubal ligation status
CPT/HCPCS: 36415; 71045; 84484; 99284

== ENCOUNTER 2025-03-12 17:33 | Emergency (ER) | payer MEDICARE, MEDICAID ==
[~2025-03-12] VITALS: Ht 167.6 cm; Wt 98.0 kg
[~2025-03-12 17:33] MED LIST changes: -ACET-2708 MT; +ALBU05 NEB; -ALBU18HF2 IH; -ALBU6.7H15 INH; -ALBU90AE INH; -AMOX1TAB16 MT; -ASPI-1160 PO; -AZIT250T12 MT; -CEFP200T13 MT; -CEPH500C2 MT; +CEPH500T MT; -DEXT15DR5 LEFTEYE; -DICY-18 MT; -DOCU-422 MT; -FERR325T6 MT; -GUAI-450 MT; -GUAI237L83 MT; -HYDR12.54 MT; -IBUP-2029 MT; +LOSA25TA26 MT; -LOSA50TA41 MT; -P20 PO; -P50 MT; -POLY119P2 MT; -[UNRECOGNIZED DRUG - CODE] INH
[2025-03-12 17:38] VITALS: PULSE 87; RESP 14; O2SAT 98
[2025-03-12 17:43] VITALS: BP 145/91; TEMP 36.6; O2SAT 98
[2025-03-12 18:43] LABS: BASOPHILS % 0.6 % (0.0-2.0); EOSINOPHILS % 2.8 % (0.0-5.0); HEMATOCRIT. 36.5 % (36.0-48.0); HEMOGLOBIN. 11.9 g/dL (12.0-16.0); LYMPHOCYTES % 40.6 % (20.0-50.0); MEAN CORPUSCULAR HEMOGLOBIN 30.4 pg (28.0-32.0); MEAN CORPUSCULAR HGB CONC 32.7 g/dL (31.0-37.0); MEAN CORPUSCULAR VOLUME 92.8 fL (81.0-99.0); MONOCYTES % 7.6 % (2.0-8.0); NEUTROPHILS % 48.4 % (40.0-76.0); PLATELET 280 x1000/uL (130-400); RED BLOOD CELL COUNT 3.93 mill/uL (4.2-5.4); RED CELL DISTRIBUTION WIDTH 15.7 % (11.6-14.6)
[2025-03-12 18:54] LABS: CHLORIDE 111 mEq/L (98-107); POTASSIUM 4.2 mEq/L (3.5-5.1); SODIUM 144 mEq/L (136-145)
[2025-03-12 18:55] LABS: CALCIUM 9.2 mg/dL (8.7-10.4); CARBON DIOXIDE 26 mEq/L (21-32)
[2025-03-12 19:00] LABS: CREATININE 1.7 mg/dL (0.6-1.0); GLUCOSE 105 mg/dL (70-105); UREA NITROGEN BLOOD 17 mg/dL (9-23)
[2025-03-12 19:05] LABS: TROPONIN I HIGH SENSITIVITY < 4 ng/L (3.0-34)
== END 2025-03-12 21:28 | disposition home or self-care (01) ==
LOC: ER 17:33
DX: R07.89 Other chest pain (principal); I10 Essential (primary) hypertension; E78.00 Pure hypercholesterolemia, unspecified; J45.909 Unspecified asthma, uncomplicated; N28.9 Disorder of kidney and ureter, unspecified; Z79.899 Other long term (current) drug therapy; Z98.890 Other specified postprocedural states; Z98.51 Tubal ligation status
CPT/HCPCS: 36415; 71045; 80048; 84484; 85025; 93005; 99285

== ENCOUNTER 2025-03-19 13:00 | Emergency (ER) | payer BC, MEDICAID ==
[~2025-03-19] VITALS: Ht 167.6 cm; Wt 133.0 kg
[2025-03-19 13:06] VITALS: O2SAT 95
[2025-03-19 13:16] VITALS: BP 125/83; PULSE 75; RESP 18; TEMP 36.6; O2SAT 97
[2025-03-19 13:35] LABS: CLARITY URINE CLEAR (CLEAR); COLOR URINE YELLOW (YELLOW); GLUCOSE URINE NEGATIVE (NEGATIVE); KETONES URINE NEGATIVE (NEGATIVE); LEUKOCYTE ESTERASE URINE TRACE (NEGATIVE); NITRITE URINE NEGATIVE (NEGATIVE); OCCULT BLOOD URINE NEGATIVE (NEGATIVE); PROTEIN URINE NEGATIVE (NEGATIVE); SPECIFIC GRAVITY URINE 1.017 (1.005-1.030)
[2025-03-19] MEDS ORDERED: CEPH500C2 MT (13:45)
[2025-03-19 13:50] LABS: SQUAMOUS EPITHELIAL CELL URINE 2+ /lpf (RARE/1+)
[2025-03-19 13:51] LABS: BACTERIA URINE 1+; WBC URINE 0-2 /hpf (0-2)
[2025-03-19 13:52] LABS: RBC URINE NONE SEEN /hpf (0-2)
[2025-05-25] MEDS ORDERED: CEPH500C2 MT (13:07)
== END 2025-03-19 14:00 | disposition home or self-care (01) ==
LOC: ER 13:00
DX: N39.0 Urinary tract infection, site not specified (principal); E78.00 Pure hypercholesterolemia, unspecified; I10 Essential (primary) hypertension; J45.909 Unspecified asthma, uncomplicated; N28.9 Disorder of kidney and ureter, unspecified; Z79.899 Other long term (current) drug therapy; Z98.890 Other specified postprocedural states; Z98.51 Tubal ligation status
CPT/HCPCS: 81003; 99283

== ENCOUNTER 2025-03-21 19:07 | Emergency (ER) | payer BC, MEDICAID ==
[~2025-03-21] VITALS: Ht 167.6 cm; Wt 93.0 kg
[~2025-03-21 19:07] MED LIST changes: +CEPH500C2 MT
[2025-03-21 19:12] VITALS: TEMP 36.8; O2SAT 98
[2025-03-21 19:33] LABS: CLARITY URINE CLOUDY (CLEAR); COLOR URINE YELLOW (YELLOW); GLUCOSE URINE NEGATIVE (NEGATIVE); KETONES URINE NEGATIVE (NEGATIVE); LEUKOCYTE ESTERASE URINE 3+ (NEGATIVE); NITRITE URINE NEGATIVE (NEGATIVE); OCCULT BLOOD URINE NEGATIVE (NEGATIVE); PROTEIN URINE NEGATIVE (NEGATIVE); SPECIFIC GRAVITY URINE 1.017 (1.005-1.030); UROBILINOGEN URINE 0.2 E.U./dL (0.2-1.0)
[2025-03-21 19:33] LABS: HEMATOCRIT 37.6 % (36.0-48.0); HEMOGLOBIN 12.4 g/dL (12.0-16.0); MEAN CORPUSCULAR HEMOGLOBIN 30.3 pg (28.0-32.0); MEAN CORPUSCULAR HGB CONC 33.1 g/dL (31.0-37.0); MEAN CORPUSCULAR VOLUME 91.5 fL (81.0-99.0); PLATELET 249 x1000/uL (130-400); RED BLOOD CELL COUNT 4.11 mill/uL (4.2-5.4); RED CELL DISTRIBUTION WIDTH 15.7 % (11.6-14.6); WHITE BLOOD COUNT 6.9 x1000/uL (4.5-11.0)
[2025-03-21 19:40] LABS: POTASSIUM 4.2 mEq/L (3.5-5.1)
[2025-03-21 19:41] LABS: CALCIUM 9.5 mg/dL (8.7-10.4)
[2025-03-21 19:46] LABS: CREATININE 1.6 mg/dL (0.6-1.0)
[2025-03-21 19:47] LABS: BACTERIA URINE 1+; RBC URINE 0-2 /hpf (0-2); SQUAMOUS EPITHELIAL CELL URINE 2+ /lpf (RARE/1+)
[2025-03-21 21:39] LABS: HCG SCREEN NEGATIVE
[2025-03-21] MEDS ORDERED: CEFP200T14 MT (22:17)
[2025-03-22] MEDS: ONDANSETRON 4MG ODT PO ONE (00:06)
[2025-03-22] MEDS: KETOROLAC 30MG/ML VIAL IM ONE (00:11)
[2025-03-22] MEDS ORDERED: KETOROLAC 30MG/ML VIAL IM NR (00:15)
[2025-03-22] MEDS ORDERED: ONDANSETRON 4MG ODT PO NR (00:15)
[2025-03-22 00:17] VITALS: BP 150/89; PULSE 80; RESP 18; O2SAT 100
[2025-05-25] MEDS ORDERED: CEPH500C2 MT (13:07)
== END 2025-03-22 00:25 | disposition home or self-care (01) ==
LOC: ER 19:18
DX: T83.32XA Displacement of intrauterine contraceptive device, initial encounter (principal); N39.0 Urinary tract infection, site not specified; E78.00 Pure hypercholesterolemia, unspecified; I10 Essential (primary) hypertension; J45.909 Unspecified asthma, uncomplicated; M51.372 Other intervertebral disc degeneration, lumbosacral region with discogenic back pain and lower extremity pain; Z79.899 Other long term (current) drug therapy; Z87.440 Personal history of urinary (tract) infections; Z90.5 Acquired absence of kidney; Z98.51 Tubal ligation status; Y92.89 Other specified places as the place of occurrence of the external cause
CPT/HCPCS: 99285; 74176; 80048; 81003; 84703; 85027; 87086; 36415; 96372; J1885; Q0162

== ENCOUNTER 2025-03-26 08:44 | Emergency (ER) | payer BC, MEDICAID ==
[~2025-03-26] VITALS: Ht 167.6 cm; Wt 98.0 kg
[~2025-03-26 08:44] MED LIST changes: +CEFP200T14 MT
[2025-03-26] MEDS ORDERED: DEXAMETHASONE 2MG TABLET PO ONE (10:15)
[2025-03-26] MEDS: DEXAMETHASONE 4MG TABLET PO SCH (10:33)
[2025-03-26] MEDS: ALBUTEROL (0.083%) 2.5MG/3ML NEB HHN SCH (10:37)
[2025-03-26] MEDS: IPRATROPIUM BROMIDE (0.02%) 0.5MG/2.5ML NEB HHN STA (10:37)
[2025-03-26 10:38] VITALS: PULSE 87; RESP 16; O2SAT 95
[2025-03-26] MEDS ORDERED: ALBU90AE INH (11:13)
[2025-03-26 11:44] VITALS: BP 140/75; PULSE 66; RESP 16; TEMP 36.9; O2SAT 99
[2025-05-25] MEDS ORDERED: CEPH500C2 MT (13:07)
== END 2025-03-26 11:56 | disposition home or self-care (01) ==
LOC: ER 08:44
DX: J45.901 Unspecified asthma with (acute) exacerbation (principal); E78.00 Pure hypercholesterolemia, unspecified; I10 Essential (primary) hypertension; E11.9 Type 2 diabetes mellitus without complications; N28.9 Disorder of kidney and ureter, unspecified; Z79.899 Other long term (current) drug therapy; Z98.890 Other specified postprocedural states; Z98.51 Tubal ligation status
CPT/HCPCS: 99291; 71045; 94644; J8540; 94070; 94640; 94664; 98960

== ENCOUNTER 2025-03-27 10:03 | Emergency (ER) | payer BC, MEDICAID ==
[~2025-03-27] VITALS: Ht 162.6 cm; Wt 98.4 kg
[~2025-03-27 10:03] MED LIST changes: +ALBU90AE INH
[2025-03-27 10:23] VITALS: O2SAT 99
[2025-03-27 10:55] LABS: BASOPHILS % 0.2 % (0.0-2.0); HEMATOCRIT. 34.4 % (36.0-48.0); HEMOGLOBIN. 11.5 g/dL (12.0-16.0); LYMPHOCYTES % 9.7 % (20.0-50.0); MEAN CORPUSCULAR HEMOGLOBIN 30.3 pg (28.0-32.0); MEAN CORPUSCULAR HGB CONC 33.4 g/dL (31.0-37.0); MEAN CORPUSCULAR VOLUME 90.8 fL (81.0-99.0); MEAN PLATELET VOLUME 8.4 fl (7.4-10.4); MONOCYTES % 5.3 % (2.0-8.0); NEUTROPHILS % 84.8 % (40.0-76.0); PLATELET 338 x1000/uL (130-400); RED BLOOD CELL COUNT 3.79 mill/uL (4.2-5.4); RED CELL DISTRIBUTION WIDTH 15.7 % (11.6-14.6); WHITE BLOOD COUNT 14.2 x1000/uL (4.5-11.0)
[2025-03-27 11:01] LABS: POTASSIUM 4.2 mEq/L (3.5-5.1)
[2025-03-27 11:02] LABS: CALCIUM 9.7 mg/dL (8.7-10.4)
[2025-03-27 11:07] LABS: CREATININE 1.5 mg/dL (0.6-1.0)
[2025-03-27 11:10] VITALS: BP 123/75; PULSE 85; RESP 18; TEMP 36; O2SAT 97
[2025-05-25] MEDS ORDERED: CEPH500C2 MT (13:07)
== END 2025-03-27 11:26 | disposition home or self-care (01) ==
LOC: ER 10:03
DX: K64.4 Residual hemorrhoidal skin tags (principal); E78.00 Pure hypercholesterolemia, unspecified; J45.909 Unspecified asthma, uncomplicated; I12.9 Hypertensive chronic kidney disease with stage 1 through stage 4 chronic kidney disease, or unspecified chronic kidney disease; N18.9 Chronic kidney disease, unspecified; Z79.899 Other long term (current) drug therapy; Z98.890 Other specified postprocedural states; Z98.51 Tubal ligation status
CPT/HCPCS: 36415; 80048; 85025; 99283

== ENCOUNTER 2025-04-09 18:51 | Emergency (ER) | payer BC, MEDICAID ==
[~2025-04-09] VITALS: Ht 167.6 cm; Wt 100.0 kg
[2025-04-09 19:04] VITALS: O2SAT 99
[2025-04-09 19:07] VITALS: TEMP 36.6; O2SAT 97
[2025-04-09 20:51] LABS: BASOPHILS % 0.7 % (0.0-2.0); EOSINOPHILS % 3.6 % (0.0-5.0); HEMATOCRIT. 37.1 % (36.0-48.0); HEMOGLOBIN. 12.2 g/dL (12.0-16.0); LYMPHOCYTES % 38.3 % (20.0-50.0); MEAN CORPUSCULAR HEMOGLOBIN 30.2 pg (28.0-32.0); MEAN CORPUSCULAR HGB CONC 32.9 g/dL (31.0-37.0); MEAN CORPUSCULAR VOLUME 91.8 fL (81.0-99.0); MEAN PLATELET VOLUME 8.7 fl (7.4-10.4); MONOCYTES % 6.3 % (2.0-8.0); NEUTROPHILS % 51.1 % (40.0-76.0); PLATELET 274 x1000/uL (130-400); RED BLOOD CELL COUNT 4.04 mill/uL (4.2-5.4); RED CELL DISTRIBUTION WIDTH 15.8 % (11.6-14.6); WHITE BLOOD COUNT 5.4 x1000/uL (4.5-11.0)
[2025-04-09 20:56] LABS: CHLORIDE 110 mEq/L (98-107); POTASSIUM 3.9 mEq/L (3.5-5.1); SODIUM 144 mEq/L (136-145)
[2025-04-09 20:57] LABS: CALCIUM 9.5 mg/dL (8.7-10.4); CARBON DIOXIDE 26 mEq/L (21-32)
[2025-04-09 21:02] LABS: CREATININE 1.7 mg/dL (0.6-1.0); GLUCOSE 89 mg/dL (70-105); UREA NITROGEN BLOOD 15 mg/dL (9-23)
[2025-04-09 21:03] LABS: TROPONIN I HIGH SENSITIVITY < 4 ng/L (3.0-34)
[2025-04-09 21:51] VITALS: BP 138/85; PULSE 80; RESP 18
[2025-04-09] MEDS: HYDROCODONE/ACETAMINOPHEN 5/325MG TABLET PO ONE (21:51)
[2025-04-09 23:01] LABS: TROPONIN I HIGH SENSITIVITY < 4 ng/L (3.0-34)
== END 2025-04-09 23:45 | disposition home or self-care (01) ==
LOC: ER 18:51
DX: R07.89 Other chest pain (principal); J45.909 Unspecified asthma, uncomplicated; E78.00 Pure hypercholesterolemia, unspecified; N18.9 Chronic kidney disease, unspecified; I12.9 Hypertensive chronic kidney disease with stage 1 through stage 4 chronic kidney disease, or unspecified chronic kidney disease; Z79.899 Other long term (current) drug therapy; Z98.51 Tubal ligation status
CPT/HCPCS: 36415; 71045; 80048; 84484; 85025; 93005; 99285

== ENCOUNTER 2025-04-17 13:56 | Emergency (ER) | payer MEDICAID ==
[~2025-04-17] VITALS: Ht 167.6 cm; Wt 99.0 kg
[2025-04-17] MEDS: PREDNISONE 20MG TABLET PO ONE (14:18)
[2025-04-17 14:51] VITALS: PULSE 78; RESP 18; O2SAT 96
[2025-04-17] MEDS: IPRATROPIUM/ALBUTEROL 0.5-3(2.5)MG/3ML NEB HHN ONE (14:51)
[2025-04-17] MEDS ORDERED: P50 MT (15:11)
[2025-04-17] MEDS ORDERED: ALBU90AE INH (15:11)
[2025-04-17 15:23] VITALS: BP 134/78; PULSE 81; RESP 18; TEMP 36.9; O2SAT 98
== END 2025-04-17 15:26 | disposition home or self-care (01) ==
LOC: ER 14:14
DX: J45.901 Unspecified asthma with (acute) exacerbation (principal); E78.00 Pure hypercholesterolemia, unspecified; I12.9 Hypertensive chronic kidney disease with stage 1 through stage 4 chronic kidney disease, or unspecified chronic kidney disease; N18.9 Chronic kidney disease, unspecified; Z79.899 Other long term (current) drug therapy; Z98.51 Tubal ligation status
CPT/HCPCS: 99283; 71045; 94640; 93005; J7512; 94070

== ENCOUNTER 2025-04-18 13:01 | Emergency (ER) | payer MEDICAID ==
[~2025-04-18] VITALS: Ht 162.6 cm; Wt 98.0 kg
[~2025-04-18 13:01] MED LIST changes: +P50 MT
[2025-04-18 13:04] VITALS: O2SAT 98
[2025-04-18 13:25] VITALS: BP 130/83; TEMP 37
[2025-04-18 14:53] VITALS: PULSE 73; RESP 18; O2SAT 98
[2025-04-18] MEDS: IPRATROPIUM/ALBUTEROL 0.5-3(2.5)MG/3ML NEB HHN ONE (14:53)
[2025-04-19] MEDS ORDERED: LEVO-65 MT (09:51)
== END 2025-04-18 15:55 | disposition home or self-care (01) ==
LOC: ER 13:13
DX: J45.901 Unspecified asthma with (acute) exacerbation (principal); I10 Essential (primary) hypertension; E78.00 Pure hypercholesterolemia, unspecified; Z79.899 Other long term (current) drug therapy; Z98.51 Tubal ligation status
CPT/HCPCS: 94070; 94640; 94664; 98960; 99283

== ENCOUNTER 2025-04-19 08:15 | Emergency (ER) | payer MEDICAID ==
[~2025-04-19] VITALS: Ht 165.1 cm; Wt 100.0 kg
[2025-04-19 08:21] VITALS: O2SAT 98
[2025-04-19 09:09] LABS: CLARITY URINE CLOUDY (CLEAR); COLOR URINE YELLOW (YELLOW); PH URINE 5.5 (4.5-8.0); SPECIFIC GRAVITY URINE 1.024 (1.005-1.030)
[2025-04-19 09:10] LABS: GLUCOSE URINE NEGATIVE (NEGATIVE); KETONES URINE TRACE (NEGATIVE); LEUKOCYTE ESTERASE URINE 2+ (NEGATIVE); NITRITE URINE NEGATIVE (NEGATIVE); OCCULT BLOOD URINE NEGATIVE (NEGATIVE); PROTEIN URINE TRACE (NEGATIVE); UROBILINOGEN URINE 1.0 E.U./dL (0.2-1.0)
[2025-04-19 09:20] LABS: BACTERIA URINE 4+; SQUAMOUS EPITHELIAL CELL URINE 3+ /lpf (RARE/1+)
[2025-04-19 09:21] LABS: RBC URINE NONE SEEN /hpf (0-2)
[2025-04-19 09:26] LABS: BASOPHILS % 0.5 % (0.0-2.0); EOSINOPHILS % 3.1 % (0.0-5.0); HEMATOCRIT. 37.6 % (36.0-48.0); HEMOGLOBIN. 12.2 g/dL (12.0-16.0); LYMPHOCYTES % 30.5 % (20.0-50.0); MEAN PLATELET VOLUME 8.8 fl (7.4-10.4); MONOCYTES % 9.9 % (2.0-8.0); NEUTROPHILS % 56.0 % (40.0-76.0); PLATELET 247 x1000/uL (130-400); RED BLOOD CELL COUNT 4.10 mill/uL (4.2-5.4); RED CELL DISTRIBUTION WIDTH 16.0 % (11.6-14.6)
[2025-04-19] MEDS ORDERED: LEVO-65 MT (09:51)
[2025-04-19 10:20] VITALS: BP 138/82; PULSE 67; RESP 14; TEMP 36.6; O2SAT 99
[2025-04-19 10:57] LABS: CREATININE 1.5 mg/dL (0.6-1.0)
[2025-04-19 10:58] LABS: UREA NITROGEN BLOOD 19 mg/dL (9-23)
[2025-04-19 10:59] LABS: ASPARTATE AMINOTRANSFERASE 23 IU/L (<34)
[2025-04-19 11:00] LABS: BILIRUBIN TOTAL 0.3 mg/dL (0.1-1.0); PROTEIN TOTAL 6.8 g/dL (6.0-8.3)
== END 2025-04-19 10:22 | disposition home or self-care (01) ==
LOC: ER 08:30
DX: R82.90 Unspecified abnormal findings in urine (principal); J45.909 Unspecified asthma, uncomplicated; I10 Essential (primary) hypertension; E78.00 Pure hypercholesterolemia, unspecified; Z79.899 Other long term (current) drug therapy; Z98.51 Tubal ligation status; Z98.890 Other specified postprocedural states
CPT/HCPCS: 36415; 80053; 81003; 81025; 85025; 99283

== ENCOUNTER 2025-05-09 16:21 | Emergency (ER) | payer MEDICAID ==
[~2025-05-09] VITALS: Ht 157.5 cm; Wt 89.0 kg
[~2025-05-09 16:21] MED LIST changes: +LEVO-65 MT
[2025-05-09 16:27] VITALS: O2SAT 99
[2025-05-09 18:13] LABS: BASOPHILS % 0.6 % (0.0-2.0); EOSINOPHILS % 3.4 % (0.0-5.0); HEMATOCRIT. 36.7 % (36.0-48.0); HEMOGLOBIN. 12.1 g/dL (12.0-16.0); LYMPHOCYTES % 39.8 % (20.0-50.0); MEAN PLATELET VOLUME 8.7 fl (7.4-10.4); MONOCYTES % 7.9 % (2.0-8.0); NEUTROPHILS % 48.3 % (40.0-76.0); PLATELET 280 x1000/uL (130-400); RED BLOOD CELL COUNT 4.00 mill/uL (4.2-5.4); RED CELL DISTRIBUTION WIDTH 15.2 % (11.6-14.6)
[2025-05-09 18:28] LABS: CREATININE 1.6 mg/dL (0.6-1.0)
[2025-05-09 18:29] LABS: UREA NITROGEN BLOOD 17 mg/dL (9-23)
[2025-05-09 18:30] LABS: TROPONIN I HIGH SENSITIVITY < 4 ng/L (3.0-34)
[2025-05-09 19:07] VITALS: BP 152/78; PULSE 57; RESP 17; TEMP 36.8; O2SAT 99
== END 2025-05-09 19:30 | disposition home or self-care (01) ==
LOC: ER 16:21
DX: R07.89 Other chest pain (principal); E78.00 Pure hypercholesterolemia, unspecified; I11.0 Hypertensive heart disease with heart failure; I50.9 Heart failure, unspecified; J45.909 Unspecified asthma, uncomplicated; Z79.899 Other long term (current) drug therapy; Z85.528 Personal history of other malignant neoplasm of kidney; Z90.5 Acquired absence of kidney; Z98.51 Tubal ligation status
CPT/HCPCS: 36415; 71045; 80048; 83880; 84484; 85025; 93005; 99285

== ENCOUNTER 2025-05-16 10:09 | Emergency (ER) | payer BC, MEDICAID ==
[~2025-05-16] VITALS: Ht 167.6 cm; Wt 99.0 kg
[2025-05-16 10:34] VITALS: O2SAT 98
[2025-05-16 11:05] LABS: BASOPHILS % 0.5 % (0.0-2.0); EOSINOPHILS % 4.7 % (0.0-5.0); HEMATOCRIT. 38.1 % (36.0-48.0); HEMOGLOBIN. 12.4 g/dL (12.0-16.0); LYMPHOCYTES % 42.3 % (20.0-50.0); MEAN PLATELET VOLUME 8.7 fl (7.4-10.4); MONOCYTES % 7.4 % (2.0-8.0); NEUTROPHILS % 45.1 % (40.0-76.0); PLATELET 255 x1000/uL (130-400); RED BLOOD CELL COUNT 4.15 mill/uL (4.2-5.4); RED CELL DISTRIBUTION WIDTH 15.4 % (11.6-14.6)
[2025-05-16 11:18] LABS: CREATININE 1.6 mg/dL (0.6-1.0); UREA NITROGEN BLOOD 17 mg/dL (9-23)
[2025-05-16 11:20] LABS: ASPARTATE AMINOTRANSFERASE 19 IU/L (<34); BILIRUBIN DIRECT < 0.1 mg/dL (<=3.0); BILIRUBIN TOTAL 0.3 mg/dL (0.1-1.0); PROTEIN TOTAL 7.3 g/dL (6.0-8.3)
[2025-05-16 12:27] LABS: CLARITY URINE CLEAR (CLEAR); COLOR URINE YELLOW (YELLOW); GLUCOSE URINE NEGATIVE (NEGATIVE); KETONES URINE NEGATIVE (NEGATIVE); LEUKOCYTE ESTERASE URINE 2+ (NEGATIVE); NITRITE URINE NEGATIVE (NEGATIVE); OCCULT BLOOD URINE NEGATIVE (NEGATIVE); PH URINE 5.5 (4.5-8.0); PROTEIN URINE TRACE (NEGATIVE); SPECIFIC GRAVITY URINE 1.025 (1.005-1.030); UROBILINOGEN URINE 0.2 E.U./dL (0.2-1.0)
[2025-05-16] MEDS ORDERED: CEFP200T14 MT (13:06)
[2025-05-16 13:20] LABS: BACTERIA URINE 1+; SQUAMOUS EPITHELIAL CELL URINE 3+ /lpf (RARE/1+)
[2025-05-16 13:21] LABS: RBC URINE NONE SEEN /hpf (0-2); WBC URINE 0-2 /hpf (0-2)
[2025-05-16 13:38] VITALS: BP 146/73; PULSE 57; RESP 19; TEMP 36.9; O2SAT 98
[2025-05-25] MEDS ORDERED: CEPH500C2 MT (13:07)
== END 2025-05-16 13:40 | disposition home or self-care (01) ==
LOC: ER 10:09
DX: N10 Acute pyelonephritis (principal); I12.9 Hypertensive chronic kidney disease with stage 1 through stage 4 chronic kidney disease, or unspecified chronic kidney disease; E11.22 Type 2 diabetes mellitus with diabetic chronic kidney disease; N18.9 Chronic kidney disease, unspecified; E78.00 Pure hypercholesterolemia, unspecified; J45.909 Unspecified asthma, uncomplicated; Z79.899 Other long term (current) drug therapy; Z98.890 Other specified postprocedural states; Z98.51 Tubal ligation status
CPT/HCPCS: 36415; 74176; 80048; 80076; 81003; 81025; 85025; 99284

== ENCOUNTER 2025-05-31 09:57 | Emergency (ER) | payer MEDICAID ==
[~2025-05-31] VITALS: Ht 162.6 cm; Wt 99.0 kg
[~2025-05-31 09:57] MED LIST changes: -CEFP200T14 MT; -CEPH500T MT; -LEVO-65 MT
[2025-05-31 10:01] VITALS: O2SAT 99
[2025-05-31] MEDS: ACETAMINOPHEN 500MG TABLET PO ONE (10:30)
[2025-05-31] MEDS ORDERED: ACET-2708 MT (11:11)
[2025-05-31 11:18] VITALS: BP 131/77; PULSE 67; RESP 20; TEMP 36.9; O2SAT 99
== END 2025-05-31 11:21 | disposition home or self-care (01) ==
LOC: ER 09:57
DX: M17.12 Unilateral primary osteoarthritis, left knee (principal); E78.00 Pure hypercholesterolemia, unspecified; I10 Essential (primary) hypertension; J45.909 Unspecified asthma, uncomplicated; Z98.51 Tubal ligation status; Z85.528 Personal history of other malignant neoplasm of kidney; Z79.899 Other long term (current) drug therapy
CPT/HCPCS: 99283; 73564; A6449

== ENCOUNTER 2025-06-28 22:04 | Emergency (ER) | payer MEDICAID ==
[~2025-06-28] VITALS: Ht 162.6 cm; Wt 100.4 kg
[~2025-06-28 22:04] MED LIST changes: -ALBU05 NEB; -ALBU90AE INH; -AMLO5TAB88 PO; +ASPI-1497 MT; +BUDE10.3 IH; +FINE10TA PO; -LOSA25TA26 MT; +LOSA50TA41 PO; -P50 MT
[2025-06-28 22:54] LABS: BASOPHILS % 0.9 % (0.0-2.0); EOSINOPHILS % 5.1 % (0.0-5.0); HEMATOCRIT. 35.0 % (36.0-48.0); HEMOGLOBIN. 11.6 g/dL (12.0-16.0); LYMPHOCYTES % 36.3 % (20.0-50.0); MEAN PLATELET VOLUME 8.1 fl (7.4-10.4); MONOCYTES % 6.7 % (2.0-8.0); NEUTROPHILS % 51.0 % (40.0-76.0); PLATELET 298 x1000/uL (130-400); RED BLOOD CELL COUNT 3.85 mill/uL (4.2-5.4); RED CELL DISTRIBUTION WIDTH 15.4 % (11.6-14.6)
[2025-06-28 23:08] LABS: CREATININE 1.7 mg/dL (0.6-1.0); UREA NITROGEN BLOOD 18.0 mg/dL (9-23)
[2025-06-28 23:15] LABS: CLARITY URINE CLOUDY (CLEAR); COLOR URINE YELLOW (YELLOW); GLUCOSE URINE NEGATIVE (NEGATIVE); KETONES URINE NEGATIVE (NEGATIVE); LEUKOCYTE ESTERASE URINE 1+ (NEGATIVE); NITRITE URINE NEGATIVE (NEGATIVE); OCCULT BLOOD URINE NEGATIVE (NEGATIVE); PH URINE 5.5 (4.5-8.0); PROTEIN URINE TRACE (NEGATIVE); SPECIFIC GRAVITY URINE 1.021 (1.005-1.030); UROBILINOGEN URINE 0.2 E.U./dL (0.2-1.0)
[2025-06-29 00:24] LABS: SQUAMOUS EPITHELIAL CELL URINE 2+ /lpf (RARE/1+)
[2025-06-29 00:25] LABS: RBC URINE 0-2 /hpf (0-2)
[2025-06-29 00:26] LABS: BACTERIA URINE 2+
[2025-06-29 01:17] LABS: ASPARTATE AMINOTRANSFERASE 22 IU/L (<34); BILIRUBIN DIRECT < 0.1 mg/dL (<=3.0); BILIRUBIN TOTAL 0.3 mg/dL (0.1-1.0); PROTEIN TOTAL 7.3 g/dL (6.0-8.3)
[2025-06-29] MEDS: FAMOTIDINE 20MG TABLET PO ONE (03:06)
[2025-06-29] MEDS: ACETAMINOPHEN 325MG TABLET PO ONE (03:06)
[2025-06-29] MEDS ORDERED: FAMO20TA8 MT (03:08)
[2025-06-29] MEDS ORDERED: NA P133E RC (03:08)
[2025-06-29] MEDS ORDERED: DOCU-405 MT (03:08)
[2025-06-29 03:28] VITALS: BP 134/86; PULSE 73; RESP 14; TEMP 36.7; O2SAT 99
[2025-08-03] MEDS ORDERED: ATOR10TA69 PO (13:02)
[2025-08-03] MEDS ORDERED: ATOR40TA70 PO (13:04)
[2025-08-03] MEDS ORDERED: FINE10TA (13:10)
[2025-08-05] MEDS ORDERED: BENZ200C52 MT (10:17)
[2025-08-05] MEDS ORDERED: LOSA50TA41 PO (10:17)
[2025-08-05] MEDS ORDERED: FINE10TA PO (10:17)
[2025-08-05] MEDS ORDERED: ASPI-1497 MT (10:17)
[2025-08-05] MEDS ORDERED: ATOR40TA70 PO (10:17)
[2025-08-05] MEDS ORDERED: SIME125C MT (10:21)
[2025-08-05] MEDS ORDERED: PANT40TA51 MT (10:21)
== END 2025-06-29 03:30 | disposition home or self-care (01) ==
LOC: ER 22:24
DX: N39.0 Urinary tract infection, site not specified (principal); E78.00 Pure hypercholesterolemia, unspecified; K59.00 Constipation, unspecified; I10 Essential (primary) hypertension; J45.909 Unspecified asthma, uncomplicated; D64.9 Anemia, unspecified; N28.9 Disorder of kidney and ureter, unspecified; Z79.82 Long term (current) use of aspirin; Z79.899 Other long term (current) drug therapy; Z87.440 Personal history of urinary (tract) infections; Z98.51 Tubal ligation status
CPT/HCPCS: 36415; 74176; 80048; 80076; 81003; 85025; 93005; 99284

== ENCOUNTER 2025-07-16 11:48 | Emergency (ER) | payer BC, MEDICAID ==
[~2025-07-16] VITALS: Ht 167.6 cm; Wt 90.0 kg
[~2025-07-16 11:48] MED LIST changes: -CEPH500C2 MT; +DOCU-405 MT; +FAMO20TA8 MT; +NA P133E RC
[2025-07-16 11:57] VITALS: TEMP 37
[2025-07-16] MEDS: DEXAMETHASONE 4MG TABLET PO ONE (13:45)
[2025-07-16 14:09] VITALS: PULSE 67; RESP 18; O2SAT 99
[2025-07-16] MEDS: IPRATROPIUM BROMIDE (0.02%) 0.5MG/2.5ML NEB HHN SCH (14:09)
[2025-07-16] MEDS: ALBUTEROL (0.083%) 2.5MG/3ML NEB HHN SCH (14:09)
[2025-07-16 14:29] VITALS: PULSE 56; RESP 18; O2SAT 99
[2025-07-16 14:47] VITALS: PULSE 51; RESP 18; O2SAT 100
[2025-07-16] MEDS ORDERED: ALBU18HF2 IH (15:53)
[2025-07-16] MEDS ORDERED: BENZ200C52 MT (15:53)
[2025-07-16 16:16] VITALS: BP 118/72; PULSE 84; RESP 18; O2SAT 98
[2025-08-03] MEDS ORDERED: ATOR10TA69 PO (13:02)
[2025-08-03] MEDS ORDERED: ATOR40TA70 PO (13:04)
[2025-08-03] MEDS ORDERED: FINE10TA (13:10)
[2025-08-05] MEDS ORDERED: ATOR40TA70 PO (10:17)
[2025-08-05] MEDS ORDERED: FINE10TA PO (10:17)
[2025-08-05] MEDS ORDERED: BENZ200C52 MT (10:17)
[2025-08-05] MEDS ORDERED: LOSA50TA41 PO (10:17)
[2025-08-05] MEDS ORDERED: ASPI-1497 MT (10:17)
[2025-08-05] MEDS ORDERED: PANT40TA51 MT (10:21)
[2025-08-05] MEDS ORDERED: SIME125C MT (10:21)
== END 2025-07-16 17:11 | disposition home or self-care (01) ==
LOC: ER 12:33
DX: J45.901 Unspecified asthma with (acute) exacerbation (principal); J06.9 Acute upper respiratory infection, unspecified; B97.89 Other viral agents as the cause of diseases classified elsewhere; E78.00 Pure hypercholesterolemia, unspecified; I10 Essential (primary) hypertension; Z98.51 Tubal ligation status; Z94.0 Kidney transplant status; Z79.899 Other long term (current) drug therapy; Z79.82 Long term (current) use of aspirin
CPT/HCPCS: 99285; 71045; 94640; J8540; 94070

== ENCOUNTER 2025-07-21 09:46 | Inpatient (IN) | payer MEDICAID ==
[~2025-07-21] VITALS: Ht 165.1 cm; Wt 101.6 kg
[~2025-07-21 09:46] MED LIST changes: +ALBU18HF2 IH; +BENZ200C52 MT
[2025-07-21 10:21] VITALS: O2SAT 72
[2025-07-21 10:52] LABS: CLARITY URINE CLOUDY (CLEAR); COLOR URINE YELLOW (YELLOW); GLUCOSE URINE NEGATIVE (NEGATIVE); KETONES URINE TRACE (NEGATIVE); LEUKOCYTE ESTERASE URINE 2+ (NEGATIVE); NITRITE URINE NEGATIVE (NEGATIVE); OCCULT BLOOD URINE NEGATIVE (NEGATIVE); PH URINE 5.5 (4.5-8.0); PROTEIN URINE TRACE (NEGATIVE); SPECIFIC GRAVITY URINE 1.023 (1.005-1.030); UROBILINOGEN URINE 1.0 E.U./dL (0.2-1.0)
[2025-07-21 10:59] LABS: BASOPHILS % 0.6 % (0.0-2.0); EOSINOPHILS % 5.6 % (0.0-5.0); HEMATOCRIT. 40.2 % (36.0-48.0); HEMOGLOBIN. 13.2 g/dL (12.0-16.0); LYMPHOCYTES % 34.2 % (20.0-50.0); MONOCYTES % 7.1 % (2.0-8.0); NEUTROPHILS % 52.5 % (40.0-76.0); RED BLOOD CELL COUNT 4.35 mill/uL (4.2-5.4); RED CELL DISTRIBUTION WIDTH 16.4 % (11.6-14.6)
[2025-07-21 11:12] LABS: CREATININE 1.5 mg/dL (0.6-1.0)
[2025-07-21 11:13] LABS: HCG SCREEN NEGATIVE; UREA NITROGEN BLOOD 12.0 mg/dL (9-23)
[2025-07-21 11:15] LABS: ASPARTATE AMINOTRANSFERASE 17 IU/L (<34); BILIRUBIN DIRECT < 0.1 mg/dL (<=3.0); BILIRUBIN TOTAL 0.4 mg/dL (0.1-1.0); PROTEIN TOTAL 7.4 g/dL (6.0-8.3)
[2025-07-21 11:37] LABS: BACTERIA URINE 2+; RBC URINE 0-2 /hpf (0-2); SQUAMOUS EPITHELIAL CELL URINE 3+ /lpf (RARE/1+); YEAST URINE NONE SEEN
[2025-07-21] MEDS: CEFTRIAXONE 1GM/50ML 50 ML IV SCH (13:38)
[2025-07-21] MEDS ORDERED: MAGNESIUM/ALUMINUM HYDROXIDE/SIMETHICONE 30ML UDC PO PRN (15:15)
[2025-07-21] MEDS ORDERED: ACETAMINOPHEN 325MG TABLET PO PRN (15:15)
[2025-07-21] MEDS ORDERED: CEFEPIME 1GM IN DEXT 5% 50ML IV SCH (15:15)
[2025-07-21] MEDS ORDERED: ZOLPIDEM TARTRATE 5MG TABLET PO PRN (15:15)
[2025-07-21] MEDS ORDERED: CLONIDINE 0.1MG TABLET PO PRN (15:15)
[2025-07-21] MEDS ORDERED: NALOXONE HCL 0.4MG/ML VIAL IV PRN (15:30)
[2025-07-21 16:05] VITALS: BP 134/91; PULSE 88; RESP 16; TEMP 36.3; TEMP 36.3624; O2SAT 100
[2025-07-21] MEDS: SODIUM CHLORIDE 0.9% 1,000 ML IV SCH (17:02)
[2025-07-21] MEDS: CEFEPIME 2GM PREMIX 100ML IV SCH (17:28)
[2025-07-21] MEDS: ONDANSETRON HCL 4MG/2ML INJ IV PRN (17:46)
[2025-07-21] MEDS: HYDROCODONE/ACETAMINOPHEN 5/325MG TABLET PO PRN (17:46)
[2025-07-21 20:00] VITALS: BP 115/72; PULSE 63; RESP 18; TEMP 36.6; O2SAT 99
[2025-07-21] MEDS: ENOXAPARIN 30MG/0.3ML SYR SUBCUT SCH (21:00)
[2025-07-21] MEDS: ATORVASTATIN CALCIUM 20MG TABLET PO SCH (22:10)
[2025-07-21] MEDS: LOSARTAN 50 MG TABLET PO SCH (22:10)
[2025-07-22] VITALS: BP 108/65; PULSE 79; RESP 18; TEMP 36.4
[2025-07-22 04:00] VITALS: BP 137/85; PULSE 62; RESP 18; TEMP 36.4; O2SAT 97
[2025-07-22 07:25] LABS: BASOPHILS % 0.7 % (0.0-2.0); EOSINOPHILS % 5.6 % (0.0-5.0); HEMATOCRIT. 37.8 % (36.0-48.0); HEMOGLOBIN. 12.7 g/dL (12.0-16.0); LYMPHOCYTES % 31.1 % (20.0-50.0); MEAN PLATELET VOLUME 8.9 fl (7.4-10.4); MONOCYTES % 8.5 % (2.0-8.0); NEUTROPHILS % 54.1 % (40.0-76.0); RED BLOOD CELL COUNT 4.13 mill/uL (4.2-5.4); RED CELL DISTRIBUTION WIDTH 15.8 % (11.6-14.6)
[2025-07-22 08:00] VITALS: BP 125/73; PULSE 69; RESP 18; TEMP 36.5; O2SAT 97
[2025-07-22] MEDS: ASPIRIN 81MG EC TABLET PO SCH (09:48)
[2025-07-22] MEDS: PANTOPRAZOLE SODIUM 40 MG/VIAL IV SCH (09:49)
[2025-07-22 10:39] LABS: *AMPHETAMINES SCREEN URINE NEGATIVE (NEGATIVE)
[2025-07-22 10:40] LABS: *BARBITURATES SCREEN URINE NEGATIVE (NEGATIVE); *BENZODIAZEPINES SCREEN URINE NEGATIVE (NEGATIVE); *COCAINE SCREEN URINE NEGATIVE (NEGATIVE); CANNABINOID URINE SCREEN NEGATIVE (NEGATIVE); ECSTASY MDMA SCREEN URINE NEGATIVE (NEGATIVE); METHADONE URINE SCREEN NEGATIVE (NEGATIVE); OPIATES URINE SCREEN NEGATIVE (NEGATIVE); PHENCYCLIDINE URINE SCREEN NEGATIVE (NEGATIVE)
[2025-07-22 12:00] VITALS: BP 123/70; PULSE 66; RESP 17; TEMP 36.4; O2SAT 97
[2025-07-22 12:58] LABS: PLATELET 280 x1000/uL (130-400)
[2025-07-22 16:00] VITALS: BP 124/70; PULSE 68; RESP 17; TEMP 36.6; O2SAT 97
[2025-07-22 20:00] VITALS: BP 122/64; PULSE 64; RESP 18; TEMP 36.4; O2SAT 96
[2025-07-23] VITALS: BP 106/64; PULSE 78; RESP 18; TEMP 36.5; O2SAT 96
[2025-07-23 06:26] LABS: BASOPHILS % 0.5 % (0.0-2.0); EOSINOPHILS % 6.0 % (0.0-5.0); HEMATOCRIT. 36.9 % (36.0-48.0); HEMOGLOBIN. 12.0 g/dL (12.0-16.0); LYMPHOCYTES % 25.5 % (20.0-50.0); MEAN PLATELET VOLUME 9.2 fl (7.4-10.4); MONOCYTES % 8.0 % (2.0-8.0); NEUTROPHILS % 60.0 % (40.0-76.0); PLATELET 242 x1000/uL (130-400); RED BLOOD CELL COUNT 4.03 mill/uL (4.2-5.4); RED CELL DISTRIBUTION WIDTH 16.0 % (11.6-14.6)
[2025-07-23 08:00] VITALS: BP 110/70; PULSE 78; RESP 16; TEMP 36.6; O2SAT 100
[2025-07-23] MEDS ORDERED: LEVO750T68 MT (10:31)
[2025-07-23 12:46] VITALS: BP 109/63; PULSE 88; RESP 17; TEMP 97.4
[2025-07-23 13:04] VITALS: BP 106/68; PULSE 68; RESP 16; TEMP 36.6; O2SAT 100
== END 2025-07-23 15:15 | disposition home or self-care (01) | DRG 690 ==
LOC: ER 09:46 → 7EST 14:47 → EDBEDREQTM 15:07 → EDBEDREQ 15:07 → ENRESERV 15:41
PROVIDERS: ADMIT Internal Medicine; ATTEND Internal Medicine
DX: N12 Tubulo-interstitial nephritis, not specified as acute or chronic (principal); I10 Essential (primary) hypertension; E11.9 Type 2 diabetes mellitus without complications; E78.00 Pure hypercholesterolemia, unspecified; J45.909 Unspecified asthma, uncomplicated; Z85.528 Personal history of other malignant neoplasm of kidney; Z90.5 Acquired absence of kidney; Z98.51 Tubal ligation status; Z79.899 Other long term (current) drug therapy
CPT/HCPCS: 36415; 74176; 80048; 80076; 80305; 81003; 84443; 84703; 85025; 87077; 87186; 93970; 96365; 99285; A4606; J0692; J0696; J1650; J2405; J2470

== ENCOUNTER 2025-08-18 11:03 | Emergency (ER) | payer MEDICAID ==
[~2025-08-18] VITALS: Ht 162.6 cm; Wt 101.0 kg
[~2025-08-18 11:03] MED LIST changes: -ATOR20TA PO; +ATOR40TA70 PO; -FAMO20TA8 MT; +PANT40TA51 MT; +SIME125C MT
[2025-08-18 11:14] VITALS: TEMP 36.7; O2SAT 99
[2025-08-18 12:35] LABS: BASOPHILS % 0.7 % (0.0-2.0); EOSINOPHILS % 5.3 % (0.0-5.0); HEMATOCRIT. 36.6 % (36.0-48.0); HEMOGLOBIN. 11.5 g/dL (12.0-16.0); LYMPHOCYTES % 33.9 % (20.0-50.0); MEAN PLATELET VOLUME 8.7 fl (7.4-10.4); MONOCYTES % 9.2 % (2.0-8.0); NEUTROPHILS % 50.9 % (40.0-76.0); PLATELET 266 x1000/uL (130-400); RED BLOOD CELL COUNT 3.89 mill/uL (4.2-5.4); RED CELL DISTRIBUTION WIDTH 16.1 % (11.6-14.6)
[2025-08-18 12:50] LABS: CREATININE 1.6 mg/dL (0.6-1.0); UREA NITROGEN BLOOD 11.0 mg/dL (9-23)
[2025-08-18 12:51] LABS: TROPONIN I HIGH SENSITIVITY < 4 ng/L (3.0-34)
[2025-08-18] MEDS: FAMOTIDINE 20MG TABLET PO NR (13:04)
[2025-08-18] MEDS: MAGNESIUM/ALUMINUM HYDROXIDE/SIMETHICONE 30ML UDC PO NR (13:04)
[2025-08-18 13:08] LABS: HCG SCREEN NEGATIVE
[2025-08-18 14:44] VITALS: BP 159/81; PULSE 58; RESP 14; O2SAT 100
== END 2025-08-18 14:46 | disposition home or self-care (01) ==
LOC: ER 11:03
DX: R07.89 Other chest pain (principal); E11.9 Type 2 diabetes mellitus without complications; E78.00 Pure hypercholesterolemia, unspecified; I10 Essential (primary) hypertension; R06.02 Shortness of breath; J45.909 Unspecified asthma, uncomplicated; Z79.82 Long term (current) use of aspirin; Z87.19 Personal history of other diseases of the digestive system; Z98.51 Tubal ligation status; Z79.899 Other long term (current) drug therapy
CPT/HCPCS: 36415; 71045; 80048; 83880; 84484; 84703; 85025; 93005; 99285

== ENCOUNTER 2025-08-27 09:39 | Emergency (ER) | payer MEDICAID ==
[~2025-08-27] VITALS: Ht 167.6 cm; Wt 110.0 kg
[2025-08-27 10:05] VITALS: TEMP 36.7; O2SAT 98
[2025-08-27 10:52] LABS: BASOPHILS % 0.7 % (0.0-2.0); EOSINOPHILS % 3.9 % (0.0-5.0); HEMATOCRIT. 34.7 % (36.0-48.0); HEMOGLOBIN. 11.2 g/dL (12.0-16.0); LYMPHOCYTES % 29.8 % (20.0-50.0); MEAN PLATELET VOLUME 8.6 fl (7.4-10.4); MONOCYTES % 7.7 % (2.0-8.0); NEUTROPHILS % 57.9 % (40.0-76.0); PLATELET 277 x1000/uL (130-400); RED BLOOD CELL COUNT 3.81 mill/uL (4.2-5.4); RED CELL DISTRIBUTION WIDTH 16.1 % (11.6-14.6)
[2025-08-27 11:12] LABS: CREATININE 1.5 mg/dL (0.6-1.0); UREA NITROGEN BLOOD 13 mg/dL (9-23)
[2025-08-27 11:13] LABS: TROPONIN I HIGH SENSITIVITY < 4 ng/L (3.0-34)
[2025-08-27 11:14] LABS: ASPARTATE AMINOTRANSFERASE 21 IU/L (<34); BILIRUBIN DIRECT < 0.1 mg/dL (<=3.0); BILIRUBIN TOTAL 0.4 mg/dL (0.1-1.0)
[2025-08-27 11:15] LABS: PROTEIN TOTAL 6.9 g/dL (6.0-8.3)
[2025-08-27 11:37] LABS: CLARITY URINE TURBID (CLEAR); COLOR URINE YELLOW (YELLOW); GLUCOSE URINE NEGATIVE (NEGATIVE); KETONES URINE NEGATIVE (NEGATIVE); LEUKOCYTE ESTERASE URINE 1+ (NEGATIVE); NITRITE URINE NEGATIVE (NEGATIVE); OCCULT BLOOD URINE 1+ (NEGATIVE); PH URINE 5.5 (4.5-8.0); PROTEIN URINE 1+ (NEGATIVE); SPECIFIC GRAVITY URINE 1.023 (1.005-1.030); UROBILINOGEN URINE 1.0 E.U./dL (0.2-1.0)
[2025-08-27] MEDS ORDERED: SUCR1TAB MT (11:52)
[2025-08-27] MEDS ORDERED: OMEP40CA20 MT (11:52)
[2025-08-27 11:53] LABS: SQUAMOUS EPITHELIAL CELL URINE 3+ /lpf (RARE/1+)
[2025-08-27 11:54] LABS: BACTERIA URINE 4+; RBC URINE 0-2 /hpf (0-2); WBC URINE 0-2 /hpf (0-2)
[2025-08-27 12:26] VITALS: BP 128/64; PULSE 89; RESP 16; O2SAT 100
== END 2025-08-27 12:31 | disposition home or self-care (01) ==
LOC: ER 09:39
DX: M79.604 Pain in right leg (principal); J45.909 Unspecified asthma, uncomplicated; E78.00 Pure hypercholesterolemia, unspecified; I10 Essential (primary) hypertension; Z79.899 Other long term (current) drug therapy; Z86.718 Personal history of other venous thrombosis and embolism; Z98.51 Tubal ligation status
CPT/HCPCS: 36415; 80048; 80076; 81003; 81025; 84484; 85025; 93005; 93971; 99284

== ENCOUNTER 2025-09-13 23:42 | Emergency (ER) | payer MEDICAID ==
[~2025-09-13] VITALS: Ht 165.1 cm; Wt 103.0 kg
[~2025-09-13 23:42] MED LIST changes: +OMEP40CA20 MT; +SUCR1TAB MT
[2025-09-13 23:46] VITALS: O2SAT 100
[2025-09-14 00:59] LABS: CLARITY URINE CLOUDY (CLEAR); COLOR URINE YELLOW (YELLOW); GLUCOSE URINE NEGATIVE (NEGATIVE); KETONES URINE NEGATIVE (NEGATIVE); LEUKOCYTE ESTERASE URINE TRACE (NEGATIVE); NITRITE URINE NEGATIVE (NEGATIVE); OCCULT BLOOD URINE 2+ (NEGATIVE); PH URINE 5.5 (4.5-8.0); PROTEIN URINE 2+ (NEGATIVE); SPECIFIC GRAVITY URINE 1.025 (1.005-1.030); UROBILINOGEN URINE 1.0 E.U./dL (0.2-1.0)
[2025-09-14] MEDS: ACETAMINOPHEN 500MG TABLET PO ONE (01:27)
[2025-09-14] MEDS: PROPRANOLOL HCL 10MG TABLET PO ONE (01:27)
[2025-09-14] MEDS: IBUPROFEN 800MG TABLET PO ONE (01:40)
[2025-09-14 01:59] VITALS: BP 157/88; PULSE 68; RESP 16; TEMP 36.8; O2SAT 98
[2025-09-14 05:11] LABS: SQUAMOUS EPITHELIAL CELL URINE 3+ /lpf (RARE/1+)
[2025-09-14 05:13] LABS: RBC URINE 0-2 /hpf (0-2); WBC URINE 0-2 /hpf (0-2)
[2025-09-14 05:14] LABS: BACTERIA URINE 1+
[2025-10-12] MEDS ORDERED: HYDR50TA40 MT (09:41)
[2025-10-12] MEDS ORDERED: LOSA100T33 MT (09:41)
== END 2025-09-14 02:00 | disposition home or self-care (01) ==
LOC: ER 23:42
DX: R51.9 Headache, unspecified (principal); I10 Essential (primary) hypertension; E78.00 Pure hypercholesterolemia, unspecified; J45.909 Unspecified asthma, uncomplicated; Z79.82 Long term (current) use of aspirin; Z80.9 Family history of malignant neoplasm, unspecified; Z85.528 Personal history of other malignant neoplasm of kidney; Z98.51 Tubal ligation status
CPT/HCPCS: 36415; 80048; 81003; 85025; 99283

== ENCOUNTER 2025-09-20 18:21 | Emergency (ER) | payer MEDICAID ==
[~2025-09-20] VITALS: Ht 167.6 cm; Wt 105.0 kg
[2025-09-20 18:48] VITALS: TEMP 37.2; O2SAT 97
[2025-09-20 19:10] LABS: CLARITY URINE CLOUDY (CLEAR); COLOR URINE YELLOW (YELLOW); GLUCOSE URINE NEGATIVE (NEGATIVE); KETONES URINE NEGATIVE (NEGATIVE); LEUKOCYTE ESTERASE URINE TRACE (NEGATIVE); NITRITE URINE NEGATIVE (NEGATIVE); OCCULT BLOOD URINE NEGATIVE (NEGATIVE); PH URINE 5.5 (4.5-8.0); PROTEIN URINE TRACE (NEGATIVE); SPECIFIC GRAVITY URINE 1.020 (1.005-1.030); UROBILINOGEN URINE 0.2 E.U./dL (0.2-1.0)
[2025-09-20 19:25] LABS: BASOPHILS % 0.8 % (0.0-2.0); EOSINOPHILS % 3.6 % (0.0-5.0); HEMATOCRIT. 36.7 % (36.0-48.0); HEMOGLOBIN. 11.6 g/dL (12.0-16.0); LYMPHOCYTES % 37.0 % (20.0-50.0); MONOCYTES % 9.0 % (2.0-8.0); NEUTROPHILS % 49.6 % (40.0-76.0); RED BLOOD CELL COUNT 4.03 mill/uL (4.2-5.4); RED CELL DISTRIBUTION WIDTH 16.0 % (11.6-14.6)
[2025-09-20 19:30] LABS: BACTERIA URINE 3+; RBC URINE 0-2 /hpf (0-2); SQUAMOUS EPITHELIAL CELL URINE 2+ /lpf (RARE/1+); WBC URINE 0-2 /hpf (0-2)
[2025-09-20 19:33] LABS: CREATININE 1.5 mg/dL (0.6-1.0)
[2025-09-20 19:34] LABS: UREA NITROGEN BLOOD 12.0 mg/dL (9-23)
[2025-09-20 19:46] LABS: MEAN PLATELET VOLUME 8.9 fl (7.4-10.4); PLATELET 262 x1000/uL (130-400)
[2025-09-20] MEDS: KETOROLAC 15MG/ML VIAL IM ONE (21:55)
[2025-09-20] MEDS ORDERED: CEPH500C2 MT (23:09)
[2025-09-20 23:22] VITALS: BP 170/109; PULSE 62; RESP 15; O2SAT 99
== END 2025-09-20 23:24 | disposition home or self-care (01) ==
LOC: ER 18:32
DX: N39.0 Urinary tract infection, site not specified (principal); I10 Essential (primary) hypertension; E78.00 Pure hypercholesterolemia, unspecified; J45.909 Unspecified asthma, uncomplicated; Z98.51 Tubal ligation status; Z90.5 Acquired absence of kidney; Z98.890 Other specified postprocedural states; Z79.899 Other long term (current) drug therapy; Z79.82 Long term (current) use of aspirin
CPT/HCPCS: 99285; 74176; 80048; 81003; 81025; 85025; 36415; 96372; J1885

== ENCOUNTER 2025-09-26 11:58 | Emergency (ER) | payer MEDICAID ==
[~2025-09-26] VITALS: Ht 162.6 cm; Wt 103.0 kg
[~2025-09-26 11:58] MED LIST changes: +CEPH500C2 MT
[2025-09-26 12:07] VITALS: O2SAT 98
[2025-09-26 13:28] VITALS: BP 168/88; PULSE 76; RESP 16; TEMP 36.7; O2SAT 100
== END 2025-09-26 13:29 | disposition home or self-care (01) ==
LOC: ER 12:59
DX: J06.9 Acute upper respiratory infection, unspecified (principal); E78.00 Pure hypercholesterolemia, unspecified; I10 Essential (primary) hypertension; J45.901 Unspecified asthma with (acute) exacerbation; Z79.899 Other long term (current) drug therapy; Z98.51 Tubal ligation status; Z20.822 Contact with and (suspected) exposure to COVID-19
CPT/HCPCS: 71045; 87426; 93005; 99285; A4606

== ENCOUNTER 2025-10-06 09:02 | Emergency (ER) | payer MEDICAID ==
[~2025-10-06] VITALS: Ht 165.1 cm; Wt 101.0 kg
[2025-10-06 09:42] VITALS: O2SAT 98
[2025-10-06 10:44] LABS: CREATININE 1.5 mg/dL (0.6-1.0)
[2025-10-06 10:45] LABS: UREA NITROGEN BLOOD 8.0 mg/dL (9-23)
[2025-10-06 11:17] VITALS: BP 142/78; PULSE 84; RESP 18; TEMP 36.7; O2SAT 98
[2025-10-12] MEDS ORDERED: LOSA100T33 MT (09:41)
[2025-10-12] MEDS ORDERED: HYDR50TA40 MT (09:41)
== END 2025-10-06 11:23 | disposition home or self-care (01) ==
LOC: ER 09:02
DX: B34.9 Viral infection, unspecified (principal); E78.00 Pure hypercholesterolemia, unspecified; I10 Essential (primary) hypertension; J45.909 Unspecified asthma, uncomplicated; N19 Unspecified kidney failure; Z23 Encounter for immunization; Z55.6 Problems related to health literacy; Z98.51 Tubal ligation status; Z79.82 Long term (current) use of aspirin; Z79.899 Other long term (current) drug therapy
CPT/HCPCS: 36415; 71045; 80048; 93005; 99285